=== PATIENT | male | born 1935 | race Caucasian/White ===

== ENCOUNTER 2017-04-22 10:00 | Outpatient (RCR) | payer MEDICARE, OTHER, SELFPAY ==
[2017-04-11 09:40] VITALS: BP 140/71; PULSE 77; RESP 18; TEMP 36.4; BMI 32.0
--- NOTE | 2017-04-11 12:35 | PCM.WC.HP ---
(1) Non-pressure chronic ulcer of right lower leg with fat layer exposed Status: Acute Current Visit: Yes Code(s): L97.912 - Non-pressure chronic ulcer of unspecified part of right lower leg with fat layer exposed (2) Type 2 diabetes mellitus with diabetic polyneuropathy Status: Acute Current Visit: Yes Code(s): E11.42 - Type 2 diabetes mellitus with diabetic polyneuropathy (3) PVD (peripheral vascular disease) Status: Acute Current Visit: Yes Code(s): I73.9 - Peripheral vascular disease, unspecified (4) Edema, lower extremity Status: Acute Current Visit: Yes Code(s): R60.0 - Localized edema (5) Malnutrition Status: Acute Current Visit: Yes Code(s): E46 - Unspecified protein-calorie malnutrition History of Present Illness Date of Service: 04/11/17 Chief Complaint: non healing ulcer to right lower leg History of Wound: This 82-year-old diabetic male presents to the wound healing center today with chief complaint of nonhealing ulcer to the anterior lateral aspect of the right lower leg. Patient states approximately 2-1/2 months ago the corner of the car door caught his leg and tore some skin. Since then, the area progressively got worse. Recently the ulcer is breathing pretty stable in size. Patient has been changing dressing daily with gauze. He does relate some drainage to the area but denies any purulence. He had previously been seeing his primary care physician, Dr. Nicole, who has been treating the area. He prescribed the patient ciprofloxacin after his most recent cultures returned from the ulcer. He has 1 day left of antibiotics. Patient also relates he has tried using bactroban and silvadene to the ulcer. So far nothing has helped. He currently denies any feelings of nausea, vomiting, fever, or chills. Past Medical History Past Medical History: Please see intake form Allergies/Adverse Reactions: Allergies amoxicillin [From Augmentin] Allergy (Verified 04/11/17 09:55) Itching bacitracin [From Neosporin ([id number])] Allergy (Verified 04/11/17 09:55) Rash clavulanic acid [From Augmentin] Allergy (Verified 04/11/17 09:55) Itching neomycin [From Neosporin ([id number])] Allergy (Verified 04/11/17 09:55) Rash Penicillins Allergy (Verified 04/11/17 09:55) Unknown polymyxin B [From Neosporin ([id number])] Allergy (Verified 04/11/17 09:55) Rash prednisone Allergy (Verified 04/11/17 09:55) Itching Home Medications: Ambulatory Orders Medication Instructions Recorded Aspirin 81 mg PO DAILY 04/11/17 Atorvastatin Calcium [Lipitor] 20 mg PO QHS 04/11/17 Ciprofloxacin [Cipro] 250 mg PO BID 04/11/17 Clobetasol Propionate/Emoll 0.05 gm TP DAILY PRN 04/11/17 [Clobetasol Emollnt 0.05% Foam] Clopidogrel Bisulfate [Clopidogrel] 75 mg PO Q3D 04/11/17 Dexamethasone 1 mg PO DAILY 04/11/17 Metformin HCl 500 mg PO BID 04/11/17 Mupirocin [Bactroban] 1 applic TOPICAL DAILY PRN 04/11/17 Silver Sulfadiazine [Ssd] 25 gm TP BID 04/11/17 Lives: Spouse/ Significant Other Smoking Status: Current every day smoker Tobacco Use: Cigarettes Drugs: None Review of Systems Constitutional: Reports: Weight Change. Denies: Chills, Fever Cardiovascular: Denies: Chest Pain, Palpitations Respiratory: Denies: Cough, Shortness of Breath Musculoskeletal: Reports: Leg Pain - right lower leg in area of ulcer Skin: Reports: Wounds - right lower leg - Physical Exam Vital Signs Temp Pulse Resp BP 97.5 F L 77 18 140/71 H 04/11/17 09:40 04/11/17 09:40 04/11/17 09:40 04/11/17 09:40 General: Alert, Oriented x3, Cooperative Extremities: Capillary Refill Less than 3 Seconds, No Calf Tenderness - Negative Arslan and Raines sign bilateral, Cool, Diminished Peripheral Pulses - DP and PT pulses faintly palpable to the right. DP and PT pulses palpable to the left, Edema - Bilateral lower extremity, Tenderness - to area of ulceration to right lower leg Skin: Ulcer/ Wound - Chronic nonhealing ulcer noted to right proximal anterior lateral lower leg. Ulcer dimensions noted below. Majority of the ulcer base is yellow fibrotic tissue and adherent slough. Slight serous drainage appreciated. No surrounding cellulitis noted. No increased warmth. Edema noted to the right lower extremity. No purulence appreciated and no malodor noted. No probing, no tracking, no undermining. Wound Measurements and Assessment WC - Nurse 1 - General Ulcer Measurement Start: 04/11/17 09:09 Freq: Status: Active Protocol: Activity Type Activity Date Activity User E-Sign Co-Sign Detail Recorded Client Recorded Date Recorded By Document 04/11/17 09:40 TM [id number] 04/11/17 10:00 TM 04/11/17 09:40 Wound Center Nurse 1 [Ulcer Assessment Protocol: NORA.WD.LOC] #1 right lateral le trauma ulcer -Combined with other wound No -Current Size (cm) - Length 4.0 -Current Size (cm) - Width 2.7 -Current Size (cm) - Depth 0.4 -Total Square Cm 10.80 -Date of Last Picture (Recall this 04/11/17 field) -Photo Taken Yes -Epithelialization None Present -Tunneling No -Undermining/Tunneling No -Circular Undermining No -Classification - Thickness Full Thickness without Exposed Support Structure -Exudate Amt Large (67-100%) -Exudate Type Serosanguineous -Wound Margin Distinct, Outline Attached -Granulation Amt Small (1-33%) -Granulation Quality [place] -Slough/Fibrin Yes -Necrosis Amt Large (67-100%) -Necrotic Tissue Type Adherent Slough -Structure Exposed Fascia Fat Layer Exposed -Texture (Olamide-wound Skin Appearance) Localized Edema -Moisture (Olamide-wound Skin Appearance No Abnormality ) -Color (Olamide-wound Skin Appearance) Erythema Hemosiderin Staining -Temperature (Olamide-wound Skin No Abnormality Appearance) (Pt Warm) -Tenderness on Palpation (Olamide-wound Yes Skin Appearance) -Ulcer Cleansing Rinsed/ Irrigated with Saline -Foul Odor after Cleansing No -Anesthetic Used 4% Lidocaine Solution [Edema Assessment] -Lower Limb Edema Present Yes -Right Calf (cm) 36.5 -Right Ankle (cm) 25.1 -Left Calf (cm) 36.3 -Left Ankle (cm) 25.6 WC - Nurse 2 - General Ulcer CM Notes Start: 04/11/17 09:09 Freq: Status: Active Protocol: Activity Type Activity Date Activity User E-Sign Co-Sign Detail Recorded Client Recorded Date Recorded By Document 04/11/17 10:21 MW [id number] 04/11/17 10:28 MW 04/11/17 10:21 Wound Center Nurse 2 [Procedure/Treatment] #1 right lateral le trauma ulcer -Time 10:27 -Correct Patient Yes -Correct Side, Site, Position Yes -Correct Procedure Yes -Procedure Performed No -Post Debridement Size (cm) - Length 4.0 -Post Debridement Size (cm) - Width 2.7 -Post Debridement Size (cm) - Depth 0.4 -Total Square Cm 10.80 -Wound/Ulcer Outcome Not Healed -Ulcer Cleansing Rinsed/ Irrigated with Saline -Foul Odor after Cleansing No -Bioengineered Tissue No -Cetacaine [place] No -Bleeding Controlled with NA -Treatment Response Procedure Tolerated Well [See Physician Procedure note for Specifics] Pain Scale: 0-10 Numeric [Pain] -Is Patient Pain Free? Yes Musculoskeletal: Tenderness - Some tenderness appreciated to right lower leg in the area of the ulcer. Neurological: - - Epicritic sensation absent lower extremities. Psych/Mental Status: Normal Affect, Appropriate Debridement Note Post-Debridement Measurements/Treatment WC - Nurse 2 - General Ulcer CM Notes Start: 04/11/17 09:09 Freq: Status: Active Protocol: Activity Type Activity Date Activity User E-Sign Co-Sign Detail Recorded Client Recorded Date Recorded By Document 04/11/17 10:21 MW [id number] 04/11/17 10:28 MW 04/11/17 10:21 Wound Center Nurse 2 #1 right lateral le trauma ulcer -Time 10:27 -Correct Patient Yes -Correct Side, Site, Position Yes -Correct Procedure Yes -Procedure Performed No -Post Debridement Size (cm) - Length 4.0 -Post Debridement Size (cm) - Width 2.7 -Post Debridement Size (cm) - Depth 0.4 -Total Square Cm 10.80 -Wound/Ulcer Outcome Not Healed -Ulcer Cleansing Rinsed/ Irrigated with Saline -Foul Odor after Cleansing No -Bioengineered Tissue No -Cetacaine [place] No -Bleeding Controlled with NA -Treatment Response Procedure Tolerated Well Pain Scale: 0-10 Numeric Is Patient Pain Free? Yes No debridement was completed today Assessment/Plan Active Problems Non-pressure chronic ulcer of right lower leg with fat layer exposed (Acute) Type 2 diabetes mellitus with diabetic polyneuropathy (Acute) PVD (peripheral vascular disease) (Acute) Edema, lower extremity (Acute) Malnutrition (Acute) Assessment: Chronic nonhealing ulcer to right anterior lateral lower leg. DM with neuropathy. PVD. Lower extremity edema. Malnutrition Plan: Initial patient examination and evaluation. No significant debridement performed today due to lack of diagnostic testing. Dressing changes performed in clinic. Santyl was applied to the wound base followed by slightly moistened 4 x 4's, followed by dry 4 x 4's, Kerlix, and a light Tubigrip. Prescription given to patient for Santyl along with instructions on how to apply. Patient to have this dressing change as described above daily. No further antibiotics were prescribed today due to the area not looking acutely infected. Baseline lab work was also ordered today including CBC with differential, CMP, pre-albumin, ESR, hemoglobin A1c. LVAS and bilateral venous Doppler exams were also ordered. These results will be reviewed at follow-up visit. I also recommended a high-protein diet to help optimize wound healing. Patient was educated on all signs and symptoms of local and systemic infection and were instructed to go to the ER immediately should he notice any. All other questions were answered to the patient and the patient's satisfaction. Patient will follow-up in clinic in 1 week.
[2017-04-11 12:40] LABS: Absolute Lymphocyte Count 1.91 X10^3/ul (0.83-4.51); Absolute Neutrophil Count 11.4 X10^3/uL (2.0-7.7); Basophil# 0.05 X10^3/uL; Basophil% 0.3 % (0-1); Eosinophil# 0.05 X10^3/uL; Eosinophils% 0.3 % (0-5); Hemoglobin 14.4 g/dl (13.0-16.5); Lymphocyte # 1.91 X10^3/ul (4.0); Lymphocyte % 13.1 % (19-41); Mean Corpuscular Hgb 29.3 pg (27.0-32.0); Mean Corpuscular Volume 91.5 fL (80-94); Mean Platelet Vol. 10.6 fl (6.2-12.0); Monocyte# 1.03 X10^3/uL; Monocyte% 7.1 % (0-10); Neutrophil # 11.42 X10^3/uL (2.7-7.7); Neutrophil % 78.2 % (47-70); Platelet Count 265 K/mm3 (150-450); RBC Distribution Width CV 15.8 % (11.6-14.6); RBC Distribution Width SD 52.9 fl (35.1-43.9); Red Blood Count 4.92 M/mm3 (4.6-6.2); White Blood Count 14.6 K/mm3 (4.4-11.0)
[2017-04-11 12:42] LABS: POSITIVE COUNT NO; POSITIVE DIFFERENTIAL NO; POSITIVE MORPHOLOGY NO
--- NOTE | 2017-04-11 12:47 | HP.PCM_ITS ---
(1) Non-pressure chronic ulcer of right lower leg with fat layer exposed Status: Acute Current Visit: Yes Code(s): L97.912 - Non-pressure chronic ulcer of unspecified part of right lower leg with fat layer exposed (2) Type 2 diabetes mellitus with diabetic polyneuropathy Status: Acute Current Visit: Yes Code(s): E11.42 - Type 2 diabetes mellitus with diabetic polyneuropathy (3) PVD (peripheral vascular disease) Status: Acute Current Visit: Yes Code(s): I73.9 - Peripheral vascular disease, unspecified (4) Edema, lower extremity Status: Acute Current Visit: Yes Code(s): R60.0 - Localized edema (5) Malnutrition Status: Acute Current Visit: Yes Code(s): E46 - Unspecified protein-calorie malnutrition History of Present Illness Date of Service: 04/11/17 Chief Complaint: non healing ulcer to right lower leg History of Wound: This 82-year-old diabetic male presents to the wound healing center today with chief complaint of nonhealing ulcer to the anterior lateral aspect of the right lower leg. Patient states approximately 2-1/2 months ago the corner of the car door caught his leg and tore some skin. Since then, the area progressively got worse. Recently the ulcer is breathing pretty stable in size. Patient has been changing dressing daily with gauze. He does relate some drainage to the area but denies any purulence. He had previously been seeing his primary care physician, Dr. Nicoel, who has been treating the area. He prescribed the patient ciprofloxacin after his most recent cultures returned from the ulcer. He has 1 day left of antibiotics. Patient also relates he has tried using bactroban and silvadene to the ulcer. So far nothing has helped. He currently denies any feelings of nausea, vomiting, fever, or chills. Past Medical History Past Medical History: Please see intake form Allergies/Adverse Reactions: Allergies amoxicillin [From Augmentin] Allergy (Verified 04/11/17 09:55) Itching bacitracin [From Neosporin ([id number])] Allergy (Verified 04/11/17 09:55) Rash clavulanic acid [From Augmentin] Allergy (Verified 04/11/17 09:55) Itching neomycin [From Neosporin ([id number])] Allergy (Verified 04/11/17 09:55) Rash Penicillins Allergy (Verified 04/11/17 09:55) Unknown polymyxin B [From Neosporin ([id number])] Allergy (Verified 04/11/17 09:55) Rash prednisone Allergy (Verified 04/11/17 09:55) Itching Home Medications: Ambulatory Orders Medication Instructions Recorded Aspirin 81 mg PO DAILY 04/11/17 Atorvastatin Calcium [Lipitor] 20 mg PO QHS 04/11/17 Ciprofloxacin [Cipro] 250 mg PO BID 04/11/17 Clobetasol Propionate/Emoll 0.05 gm TP DAILY PRN 04/11/17 [Clobetasol Emollnt 0.05% Foam] Clopidogrel Bisulfate [Clopidogrel] 75 mg PO Q3D 04/11/17 Dexamethasone 1 mg PO DAILY 04/11/17 Metformin HCl 500 mg PO BID 04/11/17 Mupirocin [Bactroban] 1 applic TOPICAL DAILY PRN 04/11/17 Silver Sulfadiazine [Ssd] 25 gm TP BID 04/11/17 Lives: Spouse/ Significant Other Smoking Status: Current every day smoker Tobacco Use: Cigarettes Drugs: None Review of Systems Constitutional: Reports: Weight Change. Denies: Chills, Fever Cardiovascular: Denies: Chest Pain, Palpitations Respiratory: Denies: Cough, Shortness of Breath Musculoskeletal: Reports: Leg Pain - right lower leg in area of ulcer Skin: Reports: Wounds - right lower leg - Physical Exam Vital Signs Temp Pulse Resp BP 97.5 F L 77 18 140/71 H 04/11/17 09:40 04/11/17 09:40 04/11/17 09:40 04/11/17 09:40 General: Alert, Oriented x3, Cooperative Extremities: Capillary Refill Less than 3 Seconds, No Calf Tenderness - Negative Arslan and Raines sign bilateral, Cool, Diminished Peripheral Pulses - DP and PT pulses faintly palpable to the right. DP and PT pulses palpable to the left, Edema - Bilateral lower extremity, Tenderness - to area of ulceration to right lower leg Skin: Ulcer/ Wound - Chronic nonhealing ulcer noted to right proximal anterior lateral lower leg. Ulcer dimensions noted below. Majority of the ulcer base is yellow fibrotic tissue and adherent slough. Slight serous drainage appreciated. No surrounding cellulitis noted. No increased warmth. Edema noted to the right lower extremity. No purulence appreciated and no malodor noted. No probing, no tracking, no undermining. Wound Measurements and Assessment WC - Nurse 1 - General Ulcer Measurement Start: 04/11/17 09:09 Freq: Status: Active Protocol: Activity Type Activity Date Activity User E-Sign Co-Sign Detail Recorded Client Recorded Date Recorded By Document 04/11/17 09:40 TM [id number] 04/11/17 10:00 TM 04/11/17 09:40 Wound Center Nurse 1 [Ulcer Assessment Protocol: NORA.WD.LOC] #1 right lateral le trauma ulcer -Combined with other wound No -Current Size (cm) - Length 4.0 -Current Size (cm) - Width 2.7 -Current Size (cm) - Depth 0.4 -Total Square Cm 10.80 -Date of Last Picture (Recall this 04/11/17 field) -Photo Taken Yes -Epithelialization None Present -Tunneling No -Undermining/Tunneling No -Circular Undermining No -Classification - Thickness Full Thickness without Exposed Support Structure -Exudate Amt Large (67-100%) -Exudate Type Serosanguineous -Wound Margin Distinct, Outline Attached -Granulation Amt Small (1-33%) -Granulation Quality [place] -Slough/Fibrin Yes -Necrosis Amt Large (67-100%) -Necrotic Tissue Type Adherent Slough -Structure Exposed Fascia Fat Layer Exposed -Texture (Olamide-wound Skin Appearance) Localized Edema -Moisture (Olamide-wound Skin Appearance No Abnormality ) -Color (Olamide-wound Skin Appearance) Erythema Hemosiderin Staining -Temperature (Olamide-wound Skin No Abnormality Appearance) (Pt Warm) -Tenderness on Palpation (Olamide-wound Yes Skin Appearance) -Ulcer Cleansing Rinsed/ Irrigated with Saline -Foul Odor after Cleansing No -Anesthetic Used 4% Lidocaine Solution [Edema Assessment] -Lower Limb Edema Present Yes -Right Calf (cm) 36.5 -Right Ankle (cm) 25.1 -Left Calf (cm) 36.3 -Left Ankle (cm) 25.6 WC - Nurse 2 - General Ulcer CM Notes Start: 04/11/17 09:09 Freq: Status: Active Protocol: Activity Type Activity Date Activity User E-Sign Co-Sign Detail Recorded Client Recorded Date Recorded By Document 04/11/17 10:21 MW [id number] 04/11/17 10:28 MW 04/11/17 10:21 Wound Center Nurse 2 [Procedure/Treatment] #1 right lateral le trauma ulcer -Time 10:27 -Correct Patient Yes -Correct Side, Site, Position Yes -Correct Procedure Yes -Procedure Performed No -Post Debridement Size (cm) - Length 4.0 -Post Debridement Size (cm) - Width 2.7 -Post Debridement Size (cm) - Depth 0.4 -Total Square Cm 10.80 -Wound/Ulcer Outcome Not Healed -Ulcer Cleansing Rinsed/ Irrigated with Saline -Foul Odor after Cleansing No -Bioengineered Tissue No -Cetacaine [place] No -Bleeding Controlled with NA -Treatment Response Procedure Tolerated Well [See Physician Procedure note for Specifics] Pain Scale: 0-10 Numeric [Pain] -Is Patient Pain Free? Yes Musculoskeletal: Tenderness - Some tenderness appreciated to right lower leg in the area of the ulcer. Neurological: - - Epicritic sensation absent lower extremities. Psych/Mental Status: Normal Affect, Appropriate Debridement Note Post-Debridement Measurements/Treatment WC - Nurse 2 - General Ulcer CM Notes Start: 04/11/17 09:09 Freq: Status: Active Protocol: Activity Type Activity Date Activity User E-Sign Co-Sign Detail Recorded Client Recorded Date Recorded By Document 04/11/17 10:21 MW [id number] 04/11/17 10:28 MW 04/11/17 10:21 Wound Center Nurse 2 #1 right lateral le trauma ulcer -Time 10:27 -Correct Patient Yes -Correct Side, Site, Position Yes -Correct Procedure Yes -Procedure Performed No -Post Debridement Size (cm) - Length 4.0 -Post Debridement Size (cm) - Width 2.7 -Post Debridement Size (cm) - Depth 0.4 -Total Square Cm 10.80 -Wound/Ulcer Outcome Not Healed -Ulcer Cleansing Rinsed/ Irrigated with Saline -Foul Odor after Cleansing No -Bioengineered Tissue No -Cetacaine Hext No -Bleeding Controlled with NA -Treatment Response Procedure Tolerated Well Pain Scale: 0-10 Numeric Is Patient Pain Free? Yes No debridement was completed today Assessment/Plan Active Problems Non-pressure chronic ulcer of right lower leg with fat layer exposed (Acute) Type 2 diabetes mellitus with diabetic polyneuropathy (Acute) PVD (peripheral vascular disease) (Acute) Edema, lower extremity (Acute) Malnutrition (Acute) Assessment: Chronic nonhealing ulcer to right anterior lateral lower leg. DM with neuropathy. PVD. Lower extremity edema. Malnutrition Plan: Initial patient examination and evaluation. No significant debridement performed today due to lack of diagnostic testing. Dressing changes performed in clinic. Santyl was applied to the wound base followed by slightly moistened 4 x 4's, followed by dry 4 x 4's, Kerlix, and a light Tubigrip. Prescription given to patient for Santyl along with instructions on how to apply. Patient to have this dressing change as described above daily. No further antibiotics were prescribed today due to the area not looking acutely infected. Baseline lab work was also ordered today including CBC with differential, CMP, pre- albumin, ESR, hemoglobin A1c. LVAS and bilateral venous Doppler exams were also ordered. These results will be reviewed at follow-up visit. I also recommended a high-protein diet to help optimize wound healing. Patient was educated on all signs and symptoms of local and systemic infection and were instructed to go to the ER immediately should he notice any. All other questions were answered to the patient and the patient's satisfaction. Patient will follow-up in clinic in 1 week.
[2017-04-11 12:49] LABS: Erythrocyte Sedimentation Rate 19 mm/hr (0-20)
[2017-04-11 13:04] LABS: ALB/GLOB Ratio 0.8 RATIO (0.9-2.4); AST(SGOT) 17 U/L (15-37); Alanine Aminotransfer ALT/SGPT 36 U/L (12-78); Albumin, Serum 3.4 g/dL (3.4-5.0); Alkaline Phosphatase 58 U/L (45-117); Anion Gap 9 (5-15); BUN 23 mg/dL (7-18); BUN/Creat Ratio 21.5 RATIO (10-20); Calcium,Total 9.4 mg/dL (8.5-10.1); Chloride 104 mmol/L (98-107); Creatinine, Serum 1.07 mg/dL (0.70-1.30); EST Glomerular Filtration Rate 71 mL/min (>60); Est Glom Filt Rate - Afr Amer 85 mL/min (>60); Estimated Creatinine Clearance 54.14 ml/min; Globulin 4.2 g/dL (2.2-4.2); Glucose 166 mg/dL (70-110); Potassium 3.9 mmol/L (3.5-5.1); Prealbumin 24.4 mg/dL (20.0-40.0); Protein, Total 7.6 g/dL (6.4-8.2); Sodium Level 138 mmol/L (136-145)
[2017-04-11 13:09] LABS: Hemoglobin A1c 8.1 % (4.2-6.3)
[2017-04-18 09:22] VITALS: BP 148/86; PULSE 71; RESP 16; TEMP 36.2; BMI 32.0
--- NOTE | 2017-04-18 10:32 | PCM.WC.PN ---
(1) Non-pressure chronic ulcer of right lower leg with fat layer exposed Status: Acute Current Visit: Yes Code(s): L97.912 - Non-pressure chronic ulcer of unspecified part of right lower leg with fat layer exposed (2) Type 2 diabetes mellitus with diabetic polyneuropathy Status: Acute Current Visit: Yes Code(s): E11.42 - Type 2 diabetes mellitus with diabetic polyneuropathy (3) PVD (peripheral vascular disease) Status: Suspected Current Visit: Yes Code(s): I73.9 - Peripheral vascular disease, unspecified (4) Edema, lower extremity Status: Acute Current Visit: Yes Code(s): R60.0 - Localized edema (5) Malnutrition Status: Suspected Current Visit: Yes Code(s): E46 - Unspecified protein-calorie malnutrition Type of Wound Date of Service: 04/18/17 Chief Complaint: non healing ulcer to right lower leg with fat layer exposed History of Wound: This 82-year-old diabetic male presents to the wound healing center today with for follow up of nonhealing ulcer to the anterior lateral aspect of the right lower leg. Patient states approximately 2-1/2 months ago the corner of the car door caught his leg and tore some skin. The ulcer slowly started to develop and get worse until it got to the state it is now. Patient has been changing dressing daily since last week with santyl and dry sterile drssing and tubigrip. Denies any purulence or extending reddness surrounding ulcer. Patient finished his antibiotic prescription from Dr. Nicole. He currently denies any feelings of nausea, vomiting, fever, or chills. Progress of Wound: improving since last week - Physical Exam Vital Signs Temp Pulse Resp BP 97.1 F L 71 16 148/86 H 04/18/17 09:22 04/18/17 09:22 04/18/17 09:22 04/18/17 09:22 General: Alert, Oriented x3, Cooperative, No apparent distress Extremities: Capillary Refill Less than 3 Seconds, No Calf Tenderness - Negative Arslan and Raines sign bilateral, Diminished Peripheral Pulses - Right DP and PT pulses faintly palpable. Left DP and PT pulses palpable, Edema - Bilateral lower extremity edema appreciated, Tenderness - Some tenderness appreciated to the ulcer site Skin: Ulcer/ Wound - Chronic nonhealing ulcer noted to right proximal anterior lateral lower leg. Ulcer measurements noted below. Majority of the ulcer base is still yellow fibrotic tissue and adherent slough, with slightly more granulation tissue appreciated this week after using santyl. No surrounding cellulitis noted. No increased warmth. Edema noted to the right lower extremity, but improved since last week. No purulence appreciated and no malodor noted. No probing, no tracking, no undermining. Wound Measurements and Assessment NORA - Nurse 1 - General Ulcer Measurement Start: 04/11/17 09:09 Freq: Status: Active Protocol: Activity Type Activity Date Activity User E-Sign Co-Sign Detail Recorded Client Recorded Date Recorded By Document 04/18/17 09:22 MW [id number] 04/18/17 09:29 MW 04/18/17 09:22 Wound Center Nurse 1 [Ulcer Assessment Protocol: NORA.JASMYNE.LOC] #1 right lateral le trauma ulcer -Combined with other wound No -Current Size (cm) - Length 3.8 -Current Size (cm) - Width 2.4 -Current Size (cm) - Depth 0.3 -Total Square Cm 9.12 -Photo Taken No -Exudate Amt Medium (34-66%) -Exudate Type Serosanguineous -Wound Margin Distinct, Outline Attached -Granulation Amt Medium (34-66%) -Granulation Quality Red -Necrosis Amt Medium (34-66%) -Necrotic Tissue Type Adherent Slough -Structure Exposed N/A -Texture (Olamide-wound Skin Appearance) No Abnormality -Moisture (Olamide-wound Skin Appearance Dry/Scaly ) -Color (Olamide-wound Skin Appearance) No Abnormality -Temperature (Olamide-wound Skin No Abnormality Appearance) (Pt Warm) -Ulcer Cleansing Rinsed/ Irrigated with Saline -Foul Odor after Cleansing No -Anesthetic Used 4% Lidocaine Solution [Edema Assessment] -Right Calf (cm) 35.9 -Right Ankle (cm) 23.2 - Nurse 2 - General Ulcer CM Notes Start: 04/11/17 09:09 Freq: Status: Active Protocol: Activity Type Activity Date Activity User E-Sign Co-Sign Detail Recorded Client Recorded Date Recorded By Document 04/18/17 10:15 MW [id number] 04/18/17 10:22 MW 04/18/17 10:15 Wound Center Nurse 2 [Procedure/Treatment] #1 right lateral le trauma ulcer -Time 10:16 -Correct Patient Yes -Correct Side, Site, Position Yes -Correct Procedure Yes -Procedure Performed Yes -Type of Procedure Debridement -Clinical Debridement Selective -Post Debridement Size (cm) - Length 4.6 -Post Debridement Size (cm) - Width 2.0 -Post Debridement Size (cm) - Depth 0.3 -Total Square Cm 9.20 -Wound/Ulcer Outcome Not Healed -Ulcer Cleansing Rinsed/ Irrigated with Saline -Foul Odor after Cleansing No -Bioengineered Tissue No -Cetacaine [place] No -Bleeding Controlled with Pressure -Treatment Response Procedure Tolerated Well [See Physician Procedure note for Specifics] Pain Scale: 0-10 Numeric [Pain] -Is Patient Pain Free? Yes Musculoskeletal: Tenderness - to aforementioned ulcer Neurological: - - epicritic sensation absent to bilateral feet Psych/Mental Status: Normal Affect, Appropriate Debridement Note Post-Debridement Measurements/Treatment WC - Nurse 2 - General Ulcer CM Notes Start: 04/11/17 09:09 Freq: Status: Active Protocol: Activity Type Activity Date Activity User E-Sign Co-Sign Detail Recorded Client Recorded Date Recorded By Document 04/11/17 10:21 MW [id number] 04/11/17 10:28 MW Document 04/18/17 10:15 MW [id number] 04/18/17 10:22 MW 04/11/17 04/18/17 10:21 10:15 Wound Center Nurse 2 #1 right lateral le trauma ulcer -Time 10:27 10:16 -Correct Patient Yes Yes -Correct Side, Site, Position Yes Yes -Correct Procedure Yes Yes -Procedure Performed No Yes -Type of Procedure Debridement -Clinical Debridement Selective -Post Debridement Size (cm) - Length 4.0 4.6 -Post Debridement Size (cm) - Width 2.7 2.0 -Post Debridement Size (cm) - Depth 0.4 0.3 -Total Square Cm 10.80 9.20 -Wound/Ulcer Outcome Not Healed Not Healed -Ulcer Cleansing Rinsed/ Rinsed/ Irrigated with Irrigated with Saline Saline -Foul Odor after Cleansing No No -Bioengineered Tissue No No -Cetacaine [place] No No -Bleeding Controlled with NA Pressure -Treatment Response Procedure Procedure Tolerated Well Tolerated Well Pain Scale: 0-10 Numeric Is Patient Pain Free? Yes Yes Wound debrided: right anterior lateral lower leg Laterality: Right Wound Grade/Stage: 2 Type of Debridement: Selective debridement Anesthesia Used: 4% Lidocaine Solution Depth: in the subcutaneous layer Percentage of wound debrided: 100 Instrument Used: 3mm curette Tissue Removed: adherent slough, fibrin Severity: Fat Layer Exposed Amount of bleeding with debridement: Mild Bleeding Controlled with: Pressure Patient tolerated procedure well Assessment/Plan Active Problems Non-pressure chronic ulcer of right lower leg with fat layer exposed (Acute) Type 2 diabetes mellitus with diabetic polyneuropathy (Acute) Edema, lower extremity (Acute) Assessment: Chronic nonhealing ulcer to right anterior lateral lower leg. DM with neuropathy. PVD. Lower extremity edema. Malnutrition Plan: Patient was again examined and evaluated today. Selective debridement as noted in the clinical panel was performed. Dressing changes performed in clinic. Santyl was applied to the wound base followed by slightly moistened 4 x 4's, followed by dry 4 x 4's, Kerlix, and a light Tubigrip. Patient to undergo daily dressing changes. Decreased warmth noted this week as well as decreased erythema around the ulcer. No clinical signs of infection appreciated. Patients HgA1c was elevated. Other labs also reviewed. LEAS and bilateral venous Doppler exams will be completed on the 22 of April. These results will be reviewed at follow-up visit. I also recommended to continue high-protein diet to help optimize wound healing. Patient was educated on all signs and symptoms of local and systemic infection and were instructed to go to the ER immediately should he notice any. All other questions were answered to the patient and the patient's satisfaction. Patient will follow-up in clinic in 1 week.
--- NOTE | 2017-04-22 09:50 | VDLE_ITS ---
Reason For Study: EDEMA, PVD RIGHT LEFT CFV is compressible, spontaneous, phasic, CFV is compressible, spontaneous, phasic, competent and demonstrates normal competent, and demonstrates normal augmentation. augmentation. FV is compressible, spontaneous, phasic, FV is compressible, spontaneous, phasic, competent and demonstrates normal competent and demonstrates normal augmentation. augmentation. POP V is compressible, spontaneous, phasic, POP V is compressible, spontaneous, phasic, competent and demonstrates normal competent and demonstrates normal augmentation. augmentation. T/P Trunk is compressible. T/P Trunk is compressible. PTV is compressible. PTV is compressible. RT PerV is compressible. LT PerV is compressible. RT GSV is compressible and competent LEFT GSV is compressible and competent throughout. throughout. RT ASV in calf is INCOMPETENT for greater LEFT SSV is compressible and too small to than .5 seconds. assess for incompetency. RT SSV is competent. Procedure Exam performed in department. A preliminary report was called and/or faxed to [facility]. Interpretation Summary Deep veins of the lower extremities are bilaterally patent and compressible segmentally. There is no evidence of deep vein thrombosis on either side. Valvular competence appears intact within the proximal deep venous systems bilaterally. The greater saphenous veins appear bilaterally patent and compressible segmentally. Valvular competence appears to be intact segmentally within the greater saphenous veins bilaterally. The right small saphenous vein is patent and competent. The left small saphenous vein is patent and compressible, but too small to assess in terms of competence. An accessory saphenous vein in the right calf is incompetent. Ordering Physician: Scottie Scott Referring Physician: Heriberto Ariza Performed By: Danae Mays, RDCS, RVT
== END 2017-04-24 23:59 ==
LOC: CVS 10:00
PROVIDERS: Family Provider Family Medicine; PCP Family Medicine; Visit Provider Podiatrist
DX: E11.622 Type 2 diabetes mellitus with other skin ulcer (principal); L97.912 Non-pressure chronic ulcer of unspecified part of right lower leg with fat layer exposed; E11.42 Type 2 diabetes mellitus with diabetic polyneuropathy; E11.51 Type 2 diabetes mellitus with diabetic peripheral angiopathy without gangrene; R60.0 Localized edema; Z79.82 Long term (current) use of aspirin; Z79.899 Other long term (current) drug therapy; Z79.02 Long term (current) use of antithrombotics/antiplatelets; F17.210 Nicotine dependence, cigarettes, uncomplicated
CPT/HCPCS: 36415; 80053; 83036; 84134; 85025; 85652; 93923; 93970; 97597; 97602; 99203; G0463

== ENCOUNTER 2017-05-16 09:30 | Outpatient (RCR) | payer MEDICARE, OTHER, SELFPAY ==
[2017-04-18 09:22] VITALS: BP 148/86; BMI 32.0
[2017-04-25 01:12] VITALS: PULSE 71; RESP 16; TEMP 36.2
[2017-04-26 08:17] VITALS: BP 137/68; PULSE 69; RESP 20; TEMP 36.4; BMI 32.0
--- NOTE | 2017-04-26 10:22 | PN.PCM_ITS ---
(1) Edema, lower extremity Status: Acute Current Visit: Yes Code(s): R60.0 - Localized edema (2) Non-pressure chronic ulcer of right lower leg with fat layer exposed Status: Acute Current Visit: Yes Code(s): L97.912 - Non-pressure chronic ulcer of unspecified part of right lower leg with fat layer exposed (3) Type 2 diabetes mellitus with diabetic polyneuropathy Status: Acute Current Visit: Yes Code(s): E11.42 - Type 2 diabetes mellitus with diabetic polyneuropathy (4) Malnutrition Status: Suspected Current Visit: Yes Code(s): E46 - Unspecified protein- calorie malnutrition (5) PVD (peripheral vascular disease) Status: Suspected Current Visit: Yes Code(s): I73.9 - Peripheral vascular disease, unspecified Type of Wound Date of Service: 04/26/17 Chief Complaint: non healing ulcer to right lower leg with fat layer exposed History of Wound: This 82-year-old diabetic male presents to the wound healing center today with for follow up of nonhealing ulcer to the anterior lateral aspect of the right lower leg. Patient states approximately 2-1/2 months ago the corner of the car door caught his leg and tore some skin. The ulcer slowly started to develop and get worse until it got to the state it is now. Patient has been changing dressing daily since last week with santyl and dry sterile drssing and tubigrip. Denies any purulence or extending reddness surrounding ulcer. Patient finished his antibiotic prescription from Dr. Nicole. He currently denies any feelings of nausea, vomiting, fever, or chills. Progress of Wound: improving since last week patient completed his arterial brachial studies and it did show that he does have on his venous studies a blockage in the lower right just above the ankle venous. Patient also shows on a elevated white count with a shift in the neutrophils. The ulcer itself looked still had a lot of slough but cleaned well with debridement. Also developed a skin tear under the left knee from tape. - Physical Exam Vital Signs Temp Pulse Resp BP 97.5 F L 69 20 H 137/68 H 04/26/17 08:17 04/26/17 08:17 04/26/17 08:17 04/26/17 08:17 General: Oriented x3, Cooperative, Well developed HEENT: Atraumatic, PERRLA Oral: Moist Mucosa Neck: Supple, No JVD Lungs: Clear to auscultation, Normal air movement Cardiovascular: Regular rate, Regular Rhythm Abdomen: Bowel Sounds Present, Soft, Non Tender, No Hepato-splenomegaly Extremities: No clubbing, No edema, - - Right lower leg ulcers lateral and medial skin tear Wound Measurements and Assessment - Nurse 1 - General Ulcer Measurement Start: 04/26/17 08:17 Freq: Status: Active Protocol: Activity Type Activity Date Activity User E-Sign Co-Sign Detail Recorded Client Recorded Date Recorded By Document 04/26/17 08:17 SKY [id number] 04/26/17 08:31 SKY 04/26/17 08:17 Wound Center Nurse 1 [Ulcer Assessment Protocol: .WD.LOC] #2 RIGHT MEDIAL LE -Combined with other wound No -Current Size (cm) - Length 3.0 -Current Size (cm) - Width 0.8 -Current Size (cm) - Depth 0.1 -Total Square Cm 2.40 -Date of Last Picture (Recall this 04/26/17 field) -Photo Taken Yes -Epithelialization None Present -Tunneling No -Undermining/Tunneling No -Circular Undermining No -Classification - Thickness Full Thickness without Exposed Support Structure -Exudate Amt None Present (0 %) -Exudate Type Serosanguineous -Wound Margin Distinct, Outline Attached -Granulation Amt None Present (0 %) -Granulation Quality N/A -Slough/Fibrin No -Necrosis Amt None Present (0 %) -Structure Exposed None/Limited to Skin Breakdown -Texture (Olamide-wound Skin Appearance) No Abnormality -Moisture (Olamide-wound Skin Appearance No Abnormality ) -Color (Olamide-wound Skin Appearance) No Abnormality -Temperature (Olamide-wound Skin No Abnormality Appearance) (Pt Warm) -Ulcer Cleansing Rinsed/ Irrigated with Saline -Foul Odor after Cleansing No -Anesthetic Used 4% Lidocaine Solution #1 right lateral le trauma ulcer -Combined with other wound No -Current Size (cm) - Length 4.0 -Current Size (cm) - Width 2.1 -Current Size (cm) - Depth 0.3 -Total Square Cm 8.40 -Date of Last Picture (Recall this 04/11/17 field) -Photo Taken No -Epithelialization None Present -Tunneling No -Undermining/Tunneling No -Circular Undermining No -Classification - Thickness Full Thickness without Exposed Support Structure -Exudate Amt Small (1-33%) -Exudate Type Serosanguineous -Wound Margin Distinct, Outline Attached -Granulation Amt Medium (34-66%) -Granulation Quality Red -Slough/Fibrin Yes -Necrosis Amt None Present (0 %) -Necrotic Tissue Type Adherent Slough -Structure Exposed N/A -Texture (Olamide-wound Skin Appearance) No Abnormality -Moisture (Olamide-wound Skin Appearance No Abnormality ) -Color (Olamide-wound Skin Appearance) No Abnormality -Temperature (Olamide-wound Skin No Abnormality Appearance) (Pt Warm) -Tenderness on Palpation (Olamide-wound Yes: WOUND Skin Appearance) BORDERS -Ulcer Cleansing Rinsed/ Irrigated with Saline -Foul Odor after Cleansing No -Anesthetic Used 4% Lidocaine Solution [Edema Assessment] -Lower Limb Edema Present NA -Point of measurement (cm from the 35.5 medial instep) -Point of Measurement (cm from the 23.8 medial instep) WC - Nurse 2 - General Ulcer CM Notes Start: 04/26/17 08:17 Freq: Status: Active Protocol: Activity Type Activity Date Activity User E-Sign Co-Sign Detail Recorded Client Recorded Date Recorded By Document 18 08:46 MW [id number] 18 08:51 MW 18 08:46 Wound Center Nurse 2 [Procedure/Treatment] #2 RIGHT MEDIAL LE -Time 08:47 -Correct Patient Yes -Correct Side, Site, Position Yes -Correct Procedure Yes -Procedure Performed Yes -Type of Procedure Debridement -Clinical Debridement Subcutaneous -Post Debridement Size (cm) - Length 3.9 -Post Debridement Size (cm) - Width 2.0 -Post Debridement Size (cm) - Depth 0.3 -Total Square Cm 7.80 -Wound/Ulcer Outcome Not Healed -Ulcer Cleansing Rinsed/ Irrigated with Saline -Foul Odor after Cleansing No -Bioengineered Tissue No -Cetacaine [place] No -Bleeding Controlled with Pressure -Treatment Response Procedure Tolerated Well #1 right lateral le trauma ulcer -Time 08:47 -Correct Patient Yes -Correct Side, Site, Position Yes -Correct Procedure Yes -Procedure Performed Yes -Type of Procedure Debridement -Clinical Debridement Subcutaneous -Post Debridement Size (cm) - Length 3.1 -Post Debridement Size (cm) - Width 0.8 -Post Debridement Size (cm) - Depth 0.1 -Total Square Cm 2.48 -Wound/Ulcer Outcome Not Healed -Ulcer Cleansing Rinsed/ Irrigated with Saline -Foul Odor after Cleansing No -Bioengineered Tissue No -Cetacaine [place] No -Bleeding Controlled with NA [See Physician Procedure note for Specifics] Pain Scale: 0-10 Numeric [Pain] -Is Patient Pain Free? Yes Musculoskeletal: No Tenderness to Palpation of Joints or Extremities Lymphatic: No Cervical, Supraclavicular, or Inguinal Adenopathy Neurological: Cranial nerves II-XII grossly intact, Neuro grossly intact Psych/Mental Status: Normal Affect, Appropriate Debridement Note Post-Debridement Measurements/Treatment WC - Nurse 2 - General Ulcer CM Notes Start: 04/26/17 08:17 Freq: Status: Active Protocol: Activity Type Activity Date Activity User E-Sign Co-Sign Detail Recorded Client Recorded Date Recorded By Document 04/26/17 08:46 MW [id number] 04/26/17 08:51 MW 04/26/17 08:46 Wound Center Nurse 2 #2 RIGHT MEDIAL LE -Time 08:47 -Correct Patient Yes -Correct Side, Site, Position Yes -Correct Procedure Yes -Procedure Performed Yes -Type of Procedure Debridement -Clinical Debridement Subcutaneous -Post Debridement Size (cm) - Length 3.9 -Post Debridement Size (cm) - Width 2.0 -Post Debridement Size (cm) - Depth 0.3 -Total Square Cm 7.80 -Wound/Ulcer Outcome Not Healed -Ulcer Cleansing Rinsed/ Irrigated with Saline -Foul Odor after Cleansing No -Bioengineered Tissue No -Cetacaine [place] No -Bleeding Controlled with Pressure -Treatment Response Procedure Tolerated Well #1 right lateral le trauma ulcer -Time 08:47 -Correct Patient Yes -Correct Side, Site, Position Yes -Correct Procedure Yes -Procedure Performed Yes -Type of Procedure Debridement -Clinical Debridement Subcutaneous -Post Debridement Size (cm) - Length 3.1 -Post Debridement Size (cm) - Width 0.8 -Post Debridement Size (cm) - Depth 0.1 -Total Square Cm 2.48 -Wound/Ulcer Outcome Not Healed -Ulcer Cleansing Rinsed/ Irrigated with Saline -Foul Odor after Cleansing No -Bioengineered Tissue No -Cetacaine [place] No -Bleeding Controlled with NA Pain Scale: 0-10 Numeric Is Patient Pain Free? Yes Wound debrided: Right lateral lower leg ulcer Type of Debridement: Excisional debridement Anesthesia Used: 5% Lidocaine Gel Depth: Down to and including healthy tissue, in the subcutaneous layer Percentage of wound debrided: 100 Instrument Used: 5mm curette Tissue Removed: And some fibrin Severity: Fat Layer Exposed Amount of bleeding with debridement: Moderate Bleeding Controlled with: Compression and gauze Patient tolerated procedure well Assessment/Plan Active Problems Non-pressure chronic ulcer of right lower leg with fat layer exposed (Acute) Type 2 diabetes mellitus with diabetic polyneuropathy (Acute) Edema, lower extremity (Acute) Assessment: Chronic nonhealing ulcer to right anterior lateral lower leg. DM with neuropathy. PVD. Lower extremity edema. Malnutrition Plan: Patient was again examined and evaluated today. Excisional debridement was performed. Dressing changes performed in clinic. We are going to change his dressing now to a Promogran to promote growth also will apply for epi effects for his healing process in the leg wound. No clinical signs of infection appreciated. Patients HgA1c was elevated. Other labs also reviewed. Patient is already established with a vascular surgeon and has a follow-up appointment with him in [place]. I also recommended to continue high-protein diet to help optimize wound healing. Patient was educated on all signs and symptoms of local and systemic infection and were instructed to go to the ER immediately should he notice any. All other questions were answered to the patient and the patient's satisfaction. Patient will follow-up in clinic in 1 week.
--- NOTE | 2017-04-28 11:28 | LEAS ---
Arterial Study - Arterial Study Arterial Study: This is an 82-year-old male with a history of diabetes mellitus. Suspecting the presence of atherosclerotic peripheral arterial occlusive disease, the patient was brought to the noninvasive vascular laboratory at this time for the purpose of bilateral noninvasive lower extremity arterial assessment. Doppler signal assessment was used to evaluate the pulses at ankle level bilaterally. On the right, the posterior tibial and dorsalis pedis pulses were triphasic. The left posterior tibial and dorsalis pedis pulses were biphasic. Segmental limb pressures were obtained bilaterally. The right ankle pressure, as determined by posterior tibial pulse, was measured at 167 mmHg. The right ankle pressure, as determined by dorsalis pedis pulse, was measured at 157 mmHg. The right digital pressure was measured at 122 mmHg. The left ankle pressure, as determined by posterior tibial pulse, was measured at 173 mmHg. The left ankle pressure, as determined by dorsalis pedis pulse, was measured at 154 mmHg. The left digital pressure was measured at 123 mmHg. Pulse-volume recordings were obtained bilaterally and segmentally. Waveform amplitudes appeared to be satisfactory at all levels bilaterally, including low thigh, calf, ankle, and digital levels. Resting ankle-brachial indices were calculated bilaterally. The resting right ankle-brachial index was calculated to be 1.06. The resting left ankle-brachial index was calculated to be 1.09. Digital-brachial indices were calculated bilaterally. The right digital-brachial index was calculated to be 0.77. The left digital-brachial index was calculated to be 0.78. Impression: Based upon the findings of this resting noninvasive lower extremity arterial study, there is no evidence of significant atherosclerotic peripheral arterial occlusive disease in the lower extremities bilaterally. Triphasic waveforms are noted at ankle level on the right. Biphasic waveforms are noted at ankle level on the left. Resting ankle-brachial indices were bilaterally normal. Digital-brachial indices were also normal bilaterally. In summary, this represents a normal resting noninvasive lower extremity arterial study bilaterally.
--- NOTE | 2017-04-28 11:31 | LEAS_ITS ---
Arterial Study - Arterial Study Arterial Study: This is an 82-year-old male with a history of diabetes mellitus. Suspecting the presence of atherosclerotic peripheral arterial occlusive disease, the patient was brought to the noninvasive vascular laboratory at this time for the purpose of bilateral noninvasive lower extremity arterial assessment. Doppler signal assessment was used to evaluate the pulses at ankle level bilaterally. On the right, the posterior tibial and dorsalis pedis pulses were triphasic. The left posterior tibial and dorsalis pedis pulses were biphasic. Segmental limb pressures were obtained bilaterally. The right ankle pressure, as determined by posterior tibial pulse, was measured at 167 mmHg. The right ankle pressure, as determined by dorsalis pedis pulse, was measured at 157 mmHg. The right digital pressure was measured at 122 mmHg. The left ankle pressure, as determined by posterior tibial pulse, was measured at 173 mmHg. The left ankle pressure, as determined by dorsalis pedis pulse, was measured at 154 mmHg. The left digital pressure was measured at 123 mmHg. Pulse-volume recordings were obtained bilaterally and segmentally. Waveform amplitudes appeared to be satisfactory at all levels bilaterally, including low thigh, calf, ankle, and digital levels. Resting ankle-brachial indices were calculated bilaterally. The resting right ankle-brachial index was calculated to be 1.06. The resting left ankle- brachial index was calculated to be 1.09. Digital-brachial indices were calculated bilaterally. The right digital- brachial index was calculated to be 0.77. The left digital-brachial index was calculated to be 0.78. Impression: Based upon the findings of this resting noninvasive lower extremity arterial study, there is no evidence of significant atherosclerotic peripheral arterial occlusive disease in the lower extremities bilaterally. Triphasic waveforms are noted at ankle level on the right. Biphasic waveforms are noted at ankle level on the left. Resting ankle-brachial indices were bilaterally normal. Digital-brachial indices were also normal bilaterally. In summary, this represents a normal resting noninvasive lower extremity arterial study bilaterally.
[2017-05-03 09:37] VITALS: BP 149/72; PULSE 65; RESP 18; TEMP 36.4; BMI 32.0
--- NOTE | 2017-05-03 12:23 | PCM.WC.PN ---
(1) Edema, lower extremity Status: Acute Current Visit: Yes Code(s): R60.0 - Localized edema (2) Non-pressure chronic ulcer of right lower leg with fat layer exposed Status: Acute Current Visit: Yes Code(s): L97.912 - Non-pressure chronic ulcer of unspecified part of right lower leg with fat layer exposed (3) Type 2 diabetes mellitus with diabetic polyneuropathy Status: Acute Current Visit: Yes Code(s): E11.42 - Type 2 diabetes mellitus with diabetic polyneuropathy (4) Malnutrition Status: Suspected Current Visit: Yes Code(s): E46 - Unspecified protein-calorie malnutrition (5) PVD (peripheral vascular disease) Status: Suspected Current Visit: Yes Code(s): I73.9 - Peripheral vascular disease, unspecified Type of Wound Date of Service: 05/03/17 Chief Complaint: non healing ulcer to right lower leg with fat layer exposed History of Wound: This 82-year-old diabetic male presents to the wound healing center today with for follow up of nonhealing ulcer to the anterior lateral aspect of the right lower leg. Patient states approximately 2-1/2 months ago the corner of the car door caught his leg and tore some skin. The ulcer slowly started to develop and get worse until it got to the state it is now. Patient has been changing dressing daily since last week with santyl and dry sterile drssing and tubigrip. Denies any purulence or extending reddness surrounding ulcer. Patient finished his antibiotic prescription from Dr. Nicole. He currently denies any feelings of nausea, vomiting, fever, or chills. Progress of Wound: improving since last week patient completed his arterial brachial studies and it did show that he does have on his venous studies a blockage in the lower right just above the ankle venous. Patient also shows on a elevated white count with a shift in the neutrophils. The ulcer itself looked still had a lot of slough but cleaned well with debridement. Also developed a skin tear under the left knee from tape. Patient was approved for epi fix and will receive #1 today - Physical Exam Vital Signs Temp Pulse Resp BP 97.6 F L 65 18 149/72 H 05/03/17 09:37 05/03/17 09:37 05/03/17 09:37 05/03/17 09:37 General: Oriented x3, Cooperative, Well developed HEENT: Atraumatic, PERRLA Oral: Moist Mucosa Neck: Supple, No JVD Lungs: Clear to auscultation, Normal air movement Cardiovascular: Regular rate, Regular Rhythm Abdomen: Bowel Sounds Present, Soft, Non Tender, No Hepato-splenomegaly Extremities: No clubbing, No edema, - - Right lateral and medial leg ulcers Wound Measurements and Assessment WC - Nurse 1 - General Ulcer Measurement Start: 04/26/17 08:17 Freq: Status: Active Protocol: Activity Type Activity Date Activity User E-Sign Co-Sign Detail Recorded Client Recorded Date Recorded By Document 05/03/17 09:37 DL [id number] 05/03/17 09:48 DL 05/03/17 09:37 Wound Center Nurse 1 [Ulcer Assessment Protocol: NORA.WD.LOC] #2 RIGHT MEDIAL LE -Current Size (cm) - Length 2.7 -Current Size (cm) - Width 0.8 -Current Size (cm) - Depth 0.1 -Total Square Cm 2.16 -Photo Taken No -Exudate Amt Small (1-33%) -Exudate Type Serosanguineous -Wound Margin Distinct, Outline Attached -Granulation Amt None Present (0 %) -Necrosis Amt Large (67-100%) -Necrotic Tissue Type Adherent Slough -Structure Exposed N/A -Texture (Olamide-wound Skin Appearance) Scarring -Moisture (Olamide-wound Skin Appearance No Abnormality ) -Color (Olamide-wound Skin Appearance) Hemosiderin Staining -Temperature (Olamide-wound Skin No Abnormality Appearance) (Pt Warm) -Ulcer Cleansing Wound Cleanser -Foul Odor after Cleansing No -Anesthetic Used 4% Lidocaine Solution #1 right lateral le trauma ulcer -Current Size (cm) - Length 4 -Current Size (cm) - Width 2.1 -Current Size (cm) - Depth 0.3 -Total Square Cm 8.4 -Photo Taken No -Exudate Amt Medium (34-66%) -Exudate Type Serosanguineous -Wound Margin Distinct, Outline Attached -Granulation Amt Small (1-33%) -Granulation Quality [place] -Necrosis Amt Large (67-100%) -Necrotic Tissue Type Adherent Slough -Structure Exposed N/A -Texture (Olamide-wound Skin Appearance) Scarring -Moisture (Olamide-wound Skin Appearance No Abnormality ) -Color (Olamide-wound Skin Appearance) Erythema Hemosiderin Staining -Temperature (Olamide-wound Skin No Abnormality Appearance) (Pt Warm) -Ulcer Cleansing Wound Cleanser -Foul Odor after Cleansing No -Anesthetic Used 4% Lidocaine Solution [Edema Assessment] -Right Calf (cm) 36.5 -Right Ankle (cm) 24 WC - Nurse 2 - General Ulcer CM Notes Start: 04/26/17 08:17 Freq: Status: Active Protocol: Activity Type Activity Date Activity User E-Sign Co-Sign Detail Recorded Client Recorded Date Recorded By Document 05/03/17 10:27 MW [id number] 05/03/17 10:37 MW 05/03/17 10:27 Wound Center Nurse 2 [Procedure/Treatment] #2 RIGHT MEDIAL LE -Time 10:29 -Correct Patient Yes -Correct Side, Site, Position Yes -Correct Procedure Yes -Procedure Performed Yes -Type of Procedure Debridement -Clinical Debridement Subcutaneous -Post Debridement Size (cm) - Length 2.5 -Post Debridement Size (cm) - Width 0.7 -Post Debridement Size (cm) - Depth 0.1 -Total Square Cm 1.75 -Wound/Ulcer Outcome Not Healed -Ulcer Cleansing Rinsed/ Irrigated with Saline -Foul Odor after Cleansing No -Bioengineered Tissue No -Type of bioengineered Tissue EPIFIX -Expiration Date 11/23/21 -Product Lot Number [id number] -Percent Used 100 -Saline Lot Number [id number] -Bleeding Controlled with Pressure -Treatment Response Procedure Tolerated Well #1 right lateral le trauma ulcer -Time 10:29 -Correct Patient Yes -Correct Side, Site, Position Yes -Correct Procedure Yes -Procedure Performed Yes -Type of Procedure Debridement -Clinical Debridement Subcutaneous -Post Debridement Size (cm) - Length 3.8 -Post Debridement Size (cm) - Width 2.0 -Post Debridement Size (cm) - Depth 0.3 -Total Square Cm 7.60 -Wound/Ulcer Outcome Not Healed -Foul Odor after Cleansing No -Type of bioengineered Tissue EPIFIX -Expiration Date 11/23/21 -Product Lot Number [id number] -Percent Used 100 -Saline Lot Number [id number] -Bleeding Controlled with Pressure -Treatment Response Procedure Tolerated Well [See Physician Procedure note for Specifics] Pain Scale: 0-10 Numeric [Pain] -Is Patient Pain Free? Yes Musculoskeletal: No Tenderness to Palpation of Joints or Extremities Lymphatic: No Cervical, Supraclavicular, or Inguinal Adenopathy Neurological: Cranial nerves II-XII grossly intact, Neuro grossly intact Psych/Mental Status: Normal Affect, Appropriate, Alert and oriented to time, place, person, mood and affect Debridement Note Post-Debridement Measurements/Treatment WC - Nurse 2 - General Ulcer CM Notes Start: 04/26/17 08:17 Freq: Status: Active Protocol: Activity Type Activity Date Activity User E-Sign Co-Sign Detail Recorded Client Recorded Date Recorded By Document 04/26/17 08:46 MW [id number] 04/26/17 08:51 MW Document 05/03/17 10:27 MW [id number] 05/03/17 10:37 MW 04/26/17 05/03/17 08:46 10:27 Wound Center Nurse 2 #2 RIGHT MEDIAL LE -Time 08:47 10:29 -Correct Patient Yes Yes -Correct Side, Site, Position Yes Yes -Correct Procedure Yes Yes -Procedure Performed Yes Yes -Type of Procedure Debridement Debridement -Clinical Debridement Subcutaneous Subcutaneous -Post Debridement Size (cm) - Length 3.9 2.5 -Post Debridement Size (cm) - Width 2.0 0.7 -Post Debridement Size (cm) - Depth 0.3 0.1 -Total Square Cm 7.80 1.75 -Wound/Ulcer Outcome Not Healed Not Healed -Ulcer Cleansing Rinsed/ Rinsed/ Irrigated with Irrigated with Saline Saline -Foul Odor after Cleansing No No -Bioengineered Tissue No No -Type of bioengineered Tissue EPIFIX -Expiration Date 11/23/21 -Product Lot Number [id number] -Percent Used 100 -Saline Lot Number [id number] -Cetacaine [place] No -Bleeding Controlled with Pressure Pressure -Treatment Response Procedure Procedure Tolerated Well Tolerated Well #1 right lateral le trauma ulcer -Time 08:47 10:29 -Correct Patient Yes Yes -Correct Side, Site, Position Yes Yes -Correct Procedure Yes Yes -Procedure Performed Yes Yes -Type of Procedure Debridement Debridement -Clinical Debridement Subcutaneous Subcutaneous -Post Debridement Size (cm) - Length 3.1 3.8 -Post Debridement Size (cm) - Width 0.8 2.0 -Post Debridement Size (cm) - Depth 0.1 0.3 -Total Square Cm 2.48 7.60 -Wound/Ulcer Outcome Not Healed Not Healed -Ulcer Cleansing Rinsed/ Irrigated with Saline -Foul Odor after Cleansing No No -Bioengineered Tissue No -Type of bioengineered Tissue EPIFIX -Expiration Date 11/23/21 -Product Lot Number [id number] -Percent Used 100 -Saline Lot Number [id number] -Cetacaine [place] No -Bleeding Controlled with NA Pressure -Treatment Response Procedure Tolerated Well Pain Scale: 0-10 Numeric Is Patient Pain Free? Yes Yes Wound debrided: Lateral leg ulcer Type of Debridement: Excisional debridement Anesthesia Used: 5% Lidocaine Gel Depth: Down to and including healthy tissue, in the subcutaneous layer Percentage of wound debrided: 100 Instrument Used: 5mm curette Tissue Removed: Slough and fibrin Severity: Limited To Skin Breakdown Amount of bleeding with debridement: Mild Bleeding Controlled with: Compression and gauze Patient tolerated procedure well - Additional Wound Wound debrided: Medial skin tear ulcer Laterality: Right Type of Debridement: Excisional debridement Anesthesia Used: 5% Lidocaine Gel Depth: Down to and including healthy tissue, in the subcutaneous layer Percentage of wound debrided: 100 Instrument Used: 5mm curette Tissue Removed: Fibrin and some slough Severity: Limited To Skin Breakdown Amount of bleeding with debridement: Mild Bleeding Controlled with: Compression and gauze Patient tolerated procedure: Patient tolerated procedure well Assessment/Plan Active Problems Edema, lower extremity (Acute) Type 2 diabetes mellitus with diabetic polyneuropathy (Acute) Non-pressure chronic ulcer of right lower leg with fat layer exposed (Acute) Assessment: Chronic nonhealing ulcer to right anterior lateral lower leg. DM with neuropathy. PVD. Lower extremity edema. Malnutrition Plan: Patient was again examined and evaluated today. Excisional debridement was performed. Patient received his first epi fix to lateral and medial ulcers. No clinical signs of infection appreciated. Patients HgA1c was elevated. Other labs also reviewed. Patient is already established with a vascular surgeon and has a follow-up appointment with him in [place]. I also recommended to continue high-protein diet to help optimize wound healing. Patient was educated on all signs and symptoms of local and systemic infection and were instructed to go to the ER immediately should he notice any. All other questions were answered to the patient and the patient's satisfaction. Patient will follow-up in clinic in 1 week.
--- NOTE | 2017-05-03 12:27 | PN.PCM_ITS ---
(1) Edema, lower extremity Status: Acute Current Visit: Yes Code(s): R60.0 - Localized edema (2) Non-pressure chronic ulcer of right lower leg with fat layer exposed Status: Acute Current Visit: Yes Code(s): L97.912 - Non-pressure chronic ulcer of unspecified part of right lower leg with fat layer exposed (3) Type 2 diabetes mellitus with diabetic polyneuropathy Status: Acute Current Visit: Yes Code(s): E11.42 - Type 2 diabetes mellitus with diabetic polyneuropathy (4) Malnutrition Status: Suspected Current Visit: Yes Code(s): E46 - Unspecified protein- calorie malnutrition (5) PVD (peripheral vascular disease) Status: Suspected Current Visit: Yes Code(s): I73.9 - Peripheral vascular disease, unspecified Type of Wound Date of Service: 05/03/17 Chief Complaint: non healing ulcer to right lower leg with fat layer exposed History of Wound: This 82-year-old diabetic male presents to the wound healing center today with for follow up of nonhealing ulcer to the anterior lateral aspect of the right lower leg. Patient states approximately 2-1/2 months ago the corner of the car door caught his leg and tore some skin. The ulcer slowly started to develop and get worse until it got to the state it is now. Patient has been changing dressing daily since last week with santyl and dry sterile drssing and tubigrip. Denies any purulence or extending reddness surrounding ulcer. Patient finished his antibiotic prescription from Dr. Nicole. He currently denies any feelings of nausea, vomiting, fever, or chills. Progress of Wound: improving since last week patient completed his arterial brachial studies and it did show that he does have on his venous studies a blockage in the lower right just above the ankle venous. Patient also shows on a elevated white count with a shift in the neutrophils. The ulcer itself looked still had a lot of slough but cleaned well with debridement. Also developed a skin tear under the left knee from tape. Patient was approved for epi fix and will receive #1 today - Physical Exam Vital Signs Temp Pulse Resp BP 97.6 F L 65 18 149/72 H 05/03/17 09:37 05/03/17 09:37 05/03/17 09:37 05/03/17 09:37 General: Oriented x3, Cooperative, Well developed HEENT: Atraumatic, PERRLA Oral: Moist Mucosa Neck: Supple, No JVD Lungs: Clear to auscultation, Normal air movement Cardiovascular: Regular rate, Regular Rhythm Abdomen: Bowel Sounds Present, Soft, Non Tender, No Hepato-splenomegaly Extremities: No clubbing, No edema, - - Right lateral and medial leg ulcers Wound Measurements and Assessment WC - Nurse 1 - General Ulcer Measurement Start: 04/26/17 08:17 Freq: Status: Active Protocol: Activity Type Activity Date Activity User E-Sign Co-Sign Detail Recorded Client Recorded Date Recorded By Document 05/03/17 09:37 DL [id number] 05/03/17 09:48 DL 05/03/17 09:37 Wound Center Nurse 1 [Ulcer Assessment Protocol: NORA.WD.LOC] #2 RIGHT MEDIAL LE -Current Size (cm) - Length 2.7 -Current Size (cm) - Width 0.8 -Current Size (cm) - Depth 0.1 -Total Square Cm 2.16 -Photo Taken No -Exudate Amt Small (1-33%) -Exudate Type Serosanguineous -Wound Margin Distinct, Outline Attached -Granulation Amt None Present (0 %) -Necrosis Amt Large (67-100%) -Necrotic Tissue Type Adherent Slough -Structure Exposed N/A -Texture (Olamide-wound Skin Appearance) Scarring -Moisture (Olamide-wound Skin Appearance No Abnormality ) -Color (Olamide-wound Skin Appearance) Hemosiderin Staining -Temperature (Olamide-wound Skin No Abnormality Appearance) (Pt Warm) -Ulcer Cleansing Wound Cleanser -Foul Odor after Cleansing No -Anesthetic Used 4% Lidocaine Solution #1 right lateral le trauma ulcer -Current Size (cm) - Length 4 -Current Size (cm) - Width 2.1 -Current Size (cm) - Depth 0.3 -Total Square Cm 8.4 -Photo Taken No -Exudate Amt Medium (34-66%) -Exudate Type Serosanguineous -Wound Margin Distinct, Outline Attached -Granulation Amt Small (1-33%) -Granulation Quality [place] -Necrosis Amt Large (67-100%) -Necrotic Tissue Type Adherent Slough -Structure Exposed N/A -Texture (Olamide-wound Skin Appearance) Scarring -Moisture (Olamide-wound Skin Appearance No Abnormality ) -Color (Olamide-wound Skin Appearance) Erythema Hemosiderin Staining -Temperature (Olamide-wound Skin No Abnormality Appearance) (Pt Warm) -Ulcer Cleansing Wound Cleanser -Foul Odor after Cleansing No -Anesthetic Used 4% Lidocaine Solution [Edema Assessment] -Right Calf (cm) 36.5 -Right Ankle (cm) 24 WC - Nurse 2 - General Ulcer CM Notes Start: 04/26/17 08:17 Freq: Status: Active Protocol: Activity Type Activity Date Activity User E-Sign Co-Sign Detail Recorded Client Recorded Date Recorded By Document 05/03/17 10:27 MW [id number] 05/03/17 10:37 MW 05/03/17 10:27 Wound Center Nurse 2 [Procedure/Treatment] #2 RIGHT MEDIAL LE -Time 10:29 -Correct Patient Yes -Correct Side, Site, Position Yes -Correct Procedure Yes -Procedure Performed Yes -Type of Procedure Debridement -Clinical Debridement Subcutaneous -Post Debridement Size (cm) - Length 2.5 -Post Debridement Size (cm) - Width 0.7 -Post Debridement Size (cm) - Depth 0.1 -Total Square Cm 1.75 -Wound/Ulcer Outcome Not Healed -Ulcer Cleansing Rinsed/ Irrigated with Saline -Foul Odor after Cleansing No -Bioengineered Tissue No -Type of bioengineered Tissue EPIFIX -Expiration Date 11/23/21 -Product Lot Number [id number] -Percent Used 100 -Saline Lot Number [id number] -Bleeding Controlled with Pressure -Treatment Response Procedure Tolerated Well #1 right lateral le trauma ulcer -Time 10:29 -Correct Patient Yes -Correct Side, Site, Position Yes -Correct Procedure Yes -Procedure Performed Yes -Type of Procedure Debridement -Clinical Debridement Subcutaneous -Post Debridement Size (cm) - Length 3.8 -Post Debridement Size (cm) - Width 2.0 -Post Debridement Size (cm) - Depth 0.3 -Total Square Cm 7.60 -Wound/Ulcer Outcome Not Healed -Foul Odor after Cleansing No -Type of bioengineered Tissue EPIFIX -Expiration Date 11/23/21 -Product Lot Number [id number] -Percent Used 100 -Saline Lot Number [id number] -Bleeding Controlled with Pressure -Treatment Response Procedure Tolerated Well [See Physician Procedure note for Specifics] Pain Scale: 0-10 Numeric [Pain] -Is Patient Pain Free? Yes Musculoskeletal: No Tenderness to Palpation of Joints or Extremities Lymphatic: No Cervical, Supraclavicular, or Inguinal Adenopathy Neurological: Cranial nerves II-XII grossly intact, Neuro grossly intact Psych/Mental Status: Normal Affect, Appropriate, Alert and oriented to time, place, person, mood and affect Debridement Note Post-Debridement Measurements/Treatment WC - Nurse 2 - General Ulcer CM Notes Start: 04/26/17 08:17 Freq: Status: Active Protocol: Activity Type Activity Date Activity User E-Sign Co-Sign Detail Recorded Client Recorded Date Recorded By Document 04/26/17 08:46 MW [id number] 04/26/17 08:51 MW Document 05/03/17 10:27 MW [id number] 05/03/17 10:37 MW 04/26/17 05/03/17 08:46 10:27 Wound Center Nurse 2 #2 RIGHT MEDIAL LE -Time 08:47 10:29 -Correct Patient Yes Yes -Correct Side, Site, Position Yes Yes -Correct Procedure Yes Yes -Procedure Performed Yes Yes -Type of Procedure Debridement Debridement -Clinical Debridement Subcutaneous Subcutaneous -Post Debridement Size (cm) - Length 3.9 2.5 -Post Debridement Size (cm) - Width 2.0 0.7 -Post Debridement Size (cm) - Depth 0.3 0.1 -Total Square Cm 7.80 1.75 -Wound/Ulcer Outcome Not Healed Not Healed -Ulcer Cleansing Rinsed/ Rinsed/ Irrigated with Irrigated with Saline Saline -Foul Odor after Cleansing No No -Bioengineered Tissue No No -Type of bioengineered Tissue EPIFIX -Expiration Date 11/23/21 -Product Lot Number [id number] -Percent Used 100 -Saline Lot Number [id number] -Cetacaine [place] No -Bleeding Controlled with Pressure Pressure -Treatment Response Procedure Procedure Tolerated Well Tolerated Well #1 right lateral le trauma ulcer -Time 08:47 10:29 -Correct Patient Yes Yes -Correct Side, Site, Position Yes Yes -Correct Procedure Yes Yes -Procedure Performed Yes Yes -Type of Procedure Debridement Debridement -Clinical Debridement Subcutaneous Subcutaneous -Post Debridement Size (cm) - Length 3.1 3.8 -Post Debridement Size (cm) - Width 0.8 2.0 -Post Debridement Size (cm) - Depth 0.1 0.3 -Total Square Cm 2.48 7.60 -Wound/Ulcer Outcome Not Healed Not Healed -Ulcer Cleansing Rinsed/ Irrigated with Saline -Foul Odor after Cleansing No No -Bioengineered Tissue No -Type of bioengineered Tissue EPIFIX -Expiration Date 11/23/21 -Product Lot Number [id number] -Percent Used 100 -Saline Lot Number [id number] -Cetacaine [place] No -Bleeding Controlled with NA Pressure -Treatment Response Procedure Tolerated Well Pain Scale: 0-10 Numeric Is Patient Pain Free? Yes Yes Wound debrided: Lateral leg ulcer Type of Debridement: Excisional debridement Anesthesia Used: 5% Lidocaine Gel Depth: Down to and including healthy tissue, in the subcutaneous layer Percentage of wound debrided: 100 Instrument Used: 5mm curette Tissue Removed: Slough and fibrin Severity: Limited To Skin Breakdown Amount of bleeding with debridement: Mild Bleeding Controlled with: Compression and gauze Patient tolerated procedure well - Additional Wound Wound debrided: Medial skin tear ulcer Laterality: Right Type of Debridement: Excisional debridement Anesthesia Used: 5% Lidocaine Gel Depth: Down to and including healthy tissue, in the subcutaneous layer Percentage of wound debrided: 100 Instrument Used: 5mm curette Tissue Removed: Fibrin and some slough Severity: Limited To Skin Breakdown Amount of bleeding with debridement: Mild Bleeding Controlled with: Compression and gauze Patient tolerated procedure: Patient tolerated procedure well Assessment/Plan Active Problems Edema, lower extremity (Acute) Type 2 diabetes mellitus with diabetic polyneuropathy (Acute) Non-pressure chronic ulcer of right lower leg with fat layer exposed (Acute) Assessment: Chronic nonhealing ulcer to right anterior lateral lower leg. DM with neuropathy. PVD. Lower extremity edema. Malnutrition Plan: Patient was again examined and evaluated today. Excisional debridement was performed. Patient received his first epi fix to lateral and medial ulcers. No clinical signs of infection appreciated. Patients HgA1c was elevated. Other labs also reviewed. Patient is already established with a vascular surgeon and has a follow-up appointment with him in [place]. I also recommended to continue high-protein diet to help optimize wound healing. Patient was educated on all signs and symptoms of local and systemic infection and were instructed to go to the ER immediately should he notice any. All other questions were answered to the patient and the patient's satisfaction. Patient will follow-up in clinic in 1 week.
[2017-05-09 09:30] VITALS: BP 132/74; PULSE 73; RESP 18; TEMP 36.2; BMI 32.0
--- NOTE | 2017-05-09 12:35 | PCM.WC.PN ---
(1) Non-pressure chronic ulcer of right lower leg with fat layer exposed Status: Acute Current Visit: Yes Code(s): L97.912 - Non-pressure chronic ulcer of unspecified part of right lower leg with fat layer exposed (2) Type 2 diabetes mellitus with diabetic polyneuropathy Status: Acute Current Visit: Yes Code(s): E11.42 - Type 2 diabetes mellitus with diabetic polyneuropathy (3) Malnutrition Status: Suspected Current Visit: Yes Code(s): E46 - Unspecified protein-calorie malnutrition (4) Edema, lower extremity Status: Acute Current Visit: Yes Code(s): R60.0 - Localized edema Type of Wound Date of Service: 05/09/17 Chief Complaint: non healing ulcer to right lower leg with fat layer exposed History of Wound: This 82-year-old diabetic male presents to the wound healing center today with for follow up of nonhealing ulcer to the anterior lateral aspect of the right lower leg. Patient states approximately 2-1/2 months ago the corner of the car door caught his leg and tore some skin. The ulcer slowly started to develop and get worse until it got to the state it is now. Denies any purulence or extending reddness surrounding ulcer. Patient finished his antibiotic prescription from Dr. Nicole. He currently denies any feelings of nausea, vomiting, fever, or chills. Progress of Wound: Improving since last week patient completed his arterial brachial studies and it did show that he does have on his venous studies a blockage in the lower right just above the ankle veins. The ulcer shows a decrease in slough and was able to be debrided today. Patient also had a skin tear that developed from the patient taking off tape on the medial aspecit of his proximal right claire. This is slightly improved in appearance from last week as well. Patient was approved for epi fix and will receive #2 today - Physical Exam Vital Signs Temp Pulse Resp BP 97.1 F L 73 18 132/74 H 05/09/17 09:30 05/09/17 09:30 05/09/17 09:30 05/09/17 09:30 General: Alert, Oriented x3, Cooperative, No apparent distress Extremities: Capillary Refill Less than 3 Seconds, No Calf Tenderness - Negative Arslan and Raines sign bilateral, Diminished Peripheral Pulses - DP and PT pulses faintly palpable to the right., Edema - Bilateral lower extremity Skin: Ulcer/ Wound - Chronic nonhealing ulcer noted to the right proximal anterior lateral lower leg. Measurements noted below. Ulcer base is a mixture of granular tissue, adherent slough, fibrin. Increasing granular tissue appreciated from previous weeks. No surrounding cellulitis, no increase in warmth, no purulence, no malodor, no probing to bone, no tracking, no undermining. The skin tear to the proximal medial aspect of the right lower leg is down to subcutaneous tissue. Base is a mixture of granular tissue and adherent slough. No probing, no tracking, no undermining, no malodor, no purulence, and no cellulitis is appreciated. Wound Measurements and Assessment - Nurse 1 - General Ulcer Measurement Start: 04/26/17 08:17 Freq: Status: Active Protocol: Activity Type Activity Date Activity User E-Sign Co-Sign Detail Recorded Client Recorded Date Recorded By Document 05/09/17 09:30 TM [id number] 05/09/17 09:33 TM 05/09/17 09:30 Wound Center Nurse 1 [Ulcer Assessment Protocol: NORA.WD.LOC] #2 RIGHT MEDIAL LE -Combined with other wound No -Current Size (cm) - Length 1.9 -Current Size (cm) - Width 0.9 -Current Size (cm) - Depth 0.1 -Total Square Cm 1.71 -Photo Taken No -Epithelialization Small 1-33% -Tunneling No -Undermining/Tunneling No -Circular Undermining No -Classification - Thickness Full Thickness without Exposed Support Structure -Exudate Amt Small (1-33%) -Exudate Type Serosanguineous -Wound Margin Distinct, Outline Attached -Granulation Amt Large (67-100%) -Granulation Quality Pale [place] -Slough/Fibrin Yes -Necrosis Amt Small (1-33%) -Necrotic Tissue Type Adherent Slough -Structure Exposed Fascia Fat Layer Exposed -Texture (Olamide-wound Skin Appearance) Localized Edema -Moisture (Olamide-wound Skin Appearance Dry/Scaly ) -Color (Olamide-wound Skin Appearance) Erythema Hemosiderin Staining -Temperature (Olamide-wound Skin No Abnormality Appearance) (Pt Warm) -Tenderness on Palpation (Olamide-wound No Skin Appearance) -Ulcer Cleansing Rinsed/ Irrigated with Saline -Foul Odor after Cleansing No -Anesthetic Used 4% Lidocaine Solution #1 right lateral le trauma ulcer -Combined with other wound No -Current Size (cm) - Length 4.0 -Current Size (cm) - Width 1.9 -Current Size (cm) - Depth 0.3 -Total Square Cm 7.60 -Photo Taken No -Epithelialization Medium 34-66% -Tunneling No -Undermining/Tunneling No -Circular Undermining No -Classification - Thickness Full Thickness without Exposed Support Structure -Exudate Amt Medium (34-66%) -Exudate Type Serosanguineous -Wound Margin Distinct, Outline Attached -Granulation Amt Medium (34-66%) -Granulation Quality Pale [place] -Slough/Fibrin Yes -Necrosis Amt Medium (34-66%) -Necrotic Tissue Type Adherent Slough -Structure Exposed Fascia Fat Layer Exposed -Texture (Olamide-wound Skin Appearance) Localized Edema Scarring -Moisture (Olamide-wound Skin Appearance No Abnormality ) -Color (Olamide-wound Skin Appearance) Erythema Hemosiderin Staining -Temperature (Olamide-wound Skin No Abnormality Appearance) (Pt Warm) -Tenderness on Palpation (Olamide-wound No Skin Appearance) -Ulcer Cleansing Rinsed/ Irrigated with Saline -Foul Odor after Cleansing No -Anesthetic Used 4% Lidocaine Solution [Edema Assessment] -Lower Limb Edema Present Yes -Right Calf (cm) 34.5 -Right Ankle (cm) 23.0 WC - Nurse 2 - General Ulcer CM Notes Start: 04/26/17 08:17 Freq: Status: Active Protocol: Activity Type Activity Date Activity User E-Sign Co-Sign Detail Recorded Client Recorded Date Recorded By Document 05/09/17 10:01 MW [id number] 05/09/17 10:13 MW 05/09/17 10:01 Wound Center Nurse 2 [Procedure/Treatment] #2 RIGHT MEDIAL LE -Time 10:08 -Correct Patient Yes -Correct Side, Site, Position Yes -Correct Procedure Yes -Procedure Performed Yes -Type of Procedure Debridement -Clinical Debridement Subcutaneous -Post Debridement Size (cm) - Length 2.2 -Post Debridement Size (cm) - Width 1.3 -Post Debridement Size (cm) - Depth 0.1 -Total Square Cm 2.86 -Wound/Ulcer Outcome Not Healed -Ulcer Cleansing Rinsed/ Irrigated with Saline -Foul Odor after Cleansing No -Bioengineered Tissue Yes -Type of bioengineered Tissue EPIFIX -Expiration Date 02/22/22 -Product Lot Number [id number] -Percent Used 100 -Other SALINE LOT # [id number] -Treatment Response Procedure Tolerated Well #1 right lateral le trauma ulcer -Time 10:09 -Correct Patient Yes -Correct Side, Site, Position Yes -Correct Procedure Yes -Procedure Performed Yes -Type of Procedure Debridement -Clinical Debridement Subcutaneous -Post Debridement Size (cm) - Length 4.0 -Post Debridement Size (cm) - Width 2.0 -Post Debridement Size (cm) - Depth 0.3 -Total Square Cm 8.00 -Wound/Ulcer Outcome Not Healed -Ulcer Cleansing Rinsed/ Irrigated with Saline -Foul Odor after Cleansing No -Bioengineered Tissue Yes -Type of bioengineered Tissue EPIFIX -Expiration Date 02/22/22 -Product Lot Number [id number] -Percent Used 100 -Bleeding Controlled with Pressure -Other SALINE LOT # [id number] -Treatment Response Procedure Not Tolerated Well [See Physician Procedure note for Specifics] Pain Scale: 0-10 Numeric [Pain] -Is Patient Pain Free? Yes Musculoskeletal: Tenderness - Some tenderness appreciated at the ulcer sites. Neurological: - - Epicritic sensation absent bilateral feet Psych/Mental Status: Normal Affect, Appropriate Debridement Note Post-Debridement Measurements/Treatment WC - Nurse 2 - General Ulcer CM Notes Start: 04/26/17 08:17 Freq: Status: Active Protocol: Activity Type Activity Date Activity User E-Sign Co-Sign Detail Recorded Client Recorded Date Recorded By Document 04/26/17 08:46 MW [id number] 04/26/17 08:51 MW Document 05/03/17 10:27 MW [id number] 05/03/17 10:37 MW Document 05/09/17 10:01 MW [id number] 05/09/17 10:13 MW 04/26/17 05/03/17 05/09/17 08:46 10:27 10:01 Wound Center Nurse 2 #2 RIGHT MEDIAL LE -Time 08:47 10:29 10:08 -Correct Patient Yes Yes Yes -Correct Side, Site, Position Yes Yes Yes -Correct Procedure Yes Yes Yes -Procedure Performed Yes Yes Yes -Type of Procedure Debridement Debridement Debridement -Clinical Debridement Subcutaneous Subcutaneous Subcutaneous -Post Debridement Size (cm) - Length 3.9 2.5 2.2 -Post Debridement Size (cm) - Width 2.0 0.7 1.3 -Post Debridement Size (cm) - Depth 0.3 0.1 0.1 -Total Square Cm 7.80 1.75 2.86 -Wound/Ulcer Outcome Not Healed Not Healed Not Healed -Ulcer Cleansing Rinsed/ Rinsed/ Rinsed/ Irrigated with Irrigated with Irrigated with Saline Saline Saline -Foul Odor after Cleansing No No No -Bioengineered Tissue No No Yes -Type of bioengineered Tissue EPIFIX EPIFIX -Expiration Date 11/23/21 02/22/22 -Product Lot Number [id number] -Percent Used 100 100 -Saline Lot Number [id number] -Cetacaine [place] No -Bleeding Controlled with Pressure Pressure -Other SALINE LOT # [id number] -Treatment Response Procedure Procedure Procedure Tolerated Well Tolerated Well Tolerated Well #1 right lateral le trauma ulcer -Time 08:47 10:29 10:09 -Correct Patient Yes Yes Yes -Correct Side, Site, Position Yes Yes Yes -Correct Procedure Yes Yes Yes -Procedure Performed Yes Yes Yes -Type of Procedure Debridement Debridement Debridement -Clinical Debridement Subcutaneous Subcutaneous Subcutaneous -Post Debridement Size (cm) - Length 3.1 3.8 4.0 -Post Debridement Size (cm) - Width 0.8 2.0 2.0 -Post Debridement Size (cm) - Depth 0.1 0.3 0.3 -Total Square Cm 2.48 7.60 8.00 -Wound/Ulcer Outcome Not Healed Not Healed Not Healed -Ulcer Cleansing Rinsed/ Rinsed/ Irrigated with Irrigated with Saline Saline -Foul Odor after Cleansing No No No -Bioengineered Tissue No Yes -Type of bioengineered Tissue EPIFIX EPIFIX -Expiration Date 11/23/21 02/22/22 -Product Lot Number [id number] -Percent Used 100 100 -Saline Lot Number [id number] -Cetacaine [place] No -Bleeding Controlled with NA Pressure Pressure -Other SALINE LOT # [id number] -Treatment Response Procedure Procedure Not Tolerated Well Tolerated Well Pain Scale: 0-10 Numeric Is Patient Pain Free? Yes Yes Yes Wound debrided: Right anterior lateral lower leg Laterality: Right Wound Grade/Stage: 2 Type of Debridement: Excisional debridement Anesthesia Used: 4% Lidocaine Solution Depth: in the subcutaneous layer Percentage of wound debrided: 100 Instrument Used: 3mm curette Tissue Removed: Adherent slough, fibrin Severity: Fat Layer Exposed Amount of bleeding with debridement: Mild Bleeding Controlled with: Pressure Patient tolerated procedure well - Additional Wound Wound debrided: Proximal medial right lower leg Laterality: Right Wound Grade/Stage: 2 Type of Debridement: Excisional debridement Anesthesia Used: 4% Lidocaine Solution Depth: in the subcutaneous layer Percentage of wound debrided: 100 Instrument Used: 3mm curette Tissue Removed: Adherent slough, fibrin Severity: Fat Layer Exposed Amount of bleeding with debridement: Mild Bleeding Controlled with: Pressure Patient tolerated procedure: Patient tolerated procedure well Assessment/Plan Active Problems Edema, lower extremity (Acute) Type 2 diabetes mellitus with diabetic polyneuropathy (Acute) Non-pressure chronic ulcer of right lower leg with fat layer exposed (Acute) Assessment: Chronic nonhealing ulcer to right anterior lateral lower leg. DM with neuropathy. PVD. Lower extremity edema. Malnutrition Plan: Patient was again examined and evaluated today. Excisional debridement was performed as noted in the clinical panel. Patient received his second epi fix to lateral and medial ulcers. Ulcer sites were then covered with wound veil, steri strips and dry sterile dressing. Epifix is to stay on for the next week and should not be removed. Patient understands this. No clinical signs of infection appreciated. Patient is already established with a vascular surgeon and has a follow-up appointment with him in [place]. I also recommended to continue high-protein diet to help optimize wound healing. Patient was educated on all signs and symptoms of local and systemic infection and were instructed to go to the ER immediately should he notice any. All other questions were answered to the patient and the patient's satisfaction. Patient will follow-up in clinic in 1 week.
--- NOTE | 2017-05-09 12:45 | PN.PCM_ITS ---
(1) Non-pressure chronic ulcer of right lower leg with fat layer exposed Status: Acute Current Visit: Yes Code(s): L97.912 - Non-pressure chronic ulcer of unspecified part of right lower leg with fat layer exposed (2) Type 2 diabetes mellitus with diabetic polyneuropathy Status: Acute Current Visit: Yes Code(s): E11.42 - Type 2 diabetes mellitus with diabetic polyneuropathy (3) Malnutrition Status: Suspected Current Visit: Yes Code(s): E46 - Unspecified protein- calorie malnutrition (4) Edema, lower extremity Status: Acute Current Visit: Yes Code(s): R60.0 - Localized edema Type of Wound Date of Service: 05/09/17 Chief Complaint: non healing ulcer to right lower leg with fat layer exposed History of Wound: This 82-year-old diabetic male presents to the wound healing center today with for follow up of nonhealing ulcer to the anterior lateral aspect of the right lower leg. Patient states approximately 2-1/2 months ago the corner of the car door caught his leg and tore some skin. The ulcer slowly started to develop and get worse until it got to the state it is now. Denies any purulence or extending reddness surrounding ulcer. Patient finished his antibiotic prescription from Dr. Nicole. He currently denies any feelings of nausea, vomiting, fever, or chills. Progress of Wound: Improving since last week patient completed his arterial brachial studies and it did show that he does have on his venous studies a blockage in the lower right just above the ankle veins. The ulcer shows a decrease in slough and was able to be debrided today. Patient also had a skin tear that developed from the patient taking off tape on the medial aspecit of his proximal right claire. This is slightly improved in appearance from last week as well. Patient was approved for epi fix and will receive #2 today - Physical Exam Vital Signs Temp Pulse Resp BP 97.1 F L 73 18 132/74 H 05/09/17 09:30 05/09/17 09:30 05/09/17 09:30 05/09/17 09:30 General: Alert, Oriented x3, Cooperative, No apparent distress Extremities: Capillary Refill Less than 3 Seconds, No Calf Tenderness - Negative Arslan and Raines sign bilateral, Diminished Peripheral Pulses - DP and PT pulses faintly palpable to the right., Edema - Bilateral lower extremity Skin: Ulcer/ Wound - Chronic nonhealing ulcer noted to the right proximal anterior lateral lower leg. Measurements noted below. Ulcer base is a mixture of granular tissue, adherent slough, fibrin. Increasing granular tissue appreciated from previous weeks. No surrounding cellulitis, no increase in warmth, no purulence, no malodor, no probing to bone, no tracking, no undermining. The skin tear to the proximal medial aspect of the right lower leg is down to subcutaneous tissue. Base is a mixture of granular tissue and adherent slough. No probing, no tracking, no undermining, no malodor, no purulence, and no cellulitis is appreciated. Wound Measurements and Assessment - Nurse 1 - General Ulcer Measurement Start: 04/26/17 08:17 Freq: Status: Active Protocol: Activity Type Activity Date Activity User E-Sign Co-Sign Detail Recorded Client Recorded Date Recorded By Document 05/09/17 09:30 TM [id number] 05/09/17 09:33 TM 05/09/17 09:30 Wound Center Nurse 1 [Ulcer Assessment Protocol: NORA.WD.LOC] #2 RIGHT MEDIAL LE -Combined with other wound No -Current Size (cm) - Length 1.9 -Current Size (cm) - Width 0.9 -Current Size (cm) - Depth 0.1 -Total Square Cm 1.71 -Photo Taken No -Epithelialization Small 1-33% -Tunneling No -Undermining/Tunneling No -Circular Undermining No -Classification - Thickness Full Thickness without Exposed Support Structure -Exudate Amt Small (1-33%) -Exudate Type Serosanguineous -Wound Margin Distinct, Outline Attached -Granulation Amt Large (67-100%) -Granulation Quality Pale [place] -Slough/Fibrin Yes -Necrosis Amt Small (1-33%) -Necrotic Tissue Type Adherent Slough -Structure Exposed Fascia Fat Layer Exposed -Texture (Olamide-wound Skin Appearance) Localized Edema -Moisture (Olamide-wound Skin Appearance Dry/Scaly ) -Color (Olamide-wound Skin Appearance) Erythema Hemosiderin Staining -Temperature (Olamide-wound Skin No Abnormality Appearance) (Pt Warm) -Tenderness on Palpation (Olamide-wound No Skin Appearance) -Ulcer Cleansing Rinsed/ Irrigated with Saline -Foul Odor after Cleansing No -Anesthetic Used 4% Lidocaine Solution #1 right lateral le trauma ulcer -Combined with other wound No -Current Size (cm) - Length 4.0 -Current Size (cm) - Width 1.9 -Current Size (cm) - Depth 0.3 -Total Square Cm 7.60 -Photo Taken No -Epithelialization Medium 34-66% -Tunneling No -Undermining/Tunneling No -Circular Undermining No -Classification - Thickness Full Thickness without Exposed Support Structure -Exudate Amt Medium (34-66%) -Exudate Type Serosanguineous -Wound Margin Distinct, Outline Attached -Granulation Amt Medium (34-66%) -Granulation Quality Pale [place] -Slough/Fibrin Yes -Necrosis Amt Medium (34-66%) -Necrotic Tissue Type Adherent Slough -Structure Exposed Fascia Fat Layer Exposed -Texture (Olamide-wound Skin Appearance) Localized Edema Scarring -Moisture (Olamide-wound Skin Appearance No Abnormality ) -Color (Olamide-wound Skin Appearance) Erythema Hemosiderin Staining -Temperature (Olamide-wound Skin No Abnormality Appearance) (Pt Warm) -Tenderness on Palpation (Olamide-wound No Skin Appearance) -Ulcer Cleansing Rinsed/ Irrigated with Saline -Foul Odor after Cleansing No -Anesthetic Used 4% Lidocaine Solution [Edema Assessment] -Lower Limb Edema Present Yes -Right Calf (cm) 34.5 -Right Ankle (cm) 23.0 WC - Nurse 2 - General Ulcer CM Notes Start: 04/26/17 08:17 Freq: Status: Active Protocol: Activity Type Activity Date Activity User E-Sign Co-Sign Detail Recorded Client Recorded Date Recorded By Document 05/09/17 10:01 MW [id number] 05/09/17 10:13 MW 05/09/17 10:01 Wound Center Nurse 2 [Procedure/Treatment] #2 RIGHT MEDIAL LE -Time 10:08 -Correct Patient Yes -Correct Side, Site, Position Yes -Correct Procedure Yes -Procedure Performed Yes -Type of Procedure Debridement -Clinical Debridement Subcutaneous -Post Debridement Size (cm) - Length 2.2 -Post Debridement Size (cm) - Width 1.3 -Post Debridement Size (cm) - Depth 0.1 -Total Square Cm 2.86 -Wound/Ulcer Outcome Not Healed -Ulcer Cleansing Rinsed/ Irrigated with Saline -Foul Odor after Cleansing No -Bioengineered Tissue Yes -Type of bioengineered Tissue EPIFIX -Expiration Date 02/22/22 -Product Lot Number [id number] -Percent Used 100 -Other SALINE LOT # [id number] -Treatment Response Procedure Tolerated Well #1 right lateral le trauma ulcer -Time 10:09 -Correct Patient Yes -Correct Side, Site, Position Yes -Correct Procedure Yes -Procedure Performed Yes -Type of Procedure Debridement -Clinical Debridement Subcutaneous -Post Debridement Size (cm) - Length 4.0 -Post Debridement Size (cm) - Width 2.0 -Post Debridement Size (cm) - Depth 0.3 -Total Square Cm 8.00 -Wound/Ulcer Outcome Not Healed -Ulcer Cleansing Rinsed/ Irrigated with Saline -Foul Odor after Cleansing No -Bioengineered Tissue Yes -Type of bioengineered Tissue EPIFIX -Expiration Date 02/22/22 -Product Lot Number [id number] -Percent Used 100 -Bleeding Controlled with Pressure -Other SALINE LOT # [id number] -Treatment Response Procedure Not Tolerated Well [See Physician Procedure note for Specifics] Pain Scale: 0-10 Numeric [Pain] -Is Patient Pain Free? Yes Musculoskeletal: Tenderness - Some tenderness appreciated at the ulcer sites. Neurological: - - Epicritic sensation absent bilateral feet Psych/Mental Status: Normal Affect, Appropriate Debridement Note Post-Debridement Measurements/Treatment WC - Nurse 2 - General Ulcer CM Notes Start: 04/26/17 08:17 Freq: Status: Active Protocol: Activity Type Activity Date Activity User E-Sign Co-Sign Detail Recorded Client Recorded Date Recorded By Document 04/26/17 08:46 MW [id number] 04/26/17 08:51 MW Document 05/03/17 10:27 MW [id number] 05/03/17 10:37 MW Document 05/09/17 10:01 MW [id number] 05/09/17 10:13 MW 04/26/17 05/03/17 05/09/17 08:46 10:27 10:01 Wound Center Nurse 2 #2 RIGHT MEDIAL LE -Time 08:47 10:29 10:08 -Correct Patient Yes Yes Yes -Correct Side, Site, Position Yes Yes Yes -Correct Procedure Yes Yes Yes -Procedure Performed Yes Yes Yes -Type of Procedure Debridement Debridement Debridement -Clinical Debridement Subcutaneous Subcutaneous Subcutaneous -Post Debridement Size (cm) - Length 3.9 2.5 2.2 -Post Debridement Size (cm) - Width 2.0 0.7 1.3 -Post Debridement Size (cm) - Depth 0.3 0.1 0.1 -Total Square Cm 7.80 1.75 2.86 -Wound/Ulcer Outcome Not Healed Not Healed Not Healed -Ulcer Cleansing Rinsed/ Rinsed/ Rinsed/ Irrigated with Irrigated with Irrigated with Saline Saline Saline -Foul Odor after Cleansing No No No -Bioengineered Tissue No No Yes -Type of bioengineered Tissue EPIFIX EPIFIX -Expiration Date 11/23/21 02/22/22 -Product Lot Number [id number] -Percent Used 100 100 -Saline Lot Number [id number] -Cetacaine Thompson No -Bleeding Controlled with Pressure Pressure -Other SALINE LOT # [id number] -Treatment Response Procedure Procedure Procedure Tolerated Well Tolerated Well Tolerated Well #1 right lateral le trauma ulcer -Time 08:47 10:29 10:09 -Correct Patient Yes Yes Yes -Correct Side, Site, Position Yes Yes Yes -Correct Procedure Yes Yes Yes -Procedure Performed Yes Yes Yes -Type of Procedure Debridement Debridement Debridement -Clinical Debridement Subcutaneous Subcutaneous Subcutaneous -Post Debridement Size (cm) - Length 3.1 3.8 4.0 -Post Debridement Size (cm) - Width 0.8 2.0 2.0 -Post Debridement Size (cm) - Depth 0.1 0.3 0.3 -Total Square Cm 2.48 7.60 8.00 -Wound/Ulcer Outcome Not Healed Not Healed Not Healed -Ulcer Cleansing Rinsed/ Rinsed/ Irrigated with Irrigated with Saline Saline -Foul Odor after Cleansing No No No -Bioengineered Tissue No Yes -Type of bioengineered Tissue EPIFIX EPIFIX -Expiration Date 11/23/21 02/22/22 -Product Lot Number [id number] -Percent Used 100 100 -Saline Lot Number [id number] -Cetacaine Thompson No -Bleeding Controlled with NA Pressure Pressure -Other SALINE LOT # [id number] -Treatment Response Procedure Procedure Not Tolerated Well Tolerated Well Pain Scale: 0-10 Numeric Is Patient Pain Free? Yes Yes Yes Wound debrided: Right anterior lateral lower leg Laterality: Right Wound Grade/Stage: 2 Type of Debridement: Excisional debridement Anesthesia Used: 4% Lidocaine Solution Depth: in the subcutaneous layer Percentage of wound debrided: 100 Instrument Used: 3mm curette Tissue Removed: Adherent slough, fibrin Severity: Fat Layer Exposed Amount of bleeding with debridement: Mild Bleeding Controlled with: Pressure Patient tolerated procedure well - Additional Wound Wound debrided: Proximal medial right lower leg Laterality: Right Wound Grade/Stage: 2 Type of Debridement: Excisional debridement Anesthesia Used: 4% Lidocaine Solution Depth: in the subcutaneous layer Percentage of wound debrided: 100 Instrument Used: 3mm curette Tissue Removed: Adherent slough, fibrin Severity: Fat Layer Exposed Amount of bleeding with debridement: Mild Bleeding Controlled with: Pressure Patient tolerated procedure: Patient tolerated procedure well Assessment/Plan Active Problems Edema, lower extremity (Acute) Type 2 diabetes mellitus with diabetic polyneuropathy (Acute) Non-pressure chronic ulcer of right lower leg with fat layer exposed (Acute) Assessment: Chronic nonhealing ulcer to right anterior lateral lower leg. DM with neuropathy. PVD. Lower extremity edema. Malnutrition Plan: Patient was again examined and evaluated today. Excisional debridement was performed as noted in the clinical panel. Patient received his second epi fix to lateral and medial ulcers. Ulcer sites were then covered with wound veil , steri strips and dry sterile dressing. Epifix is to stay on for the next week and should not be removed. Patient understands this. No clinical signs of infection appreciated. Patient is already established with a vascular surgeon and has a follow-up appointment with him in [place]. I also recommended to continue high-protein diet to help optimize wound healing. Patient was educated on all signs and symptoms of local and systemic infection and were instructed to go to the ER immediately should he notice any. All other questions were answered to the patient and the patient's satisfaction. Patient will follow-up in clinic in 1 week.
[2017-05-16 09:35] VITALS: BP 115/66; PULSE 74; RESP 20; TEMP 36.6; BMI 32.0
--- NOTE | 2017-05-16 13:54 | PCM.WC.PN ---
(1) Non-pressure chronic ulcer of right lower leg with fat layer exposed Status: Acute Current Visit: Yes Code(s): L97.912 - Non-pressure chronic ulcer of unspecified part of right lower leg with fat layer exposed (2) Type 2 diabetes mellitus with diabetic polyneuropathy Status: Acute Current Visit: Yes Code(s): E11.42 - Type 2 diabetes mellitus with diabetic polyneuropathy (3) Malnutrition Status: Suspected Current Visit: Yes Code(s): E46 - Unspecified protein-calorie malnutrition (4) Edema, lower extremity Status: Acute Current Visit: Yes Code(s): R60.0 - Localized edema Type of Wound Date of Service: 05/16/17 Chief Complaint: non healing ulcer to right lower leg with fat layer exposed History of Wound: This 82-year-old diabetic male presents to the wound healing center today with for follow up of nonhealing ulcer to the anterior lateral aspect of the right lower leg. Patient states approximately 2-1/2 months ago the corner of the car door caught his leg and tore some skin. The ulcer slowly started to develop and get worse until it got to the state it is now. Denies any purulence or extending reddness surrounding ulcer. Patient finished his antibiotic prescription from Dr. Nicole. He currently denies any feelings of nausea, vomiting, fever, or chills. Progress of Wound: Improving since last week. The ulcer shows a decrease in slough and was debrided again today. Patient also had a skin tear that developed from the patient taking off tape on the medial aspecit of his proximal right claire a couple weeks ago. This is improved in appearance from last week as well. Patient was approved for epi fix and will receive #3 today - Physical Exam Vital Signs Temp Pulse Resp BP 97.8 F 74 20 H 115/66 05/16/17 09:35 05/16/17 09:35 05/16/17 09:35 05/16/17 09:35 General: Alert, Oriented x3, Cooperative, No apparent distress Extremities: Capillary Refill Less than 3 Seconds, No Calf Tenderness - Negative Arslan and Raines sign, Edema - Slight lower extremity edema appreciated, Peripheral Pulses Normal - Faintly palpable DP and PT pulses Skin: Ulcer/ Wound - Chronic nonhealing ulcer noted to the right proximal anterior lateral lower leg. Measurements noted below. Ulcer base is a mixture of granular tissue, adherent slough, fibrin. Increasing granular tissue appreciated from last week. No surrounding cellulitis, no increase in warmth, no purulence, no malodor, no probing to bone, no tracking, no undermining. The skin tear to the proximal medial aspect of the right lower leg is down to subcutaneous tissue. Had a scab over the area. Once scab removed, base is a mixture of granular tissue and adherent slough. Base is improved since last week. No probing, no tracking, no undermining, no malodor, no purulence, and no cellulitis is appreciated. Wound Measurements and Assessment WC - Nurse 1 - General Ulcer Measurement Start: 04/26/17 08:17 Freq: Status: Active Protocol: Activity Type Activity Date Activity User E-Sign Co-Sign Detail Recorded Client Recorded Date Recorded By Document 05/16/17 09:35 SKY [id number] 05/16/17 09:57 SKY 05/16/17 09:35 Wound Center Nurse 1 [Ulcer Assessment] #2 RIGHT MEDIAL LE -Combined with other wound No -Current Size (cm) - Length 2.5 -Current Size (cm) - Width 0.7 -Current Size (cm) - Depth 0 -Total Square Cm 1.75 -Date of Last Picture (Recall this 04/26/17 field) -Photo Taken Yes -Epithelialization Large 67-100% -Tunneling No -Undermining/Tunneling No -Circular Undermining No -Classification - Thickness Full Thickness without Exposed Support Structure -Exudate Amt None Present (0 %) -Wound Margin Fibrotic Scar, Thickened Scar -Granulation Amt None Present (0 %) -Granulation Quality N/A -Slough/Fibrin Yes -Necrosis Amt None Present (0 %) -Necrotic Tissue Type Eschar -Structure Exposed Fascia Fat Layer Exposed -Texture (Olamide-wound Skin Appearance) No Abnormality -Moisture (Olamide-wound Skin Appearance Dry/Scaly ) -Color (Olamide-wound Skin Appearance) No Abnormality -Temperature (Olamide-wound Skin No Abnormality Appearance) (Pt Warm) -Ulcer Cleansing Rinsed/ Irrigated with Saline -Foul Odor after Cleansing No -Anesthetic Used 4% Lidocaine Solution #1 right lateral le trauma ulcer -Combined with other wound No -Current Size (cm) - Length 3.7 -Current Size (cm) - Width 2.0 -Current Size (cm) - Depth 0.3 -Total Square Cm 7.40 -Date of Last Picture (Recall this 05/16/17 field) -Photo Taken Yes -Epithelialization Small 1-33% -Tunneling No -Undermining/Tunneling No -Circular Undermining No -Classification - Thickness Full Thickness without Exposed Support Structure -Change in Wound Grade/Stage No Query Text:If change please identify the Stage/Grade in the comment (ie. S2 G3) -Exudate Amt Small (1-33%) -Exudate Type Serosanguineous -Wound Margin Distinct, Outline Attached -Granulation Amt Medium (34-66%) -Granulation Quality Pale [place] -Slough/Fibrin Yes -Necrosis Amt None Present (0 %) -Necrotic Tissue Type Adherent Slough -Structure Exposed Fascia Fat Layer Exposed -Texture (Olamide-wound Skin Appearance) No Abnormality -Moisture (Olamide-wound Skin Appearance Dry/Scaly ) -Color (Olamide-wound Skin Appearance) No Abnormality -Temperature (Olamide-wound Skin No Abnormality Appearance) (Pt Warm) -Tenderness on Palpation (Olamide-wound No Skin Appearance) -Ulcer Cleansing Rinsed/ Irrigated with Saline -Foul Odor after Cleansing No -Anesthetic Used 4% Lidocaine Solution [Edema Assessment] -Lower Limb Edema Present Yes -Right Calf (cm) 36.5 -Right Ankle (cm) 24.5 WC - Nurse 2 - General Ulcer CM Notes Start: 04/26/17 08:17 Freq: Status: Active Protocol: Activity Type Activity Date Activity User E-Sign Co-Sign Detail Recorded Client Recorded Date Recorded By Document 05/16/17 10:22 MW [id number] 05/16/17 10:27 MW 05/16/17 10:22 Wound Center Nurse 2 [Procedure/Treatment] #2 RIGHT MEDIAL LE -Time 10:23 -Correct Patient Yes -Correct Side, Site, Position Yes -Correct Procedure Yes -Procedure Performed Yes -Type of Procedure Debridement -Clinical Debridement Subcutaneous -Post Debridement Size (cm) - Length 2.2 -Post Debridement Size (cm) - Width 2.0 -Post Debridement Size (cm) - Depth 0.1 -Total Square Cm 4.40 -Wound/Ulcer Outcome Not Healed -Ulcer Cleansing Rinsed/ Irrigated with Saline -Foul Odor after Cleansing No -Bioengineered Tissue Yes -Type of bioengineered Tissue EPIFIX -Expiration Date 11/23/21 -Product Lot Number [id number] -Percent Used 100 -Saline Lot Number [id number] -Bleeding Controlled with Pressure -Treatment Response Procedure Tolerated Well #1 right lateral le trauma ulcer -Time 10:25 -Correct Patient Yes -Correct Side, Site, Position Yes -Correct Procedure Yes -Procedure Performed Yes -Type of Procedure Debridement -Clinical Debridement Subcutaneous -Post Debridement Size (cm) - Length 2.6 -Post Debridement Size (cm) - Width 2.0 -Post Debridement Size (cm) - Depth 0.3 -Total Square Cm 5.20 -Wound/Ulcer Outcome Not Healed -Ulcer Cleansing Rinsed/ Irrigated with Saline -Foul Odor after Cleansing No -Bioengineered Tissue Yes -Type of bioengineered Tissue EPIFIX -Expiration Date 11/23/21 -Product Lot Number [id number] -Percent Used 100 -Saline Lot Number [id number] -Bleeding Controlled with Pressure -Treatment Response Procedure Tolerated Well [See Physician Procedure note for Specifics] Pain Scale: 0-10 Numeric [Pain] -Is Patient Pain Free? Yes Musculoskeletal: Tenderness - Tenderness to ulcer sites Neurological: Sensory exam intact to light touch and pain - over ulcer site Psych/Mental Status: Normal Affect, Appropriate Debridement Note Post-Debridement Measurements/Treatment WC - Nurse 2 - General Ulcer CM Notes Start: 04/26/17 08:17 Freq: Status: Active Protocol: Activity Type Activity Date Activity User E-Sign Co-Sign Detail Recorded Client Recorded Date Recorded By Document 04/26/17 08:46 MW [id number] 04/26/17 08:51 MW Document 05/03/17 10:27 MW [id number] 05/03/17 10:37 MW Document 05/09/17 10:01 MW [id number] 05/09/17 10:13 MW Document 05/16/17 10:22 MW [id number] 05/16/17 10:27 MW 04/26/17 05/03/17 05/09/17 08:46 10:27 10:01 Wound Center Nurse 2 #2 RIGHT MEDIAL LE -Time 08:47 10:29 10:08 -Correct Patient Yes Yes Yes -Correct Side, Site, Position Yes Yes Yes -Correct Procedure Yes Yes Yes -Procedure Performed Yes Yes Yes -Type of Procedure Debridement Debridement Debridement -Clinical Debridement Subcutaneous Subcutaneous Subcutaneous -Post Debridement Size (cm) - Length 3.9 2.5 2.2 -Post Debridement Size (cm) - Width 2.0 0.7 1.3 -Post Debridement Size (cm) - Depth 0.3 0.1 0.1 -Total Square Cm 7.80 1.75 2.86 -Wound/Ulcer Outcome Not Healed Not Healed Not Healed -Ulcer Cleansing Rinsed/ Rinsed/ Rinsed/ Irrigated with Irrigated with Irrigated with Saline Saline Saline -Foul Odor after Cleansing No No No -Bioengineered Tissue No No Yes -Type of bioengineered Tissue EPIFIX EPIFIX -Expiration Date 11/23/21 02/22/22 -Product Lot Number [id number] -Percent Used 100 100 -Saline Lot Number [id number] -Cetacaine [place] No -Bleeding Controlled with Pressure Pressure -Other SALINE LOT # [id number] -Treatment Response Procedure Procedure Procedure Tolerated Well Tolerated Well Tolerated Well #1 right lateral le trauma ulcer -Time 08:47 10:29 10:09 -Correct Patient Yes Yes Yes -Correct Side, Site, Position Yes Yes Yes -Correct Procedure Yes Yes Yes -Procedure Performed Yes Yes Yes -Type of Procedure Debridement Debridement Debridement -Clinical Debridement Subcutaneous Subcutaneous Subcutaneous -Post Debridement Size (cm) - Length 3.1 3.8 4.0 -Post Debridement Size (cm) - Width 0.8 2.0 2.0 -Post Debridement Size (cm) - Depth 0.1 0.3 0.3 -Total Square Cm 2.48 7.60 8.00 -Wound/Ulcer Outcome Not Healed Not Healed Not Healed -Ulcer Cleansing Rinsed/ Rinsed/ Irrigated with Irrigated with Saline Saline -Foul Odor after Cleansing No No No -Bioengineered Tissue No Yes -Type of bioengineered Tissue EPIFIX EPIFIX -Expiration Date 11/23/21 02/22/22 -Product Lot Number [id number] -Percent Used 100 100 -Saline Lot Number [id number] -Cetacaine [place] No -Bleeding Controlled with NA Pressure Pressure -Other SALINE LOT # [id number] -Treatment Response Procedure Procedure Not Tolerated Well Tolerated Well Pain Scale: 0-10 Numeric Is Patient Pain Free? Yes Yes Yes 05/16/17 10:22 Wound Center Nurse 2 #2 RIGHT MEDIAL LE -Time 10:23 -Correct Patient Yes -Correct Side, Site, Position Yes -Correct Procedure Yes -Procedure Performed Yes -Type of Procedure Debridement -Clinical Debridement Subcutaneous -Post Debridement Size (cm) - Length 2.2 -Post Debridement Size (cm) - Width 2.0 -Post Debridement Size (cm) - Depth 0.1 -Total Square Cm 4.40 -Wound/Ulcer Outcome Not Healed -Ulcer Cleansing Rinsed/ Irrigated with Saline -Foul Odor after Cleansing No -Bioengineered Tissue Yes -Type of bioengineered Tissue EPIFIX -Expiration Date 11/23/21 -Product Lot Number [id number] -Percent Used 100 -Saline Lot Number [id number] -Cetacaine [place] -Bleeding Controlled with Pressure -Other -Treatment Response Procedure Tolerated Well #1 right lateral le trauma ulcer -Time 10:25 -Correct Patient Yes -Correct Side, Site, Position Yes -Correct Procedure Yes -Procedure Performed Yes -Type of Procedure Debridement -Clinical Debridement Subcutaneous -Post Debridement Size (cm) - Length 2.6 -Post Debridement Size (cm) - Width 2.0 -Post Debridement Size (cm) - Depth 0.3 -Total Square Cm 5.20 -Wound/Ulcer Outcome Not Healed -Ulcer Cleansing Rinsed/ Irrigated with Saline -Foul Odor after Cleansing No -Bioengineered Tissue Yes -Type of bioengineered Tissue EPIFIX -Expiration Date 11/23/21 -Product Lot Number [id number] -Percent Used 100 -Saline Lot Number [id number] -Cetacaine [place] -Bleeding Controlled with Pressure -Other -Treatment Response Procedure Tolerated Well Pain Scale: 0-10 Numeric Is Patient Pain Free? Yes Wound debrided: Right anterior lateral lower leg Laterality: Right Wound Grade/Stage: 2 Type of Debridement: Excisional debridement Anesthesia Used: 4% Lidocaine Solution Depth: in the subcutaneous layer Percentage of wound debrided: 100 Instrument Used: 5mm curette Tissue Removed: adherent slough, fibrin Severity: Fat Layer Exposed Amount of bleeding with debridement: Mild Bleeding Controlled with: Pressure Patient tolerated procedure well - Additional Wound Wound debrided: Proximal medial right lower leg Laterality: Right Wound Grade/Stage: 2 Type of Debridement: Excisional debridement Anesthesia Used: 4% Lidocaine Solution Depth: in the subcutaneous layer Percentage of wound debrided: 100 Instrument Used: 5mm curette Tissue Removed: adherent slough, fibrin Severity: Fat Layer Exposed Amount of bleeding with debridement: Mild Bleeding Controlled with: Pressure Patient tolerated procedure: Patient tolerated procedure well Assessment/Plan Active Problems Edema, lower extremity (Acute) Type 2 diabetes mellitus with diabetic polyneuropathy (Acute) Non-pressure chronic ulcer of right lower leg with fat layer exposed (Acute) Assessment: Chronic nonhealing ulcer to right anterior lateral lower leg. DM with neuropathy. PVD. Lower extremity edema. Malnutrition Plan: Patient was again examined and evaluated today. Excisional debridement was performed as noted in the clinical panel. Patient received his third epi fix to lateral and medial ulcers. Ulcer sites were then covered with wound veil, steri strips and dry sterile dressing. Epifix is to stay on for the next week and should not be removed. Patient understands this. No clinical signs of infection appreciated. Patient is already established with a vascular surgeon and has a follow-up appointment with him in [place]. I also recommended to continue high-protein diet to help optimize wound healing. Patient was educated on all signs and symptoms of local and systemic infection and were instructed to go to the ER immediately should he notice any. All other questions were answered to the patient and the patient's satisfaction. Patient will follow-up in clinic in 1 week.
--- NOTE | 2017-05-16 14:03 | PN.PCM_ITS ---
(1) Non-pressure chronic ulcer of right lower leg with fat layer exposed Status: Acute Current Visit: Yes Code(s): L97.912 - Non-pressure chronic ulcer of unspecified part of right lower leg with fat layer exposed (2) Type 2 diabetes mellitus with diabetic polyneuropathy Status: Acute Current Visit: Yes Code(s): E11.42 - Type 2 diabetes mellitus with diabetic polyneuropathy (3) Malnutrition Status: Suspected Current Visit: Yes Code(s): E46 - Unspecified protein- calorie malnutrition (4) Edema, lower extremity Status: Acute Current Visit: Yes Code(s): R60.0 - Localized edema Type of Wound Date of Service: 05/16/17 Chief Complaint: non healing ulcer to right lower leg with fat layer exposed History of Wound: This 82-year-old diabetic male presents to the wound healing center today with for follow up of nonhealing ulcer to the anterior lateral aspect of the right lower leg. Patient states approximately 2-1/2 months ago the corner of the car door caught his leg and tore some skin. The ulcer slowly started to develop and get worse until it got to the state it is now. Denies any purulence or extending reddness surrounding ulcer. Patient finished his antibiotic prescription from Dr. Nicole. He currently denies any feelings of nausea, vomiting, fever, or chills. Progress of Wound: Improving since last week. The ulcer shows a decrease in slough and was debrided again today. Patient also had a skin tear that developed from the patient taking off tape on the medial aspecit of his proximal right claire a couple weeks ago. This is improved in appearance from last week as well. Patient was approved for epi fix and will receive #3 today - Physical Exam Vital Signs Temp Pulse Resp BP 97.8 F 74 20 H 115/66 05/16/17 09:35 05/16/17 09:35 05/16/17 09:35 05/16/17 09:35 General: Alert, Oriented x3, Cooperative, No apparent distress Extremities: Capillary Refill Less than 3 Seconds, No Calf Tenderness - Negative Arslan and Raines sign, Edema - Slight lower extremity edema appreciated , Peripheral Pulses Normal - Faintly palpable DP and PT pulses Skin: Ulcer/ Wound - Chronic nonhealing ulcer noted to the right proximal anterior lateral lower leg. Measurements noted below. Ulcer base is a mixture of granular tissue, adherent slough, fibrin. Increasing granular tissue appreciated from last week. No surrounding cellulitis, no increase in warmth, no purulence, no malodor, no probing to bone, no tracking, no undermining. The skin tear to the proximal medial aspect of the right lower leg is down to subcutaneous tissue. Had a scab over the area. Once scab removed, base is a mixture of granular tissue and adherent slough. Base is improved since last week. No probing, no tracking, no undermining, no malodor, no purulence, and no cellulitis is appreciated. Wound Measurements and Assessment WC - Nurse 1 - General Ulcer Measurement Start: 04/26/17 08:17 Freq: Status: Active Protocol: Activity Type Activity Date Activity User E-Sign Co-Sign Detail Recorded Client Recorded Date Recorded By Document 05/16/17 09:35 SKY [id number] 05/16/17 09:57 SKY 05/16/17 09:35 Wound Center Nurse 1 [Ulcer Assessment] #2 RIGHT MEDIAL LE -Combined with other wound No -Current Size (cm) - Length 2.5 -Current Size (cm) - Width 0.7 -Current Size (cm) - Depth 0 -Total Square Cm 1.75 -Date of Last Picture (Recall this 04/26/17 field) -Photo Taken Yes -Epithelialization Large 67-100% -Tunneling No -Undermining/Tunneling No -Circular Undermining No -Classification - Thickness Full Thickness without Exposed Support Structure -Exudate Amt None Present (0 %) -Wound Margin Fibrotic Scar, Thickened Scar -Granulation Amt None Present (0 %) -Granulation Quality N/A -Slough/Fibrin Yes -Necrosis Amt None Present (0 %) -Necrotic Tissue Type Eschar -Structure Exposed Fascia Fat Layer Exposed -Texture (Olamide-wound Skin Appearance) No Abnormality -Moisture (Olamide-wound Skin Appearance Dry/Scaly ) -Color (Olamide-wound Skin Appearance) No Abnormality -Temperature (Olamide-wound Skin No Abnormality Appearance) (Pt Warm) -Ulcer Cleansing Rinsed/ Irrigated with Saline -Foul Odor after Cleansing No -Anesthetic Used 4% Lidocaine Solution #1 right lateral le trauma ulcer -Combined with other wound No -Current Size (cm) - Length 3.7 -Current Size (cm) - Width 2.0 -Current Size (cm) - Depth 0.3 -Total Square Cm 7.40 -Date of Last Picture (Recall this 05/16/17 field) -Photo Taken Yes -Epithelialization Small 1-33% -Tunneling No -Undermining/Tunneling No -Circular Undermining No -Classification - Thickness Full Thickness without Exposed Support Structure -Change in Wound Grade/Stage No Query Text:If change please identify the Stage/Grade in the comment (ie. S2 G3) -Exudate Amt Small (1-33%) -Exudate Type Serosanguineous -Wound Margin Distinct, Outline Attached -Granulation Amt Medium (34-66%) -Granulation Quality Pale [place] -Slough/Fibrin Yes -Necrosis Amt None Present (0 %) -Necrotic Tissue Type Adherent Slough -Structure Exposed Fascia Fat Layer Exposed -Texture (Olamide-wound Skin Appearance) No Abnormality -Moisture (Olamide-wound Skin Appearance Dry/Scaly ) -Color (Olamide-wound Skin Appearance) No Abnormality -Temperature (Olamide-wound Skin No Abnormality Appearance) (Pt Warm) -Tenderness on Palpation (Olamide-wound No Skin Appearance) -Ulcer Cleansing Rinsed/ Irrigated with Saline -Foul Odor after Cleansing No -Anesthetic Used 4% Lidocaine Solution [Edema Assessment] -Lower Limb Edema Present Yes -Right Calf (cm) 36.5 -Right Ankle (cm) 24.5 WC - Nurse 2 - General Ulcer CM Notes Start: 04/26/17 08:17 Freq: Status: Active Protocol: Activity Type Activity Date Activity User E-Sign Co-Sign Detail Recorded Client Recorded Date Recorded By Document 05/16/17 10:22 MW [id number] 05/16/17 10:27 MW 05/16/17 10:22 Wound Center Nurse 2 [Procedure/Treatment] #2 RIGHT MEDIAL LE -Time 10:23 -Correct Patient Yes -Correct Side, Site, Position Yes -Correct Procedure Yes -Procedure Performed Yes -Type of Procedure Debridement -Clinical Debridement Subcutaneous -Post Debridement Size (cm) - Length 2.2 -Post Debridement Size (cm) - Width 2.0 -Post Debridement Size (cm) - Depth 0.1 -Total Square Cm 4.40 -Wound/Ulcer Outcome Not Healed -Ulcer Cleansing Rinsed/ Irrigated with Saline -Foul Odor after Cleansing No -Bioengineered Tissue Yes -Type of bioengineered Tissue EPIFIX -Expiration Date 11/23/21 -Product Lot Number [id number] -Percent Used 100 -Saline Lot Number [id number] -Bleeding Controlled with Pressure -Treatment Response Procedure Tolerated Well #1 right lateral le trauma ulcer -Time 10:25 -Correct Patient Yes -Correct Side, Site, Position Yes -Correct Procedure Yes -Procedure Performed Yes -Type of Procedure Debridement -Clinical Debridement Subcutaneous -Post Debridement Size (cm) - Length 2.6 -Post Debridement Size (cm) - Width 2.0 -Post Debridement Size (cm) - Depth 0.3 -Total Square Cm 5.20 -Wound/Ulcer Outcome Not Healed -Ulcer Cleansing Rinsed/ Irrigated with Saline -Foul Odor after Cleansing No -Bioengineered Tissue Yes -Type of bioengineered Tissue EPIFIX -Expiration Date 11/23/21 -Product Lot Number [id number] -Percent Used 100 -Saline Lot Number [id number] -Bleeding Controlled with Pressure -Treatment Response Procedure Tolerated Well [See Physician Procedure note for Specifics] Pain Scale: 0-10 Numeric [Pain] -Is Patient Pain Free? Yes Musculoskeletal: Tenderness - Tenderness to ulcer sites Neurological: Sensory exam intact to light touch and pain - over ulcer site Psych/Mental Status: Normal Affect, Appropriate Debridement Note Post-Debridement Measurements/Treatment WC - Nurse 2 - General Ulcer CM Notes Start: 04/26/17 08:17 Freq: Status: Active Protocol: Activity Type Activity Date Activity User E-Sign Co-Sign Detail Recorded Client Recorded Date Recorded By Document 04/26/17 08:46 MW [id number] 04/26/17 08:51 MW Document 05/03/17 10:27 MW [id number] 05/03/17 10:37 MW Document 05/09/17 10:01 MW [id number] 05/09/17 10:13 MW Document 05/16/17 10:22 MW [id number] 05/16/17 10:27 MW 04/26/17 05/03/17 05/09/17 08:46 10:27 10:01 Wound Center Nurse 2 #2 RIGHT MEDIAL LE -Time 08:47 10:29 10:08 -Correct Patient Yes Yes Yes -Correct Side, Site, Position Yes Yes Yes -Correct Procedure Yes Yes Yes -Procedure Performed Yes Yes Yes -Type of Procedure Debridement Debridement Debridement -Clinical Debridement Subcutaneous Subcutaneous Subcutaneous -Post Debridement Size (cm) - Length 3.9 2.5 2.2 -Post Debridement Size (cm) - Width 2.0 0.7 1.3 -Post Debridement Size (cm) - Depth 0.3 0.1 0.1 -Total Square Cm 7.80 1.75 2.86 -Wound/Ulcer Outcome Not Healed Not Healed Not Healed -Ulcer Cleansing Rinsed/ Rinsed/ Rinsed/ Irrigated with Irrigated with Irrigated with Saline Saline Saline -Foul Odor after Cleansing No No No -Bioengineered Tissue No No Yes -Type of bioengineered Tissue EPIFIX EPIFIX -Expiration Date 11/23/21 02/22/22 -Product Lot Number [id number] -Percent Used 100 100 -Saline Lot Number [id number] -Cetacaine [place] No -Bleeding Controlled with Pressure Pressure -Other SALINE LOT # [id number] -Treatment Response Procedure Procedure Procedure Tolerated Well Tolerated Well Tolerated Well #1 right lateral le trauma ulcer -Time 08:47 10:29 10:09 -Correct Patient Yes Yes Yes -Correct Side, Site, Position Yes Yes Yes -Correct Procedure Yes Yes Yes -Procedure Performed Yes Yes Yes -Type of Procedure Debridement Debridement Debridement -Clinical Debridement Subcutaneous Subcutaneous Subcutaneous -Post Debridement Size (cm) - Length 3.1 3.8 4.0 -Post Debridement Size (cm) - Width 0.8 2.0 2.0 -Post Debridement Size (cm) - Depth 0.1 0.3 0.3 -Total Square Cm 2.48 7.60 8.00 -Wound/Ulcer Outcome Not Healed Not Healed Not Healed -Ulcer Cleansing Rinsed/ Rinsed/ Irrigated with Irrigated with Saline Saline -Foul Odor after Cleansing No No No -Bioengineered Tissue No Yes -Type of bioengineered Tissue EPIFIX EPIFIX -Expiration Date 11/23/21 02/22/22 -Product Lot Number [id number] -Percent Used 100 100 -Saline Lot Number [id number] -Cetacaine [place] No -Bleeding Controlled with NA Pressure Pressure -Other SALINE LOT # [id number] -Treatment Response Procedure Procedure Not Tolerated Well Tolerated Well Pain Scale: 0-10 Numeric Is Patient Pain Free? Yes Yes Yes 05/16/17 10:22 Wound Center Nurse 2 #2 RIGHT MEDIAL LE -Time 10:23 -Correct Patient Yes -Correct Side, Site, Position Yes -Correct Procedure Yes -Procedure Performed Yes -Type of Procedure Debridement -Clinical Debridement Subcutaneous -Post Debridement Size (cm) - Length 2.2 -Post Debridement Size (cm) - Width 2.0 -Post Debridement Size (cm) - Depth 0.1 -Total Square Cm 4.40 -Wound/Ulcer Outcome Not Healed -Ulcer Cleansing Rinsed/ Irrigated with Saline -Foul Odor after Cleansing No -Bioengineered Tissue Yes -Type of bioengineered Tissue EPIFIX -Expiration Date 11/23/21 -Product Lot Number [id number] -Percent Used 100 -Saline Lot Number [id number] -Cetacaine [place] -Bleeding Controlled with Pressure -Other -Treatment Response Procedure Tolerated Well #1 right lateral le trauma ulcer -Time 10:25 -Correct Patient Yes -Correct Side, Site, Position Yes -Correct Procedure Yes -Procedure Performed Yes -Type of Procedure Debridement -Clinical Debridement Subcutaneous -Post Debridement Size (cm) - Length 2.6 -Post Debridement Size (cm) - Width 2.0 -Post Debridement Size (cm) - Depth 0.3 -Total Square Cm 5.20 -Wound/Ulcer Outcome Not Healed -Ulcer Cleansing Rinsed/ Irrigated with Saline -Foul Odor after Cleansing No -Bioengineered Tissue Yes -Type of bioengineered Tissue EPIFIX -Expiration Date 11/23/21 -Product Lot Number [id number] -Percent Used 100 -Saline Lot Number [id number] -Cetacaine [place] -Bleeding Controlled with Pressure -Other -Treatment Response Procedure Tolerated Well Pain Scale: 0-10 Numeric Is Patient Pain Free? Yes Wound debrided: Right anterior lateral lower leg Laterality: Right Wound Grade/Stage: 2 Type of Debridement: Excisional debridement Anesthesia Used: 4% Lidocaine Solution Depth: in the subcutaneous layer Percentage of wound debrided: 100 Instrument Used: 5mm curette Tissue Removed: adherent slough, fibrin Severity: Fat Layer Exposed Amount of bleeding with debridement: Mild Bleeding Controlled with: Pressure Patient tolerated procedure well - Additional Wound Wound debrided: Proximal medial right lower leg Laterality: Right Wound Grade/Stage: 2 Type of Debridement: Excisional debridement Anesthesia Used: 4% Lidocaine Solution Depth: in the subcutaneous layer Percentage of wound debrided: 100 Instrument Used: 5mm curette Tissue Removed: adherent slough, fibrin Severity: Fat Layer Exposed Amount of bleeding with debridement: Mild Bleeding Controlled with: Pressure Patient tolerated procedure: Patient tolerated procedure well Assessment/Plan Active Problems Edema, lower extremity (Acute) Type 2 diabetes mellitus with diabetic polyneuropathy (Acute) Non-pressure chronic ulcer of right lower leg with fat layer exposed (Acute) Assessment: Chronic nonhealing ulcer to right anterior lateral lower leg. DM with neuropathy. PVD. Lower extremity edema. Malnutrition Plan: Patient was again examined and evaluated today. Excisional debridement was performed as noted in the clinical panel. Patient received his third epi fix to lateral and medial ulcers. Ulcer sites were then covered with wound veil , steri strips and dry sterile dressing. Epifix is to stay on for the next week and should not be removed. Patient understands this. No clinical signs of infection appreciated. Patient is already established with a vascular surgeon and has a follow-up appointment with him in [place]. I also recommended to continue high-protein diet to help optimize wound healing. Patient was educated on all signs and symptoms of local and systemic infection and were instructed to go to the ER immediately should he notice any. All other questions were answered to the patient and the patient's satisfaction. Patient will follow-up in clinic in 1 week.
== END 2017-05-22 23:59 ==
LOC: WC 09:30
PROVIDERS: Family Provider Family Medicine; PCP Family Medicine; Visit Provider Podiatrist
DX: E11.622 Type 2 diabetes mellitus with other skin ulcer (principal); E11.42 Type 2 diabetes mellitus with diabetic polyneuropathy; E11.51 Type 2 diabetes mellitus with diabetic peripheral angiopathy without gangrene; L97.812 Non-pressure chronic ulcer of other part of right lower leg with fat layer exposed; R60.0 Localized edema; R09.89 Other specified symptoms and signs involving the circulatory and respiratory systems
CPT/HCPCS: 11042; 15271; Q4131

== ENCOUNTER 2017-06-20 09:00 | Outpatient (RCR) | payer MEDICARE, OTHER, SELFPAY ==
[2017-05-23 00:54] VITALS: BP 149/72; PULSE 74; RESP 20; TEMP 36.6; BMI 32.0
[2017-05-23 08:49] VITALS: BP 144/89; PULSE 81; RESP 18; TEMP 36.2; BMI 32.0
--- NOTE | 2017-05-23 09:49 | PN.PCM_ITS ---
(1) Non-pressure chronic ulcer of right lower leg with fat layer exposed Status: Acute Current Visit: No Code(s): L97.912 - Non-pressure chronic ulcer of unspecified part of right lower leg with fat layer exposed (2) Type 2 diabetes mellitus with diabetic polyneuropathy Status: Acute Current Visit: No Code(s): E11.42 - Type 2 diabetes mellitus with diabetic polyneuropathy (3) Malnutrition Status: Suspected Current Visit: No Code(s): E46 - Unspecified protein- calorie malnutrition (4) Edema, lower extremity Status: Acute Current Visit: No Code(s): R60.0 - Localized edema Type of Wound Date of Service: 05/23/17 Chief Complaint: non healing ulcer to right lower leg with fat layer exposed History of Wound: This 82-year-old diabetic male presents to the wound healing center today with for follow up of nonhealing ulcer to the anterior lateral aspect of the right lower leg. Patient states approximately 2-1/2 months ago the corner of the car door caught his leg and tore some skin. The ulcer slowly started to develop and get worse until it got to the state it is now. Denies any purulence or extending reddness surrounding ulcer. Patient finished his antibiotic prescription from Dr. Nicole. He currently denies any feelings of nausea, vomiting, fever, or chills. Progress of Wound: Ulcer still showing improvement since last week. The ulcer shows a decrease in slough and was debrided again today. Patient also had a skin tear that developed from the patient taking off tape on the medial aspecit of his proximal right claire a couple weeks ago. This is improved in appearance from last week as well and is almost healed. Patient was approved for epi fix and will receive #4 today - Physical Exam Vital Signs Temp Pulse Resp BP 97.1 F L 81 18 144/89 H 05/23/17 08:49 05/23/17 08:49 05/23/17 08:49 05/23/17 08:49 General: Alert, Oriented x3, Cooperative, No apparent distress Extremities: Capillary Refill Less than 3 Seconds, No Calf Tenderness - Negative Arslan and Raines sign, Diminished Peripheral Pulses - Faintly palpable DP and PT pulses, Edema - Slight lower extremity edema appreciated Skin: Ulcer/ Wound - Chronic nonhealing ulcer noted to the right proximal anterior lateral lower leg measurements are noted below. Ulcer base is a mixture of granular tissue, adherent slough, fibrin, and hyperkeratotic rim. Also bases a majority granular tissue. There is no surrounding cellulitis. No increase in warmth. No purulence. No malodor. No probing. No tracking. No undermining. The aforementioned skin tear to the proximal medial aspect of the right lower leg is down to the subcutaneous tissue and is fairly superficial at this point. Scant amount of adherent slough as well as a granular base appreciated. I anticipate this to be healed within the next 1-2 visits. Wound Measurements and Assessment WC - Nurse 1 - General Ulcer Measurement Start: 05/23/17 08:49 Freq: Status: Active Protocol: Activity Type Activity Date Activity User E-Sign Co-Sign Detail Recorded Client Recorded Date Recorded By Document 05/23/17 08:49 [id number] 05/23/17 08:53 05/23/17 08:49 Wound Center Nurse 1 [Ulcer Assessment] #2 RIGHT MEDIAL LE -Combined with other wound No -Current Size (cm) - Length 1.1 -Current Size (cm) - Width 0.3 -Current Size (cm) - Depth 0.1 -Total Square Cm 0.33 -Photo Taken No -Epithelialization Small 1-33% -Tunneling No -Undermining/Tunneling No -Circular Undermining No -Classification - Thickness Full Thickness without Exposed Support Structure -Exudate Amt Small (1-33%) -Exudate Type Serosanguineous -Wound Margin Distinct, Outline Attached -Granulation Amt Large (67-100%) -Granulation Quality Red -Slough/Fibrin Yes -Necrosis Amt Small (1-33%) -Necrotic Tissue Type Adherent Slough -Structure Exposed Fascia Fat Layer Exposed -Texture (Olamide-wound Skin Appearance) No Abnormality -Moisture (Olamide-wound Skin Appearance Dry/Scaly ) -Color (Olamide-wound Skin Appearance) Erythema -Temperature (Olamide-wound Skin No Abnormality Appearance) (Pt Warm) -Tenderness on Palpation (Olamide-wound No Skin Appearance) -Ulcer Cleansing Rinsed/ Irrigated with Saline -Foul Odor after Cleansing No -Anesthetic Used 4% Lidocaine Solution #1 right lateral le trauma ulcer -Combined with other wound No -Current Size (cm) - Length 3.1 -Current Size (cm) - Width 1.8 -Current Size (cm) - Depth 0.2 -Total Square Cm 5.58 -Photo Taken No -Epithelialization Small 1-33% -Tunneling No -Undermining/Tunneling No -Circular Undermining No -Classification - Thickness Full Thickness without Exposed Support Structure -Exudate Amt Small (1-33%) -Exudate Type Serosanguineous -Wound Margin Fibrotic Scar, Thickened Scar -Granulation Amt Medium (34-66%) -Granulation Quality [place] -Slough/Fibrin Yes -Necrosis Amt Medium (34-66%) -Necrotic Tissue Type Adherent Slough -Structure Exposed Fascia Fat Layer Exposed -Texture (Olamide-wound Skin Appearance) Localized Edema Scarring -Moisture (Olamide-wound Skin Appearance Dry/Scaly ) -Color (Olamide-wound Skin Appearance) Erythema Hemosiderin Staining -Temperature (Olamide-wound Skin No Abnormality Appearance) (Pt Warm) -Tenderness on Palpation (Olamide-wound No Skin Appearance) -Ulcer Cleansing Rinsed/ Irrigated with Saline -Foul Odor after Cleansing No -Anesthetic Used 4% Lidocaine Solution [Edema Assessment] -Lower Limb Edema Present Yes -Right Calf (cm) 34.5 -Right Ankle (cm) 24.5 WC - Nurse 2 - General Ulcer CM Notes Start: 05/23/17 08:49 Freq: Status: Active Protocol: Activity Type Activity Date Activity User E-Sign Co-Sign Detail Recorded Client Recorded Date Recorded By Document 05/23/17 09:07 MW [id number] 05/23/17 09:18 MW 05/23/17 09:07 Wound Center Nurse 2 [Procedure/Treatment] #2 RIGHT MEDIAL LE -Time 09:07 -Correct Patient Yes -Correct Side, Site, Position Yes -Correct Procedure Yes -Procedure Performed Yes -Type of Procedure Debridement -Clinical Debridement Subcutaneous -Post Debridement Size (cm) - Length 1.8 -Post Debridement Size (cm) - Width 0.8 -Post Debridement Size (cm) - Depth 0.1 -Total Square Cm 1.44 -Wound/Ulcer Outcome Not Healed -Ulcer Cleansing Rinsed/ Irrigated with Saline -Foul Odor after Cleansing No -Bioengineered Tissue No -Type of bioengineered Tissue EPIFIX -Bleeding Controlled with Pressure -Treatment Response Procedure Tolerated Well #1 right lateral le trauma ulcer -Time 09:07 -Correct Patient Yes -Correct Side, Site, Position Yes -Correct Procedure Yes -Procedure Performed Yes -Type of Procedure Debridement -Clinical Debridement Subcutaneous -Post Debridement Size (cm) - Length 3.8 -Post Debridement Size (cm) - Width 1.7 -Post Debridement Size (cm) - Depth 0.3 -Total Square Cm 6.46 -Wound/Ulcer Outcome Not Healed -Ulcer Cleansing Rinsed/ Irrigated with Saline -Foul Odor after Cleansing No -Type of bioengineered Tissue EPIFIX -Bleeding Controlled with Pressure -Treatment Response Procedure Tolerated Well [See Physician Procedure note for Specifics] Pain Scale: 0-10 Numeric [Pain] -Is Patient Pain Free? Yes Musculoskeletal: - - Slight tenderness appreciated to ulcer sites especially the base of the ulcers. Neurological: Sensory exam intact to light touch and pain Psych/Mental Status: Normal Affect, Appropriate Debridement Note Post-Debridement Measurements/Treatment WC - Nurse 2 - General Ulcer CM Notes Start: 05/23/17 08:49 Freq: Status: Active Protocol: Activity Type Activity Date Activity User E-Sign Co-Sign Detail Recorded Client Recorded Date Recorded By Document 05/23/17 09:07 MW [id number] 05/23/17 09:18 MW 05/23/17 09:07 Wound Center Nurse 2 #2 RIGHT MEDIAL LE -Time 09:07 -Correct Patient Yes -Correct Side, Site, Position Yes -Correct Procedure Yes -Procedure Performed Yes -Type of Procedure Debridement -Clinical Debridement Subcutaneous -Post Debridement Size (cm) - Length 1.8 -Post Debridement Size (cm) - Width 0.8 -Post Debridement Size (cm) - Depth 0.1 -Total Square Cm 1.44 -Wound/Ulcer Outcome Not Healed -Ulcer Cleansing Rinsed/ Irrigated with Saline -Foul Odor after Cleansing No -Bioengineered Tissue No -Type of bioengineered Tissue EPIFIX -Bleeding Controlled with Pressure -Treatment Response Procedure Tolerated Well #1 right lateral le trauma ulcer -Time 09:07 -Correct Patient Yes -Correct Side, Site, Position Yes -Correct Procedure Yes -Procedure Performed Yes -Type of Procedure Debridement -Clinical Debridement Subcutaneous -Post Debridement Size (cm) - Length 3.8 -Post Debridement Size (cm) - Width 1.7 -Post Debridement Size (cm) - Depth 0.3 -Total Square Cm 6.46 -Wound/Ulcer Outcome Not Healed -Ulcer Cleansing Rinsed/ Irrigated with Saline -Foul Odor after Cleansing No -Type of bioengineered Tissue EPIFIX -Bleeding Controlled with Pressure -Treatment Response Procedure Tolerated Well Pain Scale: 0-10 Numeric Is Patient Pain Free? Yes Wound debrided: Right anterior lateral lower leg Laterality: Right Wound Grade/Stage: 2 Type of Debridement: Excisional debridement Anesthesia Used: 4% Lidocaine Solution Depth: in the subcutaneous layer Percentage of wound debrided: 100 Instrument Used: 5mm curette Tissue Removed: Adherent slough, fibrin, hyperkeratotic rim Severity: Fat Layer Exposed Amount of bleeding with debridement: Mild Bleeding Controlled with: Pressure Patient tolerated procedure well - Additional Wound Wound debrided: Proximal medial right lower leg Laterality: Right Wound Grade/Stage: 2 Type of Debridement: Excisional debridement Anesthesia Used: 4% Lidocaine Solution Depth: in the subcutaneous layer Percentage of wound debrided: 100 Instrument Used: 5mm curette Tissue Removed: Adherent slough, fibrin Severity: Limited To Skin Breakdown Amount of bleeding with debridement: Mild Bleeding Controlled with: Pressure Patient tolerated procedure: Patient tolerated procedure well Assessment/Plan Assessment: Chronic nonhealing ulcer to right anterior lateral lower leg. DM with neuropathy. PVD. Lower extremity edema. Malnutrition Plan: Patient was again examined and evaluated today. Excisional debridement was performed as noted in the clinical panel. Patient received his fourth epi fix to lateral and medial ulcers. Ulcer sites were then covered with wound veil , steri strips and dry sterile dressing. Epifix is to stay on for the next week and should not be removed. Patient understands this. No clinical signs of infection appreciated. Patient is already established with a vascular surgeon and has a follow-up appointment with him in [place]. I also recommended to continue high-protein diet to help optimize wound healing. Patient was educated on all signs and symptoms of local and systemic infection and were instructed to go to the ER immediately should he notice any. All other questions were answered to the patient and the patient's satisfaction. Patient will follow-up in clinic in 1 week for further evaluation.
[2017-05-30 10:04] VITALS: BP 124/77; PULSE 73; RESP 18; TEMP 36.8; BMI 32.0
--- NOTE | 2017-05-30 15:29 | PCM.WC.PN ---
(1) Non-pressure chronic ulcer of right lower leg with fat layer exposed Status: Acute Current Visit: No Code(s): L97.912 - Non-pressure chronic ulcer of unspecified part of right lower leg with fat layer exposed (2) Type 2 diabetes mellitus with diabetic polyneuropathy Status: Acute Current Visit: No Code(s): E11.42 - Type 2 diabetes mellitus with diabetic polyneuropathy (3) Malnutrition Status: Suspected Current Visit: No Code(s): E46 - Unspecified protein-calorie malnutrition (4) Edema, lower extremity Status: Acute Current Visit: No Code(s): R60.0 - Localized edema Type of Wound Date of Service: 05/30/17 Chief Complaint: non healing ulcer to right lower leg with fat layer exposed History of Wound: This 82-year-old diabetic male presents to the wound healing center today with for follow up of nonhealing ulcer to the anterior lateral aspect of the right lower leg. Patient states approximately 2-1/2 months ago the corner of the car door caught his leg and tore some skin. The ulcer slowly started to develop and get worse until it got to the state it is now. Denies any purulence or extending reddness surrounding ulcer. Patient finished his antibiotic prescription from Dr. Nicole. He currently denies any feelings of nausea, vomiting, fever, or chills. Progress of Wound: Ulcer continues to show improvement since last week. The ulcer shows a decrease in slough and was debrided again today. Ulcer to medial aspect that was treated as a skin tear is healed this week. Patient was approved for epi fix and will receive #5 today - Physical Exam Vital Signs Temp Pulse Resp BP 98.2 F 73 18 124/77 H 05/30/17 10:04 05/30/17 10:04 05/30/17 10:04 05/30/17 10:04 General: Alert, Oriented x3, Cooperative, No apparent distress Extremities: Capillary Refill Less than 3 Seconds, No Calf Tenderness - negative salas and rosales sign, Diminished Peripheral Pulses - Faintly palpable DP and PT pulses, Edema - slight lower extremity edema Skin: Ulcer/ Wound - Chronic nonhealing ulcer noted to the right proximal anterior lateral lower leg measurements are noted below. Ulcer base is a mixture of granular tissue, adherent slough, fibrin, and hyperkeratotic rim. Also bases a majority granular tissue. There is no surrounding cellulitis. No increase in warmth. No purulence. No malodor. No probing. No tracking. No undermining. Wound Measurements and Assessment WC - Nurse 1 - General Ulcer Measurement Start: 05/23/17 08:49 Freq: Status: Active Protocol: Activity Type Activity Date Activity User E-Sign Co-Sign Detail Recorded Client Recorded Date Recorded By Document 05/30/17 10:04 [id number] 05/30/17 10:08 05/30/17 10:04 Wound Center Nurse 1 [Ulcer Assessment] #2 RIGHT MEDIAL LE -Combined with other wound No -Current Size (cm) - Length 0 -Current Size (cm) - Width 0 -Current Size (cm) - Depth 0 -Total Square Cm 0 -Date of Last Picture (Recall this 05/30/17 field) -Photo Taken Yes -Epithelialization Large 67-100% -Tunneling No -Undermining/Tunneling No -Circular Undermining No -Classification - Thickness Full Thickness without Exposed Support Structure -Exudate Amt None Present (0 %) -Wound Margin Distinct, Outline Attached -Granulation Amt Large (67-100%) -Granulation Quality [place] -Slough/Fibrin No -Necrosis Amt None Present (0 %) -Structure Exposed None/Limited to Skin Breakdown -Texture (Olamide-wound Skin Appearance) Localized Edema Scarring -Moisture (Olamide-wound Skin Appearance No Abnormality ) -Color (Olamide-wound Skin Appearance) Hemosiderin Staining -Temperature (Olamide-wound Skin No Abnormality Appearance) (Pt Warm) -Tenderness on Palpation (Olamide-wound No Skin Appearance) -Ulcer Cleansing Rinsed/ Irrigated with Saline -Foul Odor after Cleansing No #1 right lateral le trauma ulcer -Combined with other wound No -Current Size (cm) - Length 2.9 -Current Size (cm) - Width 1.5 -Current Size (cm) - Depth 0.2 -Total Square Cm 4.35 -Photo Taken No -Epithelialization Small 1-33% -Tunneling No -Undermining/Tunneling No -Circular Undermining No -Classification - Thickness Full Thickness without Exposed Support Structure -Exudate Amt Small (1-33%) -Exudate Type Serosanguineous -Wound Margin Distinct, Outline Attached -Granulation Amt Medium (34-66%) -Granulation Quality [place] -Slough/Fibrin Yes -Necrosis Amt Medium (34-66%) -Necrotic Tissue Type Adherent Slough -Structure Exposed Fascia Fat Layer Exposed -Texture (Olamide-wound Skin Appearance) Localized Edema Scarring -Moisture (Olamide-wound Skin Appearance No Abnormality ) -Color (Olamide-wound Skin Appearance) Erythema Hemosiderin Staining -Temperature (Olamide-wound Skin No Abnormality Appearance) (Pt Warm) -Tenderness on Palpation (Olamide-wound No Skin Appearance) -Ulcer Cleansing Rinsed/ Irrigated with Saline -Foul Odor after Cleansing No -Anesthetic Used 4% Lidocaine Solution [Edema Assessment] -Lower Limb Edema Present Yes -Right Calf (cm) 33.0 -Right Ankle (cm) 24.0 - Nurse 2 - General Ulcer CM Notes Start: 05/23/17 08:49 Freq: Status: Active Protocol: Activity Type Activity Date Activity User E-Sign Co-Sign Detail Recorded Client Recorded Date Recorded By Document 05/30/17 10:28 MW [id number] 05/30/17 10:32 MW 05/30/17 10:28 Wound Center Nurse 2 [Procedure/Treatment] #1 right lateral le trauma ulcer -Time 10:29 -Correct Patient Yes -Correct Side, Site, Position Yes -Correct Procedure Yes -Procedure Performed Yes -Type of Procedure Debridement -Clinical Debridement Subcutaneous -Post Debridement Size (cm) - Length 2.7 -Post Debridement Size (cm) - Width 1.5 -Post Debridement Size (cm) - Depth 0.3 -Total Square Cm 4.05 -Wound/Ulcer Outcome Not Healed -Ulcer Cleansing Not Cleansed -Foul Odor after Cleansing No -Bioengineered Tissue Yes -Type of bioengineered Tissue EPIFIX -Expiration Date 02/22/22 -Product Lot Number [id number] -Percent Used 100 -Saline Lot Number [id number] -Bleeding Controlled with Pressure -Treatment Response Procedure Tolerated Well [See Physician Procedure note for Specifics] Pain Scale: 0-10 Numeric [Pain] -Is Patient Pain Free? Yes Musculoskeletal: Tenderness - to the ulcer site Neurological: Sensory exam intact to light touch and pain Psych/Mental Status: Normal Affect, Appropriate Debridement Note Post-Debridement Measurements/Treatment - Nurse 2 - General Ulcer CM Notes Start: 05/23/17 08:49 Freq: Status: Active Protocol: Activity Type Activity Date Activity User E-Sign Co-Sign Detail Recorded Client Recorded Date Recorded By Document 05/23/17 09:07 MW [id number] 05/23/17 09:18 MW Document 05/30/17 10:28 MW [id number] 05/30/17 10:32 MW 05/23/17 05/30/17 09:07 10:28 Wound Center Nurse 2 #2 RIGHT MEDIAL LE -Time 09:07 -Correct Patient Yes -Correct Side, Site, Position Yes -Correct Procedure Yes -Procedure Performed Yes -Type of Procedure Debridement -Clinical Debridement Subcutaneous -Post Debridement Size (cm) - Length 1.8 -Post Debridement Size (cm) - Width 0.8 -Post Debridement Size (cm) - Depth 0.1 -Total Square Cm 1.44 -Wound/Ulcer Outcome Not Healed -Ulcer Cleansing Rinsed/ Irrigated with Saline -Foul Odor after Cleansing No -Bioengineered Tissue No -Type of bioengineered Tissue EPIFIX -Bleeding Controlled with Pressure -Treatment Response Procedure Tolerated Well #1 right lateral le trauma ulcer -Time 09:07 10:29 -Correct Patient Yes Yes -Correct Side, Site, Position Yes Yes -Correct Procedure Yes Yes -Procedure Performed Yes Yes -Type of Procedure Debridement Debridement -Clinical Debridement Subcutaneous Subcutaneous -Post Debridement Size (cm) - Length 3.8 2.7 -Post Debridement Size (cm) - Width 1.7 1.5 -Post Debridement Size (cm) - Depth 0.3 0.3 -Total Square Cm 6.46 4.05 -Wound/Ulcer Outcome Not Healed Not Healed -Ulcer Cleansing Rinsed/ Not Cleansed Irrigated with Saline -Foul Odor after Cleansing No No -Bioengineered Tissue Yes -Type of bioengineered Tissue EPIFIX EPIFIX -Expiration Date 02/22/22 -Product Lot Number [id number] -Percent Used 100 -Saline Lot Number [id number] -Bleeding Controlled with Pressure Pressure -Treatment Response Procedure Procedure Tolerated Well Tolerated Well Pain Scale: 0-10 Numeric Is Patient Pain Free? Yes Yes Wound debrided: Right anterior lateral lower leg Laterality: Right Wound Grade/Stage: 2 Anesthesia Used: 4% Lidocaine Solution Depth: in the subcutaneous layer Percentage of wound debrided: 100 Instrument Used: 5mm curette Tissue Removed: Adherent slough, fibrin, hyperkeratotic rim Severity: Fat Layer Exposed Amount of bleeding with debridement: Mild Bleeding Controlled with: Pressure Patient tolerated procedure well Assessment/Plan Assessment: Chronic nonhealing ulcer to right anterior lateral lower leg. DM with neuropathy. PVD. Lower extremity edema. Malnutrition Plan: Patient was again examined and evaluated today. Debridement was performed as noted in the clinical panel. Patient received his fifth epi fix to the ulcer site. Ulcer site was then covered with wound veil, steri strips and dry sterile dressing. Epifix is to stay on for the next week and should not be removed. Patient understands this. No clinical signs of infection appreciated. Patient is already established with a vascular surgeon and has a follow-up appointment with him in [place]. I also recommended to continue high-protein diet to help optimize wound healing. Patient was educated on all signs and symptoms of local and systemic infection and were instructed to go to the ER immediately should he notice any. All other questions were answered to the patient and the patient's satisfaction. Patient will follow-up in clinic in 1 week for further evaluation.
--- NOTE | 2017-05-30 15:36 | PN.PCM_ITS ---
(1) Non-pressure chronic ulcer of right lower leg with fat layer exposed Status: Acute Current Visit: No Code(s): L97.912 - Non-pressure chronic ulcer of unspecified part of right lower leg with fat layer exposed (2) Type 2 diabetes mellitus with diabetic polyneuropathy Status: Acute Current Visit: No Code(s): E11.42 - Type 2 diabetes mellitus with diabetic polyneuropathy (3) Malnutrition Status: Suspected Current Visit: No Code(s): E46 - Unspecified protein- calorie malnutrition (4) Edema, lower extremity Status: Acute Current Visit: No Code(s): R60.0 - Localized edema Type of Wound Date of Service: 05/30/17 Chief Complaint: non healing ulcer to right lower leg with fat layer exposed History of Wound: This 82-year-old diabetic male presents to the wound healing center today with for follow up of nonhealing ulcer to the anterior lateral aspect of the right lower leg. Patient states approximately 2-1/2 months ago the corner of the car door caught his leg and tore some skin. The ulcer slowly started to develop and get worse until it got to the state it is now. Denies any purulence or extending reddness surrounding ulcer. Patient finished his antibiotic prescription from Dr. Nicole. He currently denies any feelings of nausea, vomiting, fever, or chills. Progress of Wound: Ulcer continues to show improvement since last week. The ulcer shows a decrease in slough and was debrided again today. Ulcer to medial aspect that was treated as a skin tear is healed this week. Patient was approved for epi fix and will receive #5 today - Physical Exam Vital Signs Temp Pulse Resp BP 98.2 F 73 18 124/77 H 05/30/17 10:04 05/30/17 10:04 05/30/17 10:04 05/30/17 10:04 General: Alert, Oriented x3, Cooperative, No apparent distress Extremities: Capillary Refill Less than 3 Seconds, No Calf Tenderness - negative salas and rosales sign, Diminished Peripheral Pulses - Faintly palpable DP and PT pulses, Edema - slight lower extremity edema Skin: Ulcer/ Wound - Chronic nonhealing ulcer noted to the right proximal anterior lateral lower leg measurements are noted below. Ulcer base is a mixture of granular tissue, adherent slough, fibrin, and hyperkeratotic rim. Also bases a majority granular tissue. There is no surrounding cellulitis. No increase in warmth. No purulence. No malodor. No probing. No tracking. No undermining. Wound Measurements and Assessment WC - Nurse 1 - General Ulcer Measurement Start: 05/23/17 08:49 Freq: Status: Active Protocol: Activity Type Activity Date Activity User E-Sign Co-Sign Detail Recorded Client Recorded Date Recorded By Document 05/30/17 10:04 [id number] 05/30/17 10:08 05/30/17 10:04 Wound Center Nurse 1 [Ulcer Assessment] #2 RIGHT MEDIAL LE -Combined with other wound No -Current Size (cm) - Length 0 -Current Size (cm) - Width 0 -Current Size (cm) - Depth 0 -Total Square Cm 0 -Date of Last Picture (Recall this 05/30/17 field) -Photo Taken Yes -Epithelialization Large 67-100% -Tunneling No -Undermining/Tunneling No -Circular Undermining No -Classification - Thickness Full Thickness without Exposed Support Structure -Exudate Amt None Present (0 %) -Wound Margin Distinct, Outline Attached -Granulation Amt Large (67-100%) -Granulation Quality [place] -Slough/Fibrin No -Necrosis Amt None Present (0 %) -Structure Exposed None/Limited to Skin Breakdown -Texture (Olamide-wound Skin Appearance) Localized Edema Scarring -Moisture (Olamide-wound Skin Appearance No Abnormality ) -Color (Olamide-wound Skin Appearance) Hemosiderin Staining -Temperature (Olamide-wound Skin No Abnormality Appearance) (Pt Warm) -Tenderness on Palpation (Oalmide-wound No Skin Appearance) -Ulcer Cleansing Rinsed/ Irrigated with Saline -Foul Odor after Cleansing No #1 right lateral le trauma ulcer -Combined with other wound No -Current Size (cm) - Length 2.9 -Current Size (cm) - Width 1.5 -Current Size (cm) - Depth 0.2 -Total Square Cm 4.35 -Photo Taken No -Epithelialization Small 1-33% -Tunneling No -Undermining/Tunneling No -Circular Undermining No -Classification - Thickness Full Thickness without Exposed Support Structure -Exudate Amt Small (1-33%) -Exudate Type Serosanguineous -Wound Margin Distinct, Outline Attached -Granulation Amt Medium (34-66%) -Granulation Quality [place] -Slough/Fibrin Yes -Necrosis Amt Medium (34-66%) -Necrotic Tissue Type Adherent Slough -Structure Exposed Fascia Fat Layer Exposed -Texture (Olamide-wound Skin Appearance) Localized Edema Scarring -Moisture (Olamide-wound Skin Appearance No Abnormality ) -Color ([place]-wound Skin Appearance) Erythema Hemosiderin Staining -Temperature (Olamide-wound Skin No Abnormality Appearance) (Pt Warm) -Tenderness on Palpation (Olamide-wound No Skin Appearance) -Ulcer Cleansing Rinsed/ Irrigated with Saline -Foul Odor after Cleansing No -Anesthetic Used 4% Lidocaine Solution [Edema Assessment] -Lower Limb Edema Present Yes -Right Calf (cm) 33.0 -Right Ankle (cm) 24.0 - Nurse 2 - General Ulcer CM Notes Start: 05/23/17 08:49 Freq: Status: Active Protocol: Activity Type Activity Date Activity User E-Sign Co-Sign Detail Recorded Client Recorded Date Recorded By Document 05/30/17 10:28 MW [id number] 05/30/17 10:32 MW 05/30/17 10:28 Wound Center Nurse 2 [Procedure/Treatment] #1 right lateral le trauma ulcer -Time 10:29 -Correct Patient Yes -Correct Side, Site, Position Yes -Correct Procedure Yes -Procedure Performed Yes -Type of Procedure Debridement -Clinical Debridement Subcutaneous -Post Debridement Size (cm) - Length 2.7 -Post Debridement Size (cm) - Width 1.5 -Post Debridement Size (cm) - Depth 0.3 -Total Square Cm 4.05 -Wound/Ulcer Outcome Not Healed -Ulcer Cleansing Not Cleansed -Foul Odor after Cleansing No -Bioengineered Tissue Yes -Type of bioengineered Tissue EPIFIX -Expiration Date 02/22/22 -Product Lot Number [id number] -Percent Used 100 -Saline Lot Number [id number] -Bleeding Controlled with Pressure -Treatment Response Procedure Tolerated Well [See Physician Procedure note for Specifics] Pain Scale: 0-10 Numeric [Pain] -Is Patient Pain Free? Yes Musculoskeletal: Tenderness - to the ulcer site Neurological: Sensory exam intact to light touch and pain Psych/Mental Status: Normal Affect, Appropriate Debridement Note Post-Debridement Measurements/Treatment - Nurse 2 - General Ulcer CM Notes Start: 05/23/17 08:49 Freq: Status: Active Protocol: Activity Type Activity Date Activity User E-Sign Co-Sign Detail Recorded Client Recorded Date Recorded By Document 05/23/17 09:07 MW [id number] 05/23/17 09:18 MW Document 05/30/17 10:28 MW [id number] 05/30/17 10:32 MW 05/23/17 05/30/17 09:07 10:28 Wound Center Nurse 2 #2 RIGHT MEDIAL LE -Time 09:07 -Correct Patient Yes -Correct Side, Site, Position Yes -Correct Procedure Yes -Procedure Performed Yes -Type of Procedure Debridement -Clinical Debridement Subcutaneous -Post Debridement Size (cm) - Length 1.8 -Post Debridement Size (cm) - Width 0.8 -Post Debridement Size (cm) - Depth 0.1 -Total Square Cm 1.44 -Wound/Ulcer Outcome Not Healed -Ulcer Cleansing Rinsed/ Irrigated with Saline -Foul Odor after Cleansing No -Bioengineered Tissue No -Type of bioengineered Tissue EPIFIX -Bleeding Controlled with Pressure -Treatment Response Procedure Tolerated Well #1 right lateral le trauma ulcer -Time 09:07 10:29 -Correct Patient Yes Yes -Correct Side, Site, Position Yes Yes -Correct Procedure Yes Yes -Procedure Performed Yes Yes -Type of Procedure Debridement Debridement -Clinical Debridement Subcutaneous Subcutaneous -Post Debridement Size (cm) - Length 3.8 2.7 -Post Debridement Size (cm) - Width 1.7 1.5 -Post Debridement Size (cm) - Depth 0.3 0.3 -Total Square Cm 6.46 4.05 -Wound/Ulcer Outcome Not Healed Not Healed -Ulcer Cleansing Rinsed/ Not Cleansed Irrigated with Saline -Foul Odor after Cleansing No No -Bioengineered Tissue Yes -Type of bioengineered Tissue EPIFIX EPIFIX -Expiration Date 02/22/22 -Product Lot Number [id number] -Percent Used 100 -Saline Lot Number [id number] -Bleeding Controlled with Pressure Pressure -Treatment Response Procedure Procedure Tolerated Well Tolerated Well Pain Scale: 0-10 Numeric Is Patient Pain Free? Yes Yes Wound debrided: Right anterior lateral lower leg Laterality: Right Wound Grade/Stage: 2 Anesthesia Used: 4% Lidocaine Solution Depth: in the subcutaneous layer Percentage of wound debrided: 100 Instrument Used: 5mm curette Tissue Removed: Adherent slough, fibrin, hyperkeratotic rim Severity: Fat Layer Exposed Amount of bleeding with debridement: Mild Bleeding Controlled with: Pressure Patient tolerated procedure well Assessment/Plan Assessment: Chronic nonhealing ulcer to right anterior lateral lower leg. DM with neuropathy. PVD. Lower extremity edema. Malnutrition Plan: Patient was again examined and evaluated today. Debridement was performed as noted in the clinical panel. Patient received his fifth epi fix to the ulcer site. Ulcer site was then covered with wound veil, steri strips and dry sterile dressing. Epifix is to stay on for the next week and should not be removed. Patient understands this. No clinical signs of infection appreciated. Patient is already established with a vascular surgeon and has a follow-up appointment with him in [place]. I also recommended to continue high- protein diet to help optimize wound healing. Patient was educated on all signs and symptoms of local and systemic infection and were instructed to go to the ER immediately should he notice any. All other questions were answered to the patient and the patient's satisfaction. Patient will follow-up in clinic in 1 week for further evaluation.
[2017-06-06 09:24] VITALS: BP 141/77; PULSE 87; RESP 24; TEMP 36.6; BMI 32.0
--- NOTE | 2017-06-06 09:51 | PCM.WC.PN ---
(1) Non-pressure chronic ulcer of right lower leg with fat layer exposed Status: Acute Current Visit: No Code(s): L97.912 - Non-pressure chronic ulcer of unspecified part of right lower leg with fat layer exposed (2) Type 2 diabetes mellitus with diabetic polyneuropathy Status: Acute Current Visit: No Code(s): E11.42 - Type 2 diabetes mellitus with diabetic polyneuropathy (3) Malnutrition Status: Suspected Current Visit: No Code(s): E46 - Unspecified protein-calorie malnutrition (4) Edema, lower extremity Status: Acute Current Visit: No Code(s): R60.0 - Localized edema Type of Wound Date of Service: 06/06/17 Chief Complaint: non healing ulcer to right lower leg with fat layer exposed History of Wound: This 82-year-old diabetic male presents to the wound healing center today with for follow up of nonhealing ulcer to the anterior lateral aspect of the right lower leg. Patient states approximately 2-1/2 months ago the corner of the car door caught his leg and tore some skin. The ulcer slowly started to develop and get worse until it got to the state it is now. Denies any purulence or extending reddness surrounding ulcer. Patient finished his antibiotic prescription from Dr. Nicole. He currently denies any feelings of nausea, vomiting, fever, or chills. Progress of Wound: Ulcer continues to show improvement since last week. The ulcer continues to show a decrease in slough and was debrided again today. Ulcer to medial aspect that was treated as a skin tear is healed this week. Patient was approved for epi fix and will receive #6 today - Physical Exam Vital Signs Temp Pulse Resp BP 97.8 F 87 24 H 141/77 H 06/06/17 09:24 06/06/17 09:24 06/06/17 09:24 06/06/17 09:24 Extremities: Capillary Refill Less than 3 Seconds, No Calf Tenderness - negative salas and rosales sign, Diminished Peripheral Pulses - faintly palpable dp and pt pulses, Edema - slight lower extremity edema Skin: Ulcer/ Wound - Chronic nonhealing ulcer noted to the right proximal anterior lateral lower leg measurements are noted below. Ulcer base is a mixture of granular tissue, adherent slough, fibrin, and hyperkeratotic rim. Also base is a majority granular tissue. There is no surrounding cellulitis. No increase in warmth. No purulence. No malodor. No probing. No tracking. No undermining. Wound Measurements and Assessment WC - Nurse 1 - General Ulcer Measurement Start: 05/23/17 08:49 Freq: Status: Active Protocol: Activity Type Activity Date Activity User E-Sign Co-Sign Detail Recorded Client Recorded Date Recorded By Document 06/06/17 09:24 BMF [id number] 06/06/17 09:30 BMF 06/06/17 09:24 Wound Center Nurse 1 [Ulcer Assessment] #1 right lateral le trauma ulcer -Combined with other wound No -Current Size (cm) - Length 2.4 -Current Size (cm) - Width 1.2 -Current Size (cm) - Depth 0.2 -Total Square Cm 2.88 -Photo Taken No -Epithelialization Small 1-33% -Tunneling No -Undermining/Tunneling No -Exudate Amt Small (1-33%) -Exudate Type Serous -Wound Margin Distinct, Outline Attached -Granulation Amt Large (67-100%) -Granulation Quality [place] -Slough/Fibrin Yes -Necrosis Amt Small (1-33%) -Necrotic Tissue Type Adherent Slough -Structure Exposed None/Limited to Skin Breakdown -Texture (Olamide-wound Skin Appearance) Scarring -Moisture (Olamide-wound Skin Appearance Dry/Scaly ) -Color (Olamide-wound Skin Appearance) Assessed -Temperature (Olamide-wound Skin No Abnormality Appearance) (Pt Warm) -Tenderness on Palpation (Olamide-wound No Skin Appearance) -Ulcer Cleansing Rinsed/ Irrigated with Saline -Foul Odor after Cleansing No -Anesthetic Used 4% Lidocaine Solution [Edema Assessment] -Lower Limb Edema Present Yes -Right Calf (cm) 38.9 -Right Ankle (cm) 24.4 WC - Nurse 2 - General Ulcer CM Notes Start: 05/23/17 08:49 Freq: Status: Active Protocol: Activity Type Activity Date Activity User E-Sign Co-Sign Detail Recorded Client Recorded Date Recorded By Document 06/06/17 09:40 MW [id number] 06/06/17 09:47 MW 06/06/17 09:40 Wound Center Nurse 2 [Procedure/Treatment] #1 right lateral le trauma ulcer -Time 09:40 -Correct Patient Yes -Correct Side, Site, Position Yes -Correct Procedure Yes -Procedure Performed Yes -Type of Procedure Debridement -Clinical Debridement Subcutaneous -Post Debridement Size (cm) - Length 2.7 -Post Debridement Size (cm) - Width 1.4 -Post Debridement Size (cm) - Depth 0.3 -Total Square Cm 3.78 -Wound/Ulcer Outcome Not Healed -Ulcer Cleansing Rinsed/ Irrigated with Saline -Foul Odor after Cleansing No -Bioengineered Tissue Yes -Type of bioengineered Tissue EPIFIX -Expiration Date 03/25/22 -Product Lot Number [id number] -Percent Used 100 -Saline Lot Number [id number] -Bleeding Controlled with Pressure -Treatment Response Procedure Tolerated Well [See Physician Procedure note for Specifics] Pain Scale: 0-10 Numeric [Pain] -Is Patient Pain Free? Yes Musculoskeletal: Tenderness - some tenderness to ulcer site Neurological: Sensory exam intact to light touch and pain Psych/Mental Status: Normal Affect, Appropriate Debridement Note Post-Debridement Measurements/Treatment WC - Nurse 2 - General Ulcer CM Notes Start: 05/23/17 08:49 Freq: Status: Active Protocol: Activity Type Activity Date Activity User E-Sign Co-Sign Detail Recorded Client Recorded Date Recorded By Document 05/23/17 09:07 MW [id number] 05/23/17 09:18 MW Document 05/30/17 10:28 MW [id number] 05/30/17 10:32 MW Document 06/06/17 09:40 MW [id number] 06/06/17 09:47 MW 05/23/17 05/30/17 06/06/17 09:07 10:28 09:40 Wound Center Nurse 2 #2 RIGHT MEDIAL LE -Time 09:07 -Correct Patient Yes -Correct Side, Site, Position Yes -Correct Procedure Yes -Procedure Performed Yes -Type of Procedure Debridement -Clinical Debridement Subcutaneous -Post Debridement Size (cm) - Length 1.8 -Post Debridement Size (cm) - Width 0.8 -Post Debridement Size (cm) - Depth 0.1 -Total Square Cm 1.44 -Wound/Ulcer Outcome Not Healed -Ulcer Cleansing Rinsed/ Irrigated with Saline -Foul Odor after Cleansing No -Bioengineered Tissue No -Type of bioengineered Tissue EPIFIX -Bleeding Controlled with Pressure -Treatment Response Procedure Tolerated Well #1 right lateral le trauma ulcer -Time 09:07 10:29 09:40 -Correct Patient Yes Yes Yes -Correct Side, Site, Position Yes Yes Yes -Correct Procedure Yes Yes Yes -Procedure Performed Yes Yes Yes -Type of Procedure Debridement Debridement Debridement -Clinical Debridement Subcutaneous Subcutaneous Subcutaneous -Post Debridement Size (cm) - Length 3.8 2.7 2.7 -Post Debridement Size (cm) - Width 1.7 1.5 1.4 -Post Debridement Size (cm) - Depth 0.3 0.3 0.3 -Total Square Cm 6.46 4.05 3.78 -Wound/Ulcer Outcome Not Healed Not Healed Not Healed -Ulcer Cleansing Rinsed/ Not Cleansed Rinsed/ Irrigated with Irrigated with Saline Saline -Foul Odor after Cleansing No No No -Bioengineered Tissue Yes Yes -Type of bioengineered Tissue EPIFIX EPIFIX EPIFIX -Expiration Date 02/22/22 03/25/22 -Product Lot Number [id number] -Percent Used 100 100 -Saline Lot Number [id number] -Bleeding Controlled with Pressure Pressure Pressure -Treatment Response Procedure Procedure Procedure Tolerated Well Tolerated Well Tolerated Well Pain Scale: 0-10 Numeric Is Patient Pain Free? Yes Yes Yes Wound debrided: Right anterior lateral lower leg Laterality: Right Wound Grade/Stage: 2 Type of Debridement: Excisional debridement Anesthesia Used: 4% Lidocaine Solution Depth: in the subcutaneous layer Percentage of wound debrided: 100 Instrument Used: 5mm curette Tissue Removed: slough, fibrin, hyperkeratotic rim Severity: Fat Layer Exposed Amount of bleeding with debridement: Mild Bleeding Controlled with: Pressure Patient tolerated procedure well Assessment/Plan Assessment: Chronic nonhealing ulcer to right anterior lateral lower leg. DM with neuropathy. PVD. Lower extremity edema. Malnutrition Plan: Patient was again examined and evaluated today. Debridement was performed as noted in the clinical panel. Patient received his sixth epi fix to the ulcer site. Ulcer site was then covered with wound veil, steri strips and dry sterile dressing. Epifix is to stay on for the next week and should not be removed. Patient understands this. No clinical signs of infection appreciated. Patient is already established with a vascular surgeon and has a follow-up appointment with him in [place]. I also recommended to continue high-protein diet to help optimize wound healing. Patient was educated on all signs and symptoms of local and systemic infection and were instructed to go to the ER immediately should he notice any. All other questions were answered to the patient and the patient's satisfaction. Patient will follow-up in clinic in 1 week for further evaluation.
--- NOTE | 2017-06-06 09:55 | PN.PCM_ITS ---
(1) Non-pressure chronic ulcer of right lower leg with fat layer exposed Status: Acute Current Visit: No Code(s): L97.912 - Non-pressure chronic ulcer of unspecified part of right lower leg with fat layer exposed (2) Type 2 diabetes mellitus with diabetic polyneuropathy Status: Acute Current Visit: No Code(s): E11.42 - Type 2 diabetes mellitus with diabetic polyneuropathy (3) Malnutrition Status: Suspected Current Visit: No Code(s): E46 - Unspecified protein- calorie malnutrition (4) Edema, lower extremity Status: Acute Current Visit: No Code(s): R60.0 - Localized edema Type of Wound Date of Service: 06/06/17 Chief Complaint: non healing ulcer to right lower leg with fat layer exposed History of Wound: This 82-year-old diabetic male presents to the wound healing center today with for follow up of nonhealing ulcer to the anterior lateral aspect of the right lower leg. Patient states approximately 2-1/2 months ago the corner of the car door caught his leg and tore some skin. The ulcer slowly started to develop and get worse until it got to the state it is now. Denies any purulence or extending reddness surrounding ulcer. Patient finished his antibiotic prescription from Dr. Nicole. He currently denies any feelings of nausea, vomiting, fever, or chills. Progress of Wound: Ulcer continues to show improvement since last week. The ulcer continues to show a decrease in slough and was debrided again today. Ulcer to medial aspect that was treated as a skin tear is healed this week. Patient was approved for epi fix and will receive #6 today - Physical Exam Vital Signs Temp Pulse Resp BP 97.8 F 87 24 H 141/77 H 06/06/17 09:24 06/06/17 09:24 06/06/17 09:24 06/06/17 09:24 Extremities: Capillary Refill Less than 3 Seconds, No Calf Tenderness - negative salas and rosales sign, Diminished Peripheral Pulses - faintly palpable dp and pt pulses, Edema - slight lower extremity edema Skin: Ulcer/ Wound - Chronic nonhealing ulcer noted to the right proximal anterior lateral lower leg measurements are noted below. Ulcer base is a mixture of granular tissue, adherent slough, fibrin, and hyperkeratotic rim. Also base is a majority granular tissue. There is no surrounding cellulitis. No increase in warmth. No purulence. No malodor. No probing. No tracking. No undermining. Wound Measurements and Assessment WC - Nurse 1 - General Ulcer Measurement Start: 05/23/17 08:49 Freq: Status: Active Protocol: Activity Type Activity Date Activity User E-Sign Co-Sign Detail Recorded Client Recorded Date Recorded By Document 06/06/17 09:24 BMF [id number] 06/06/17 09:30 BMF 06/06/17 09:24 Wound Center Nurse 1 [Ulcer Assessment] #1 right lateral le trauma ulcer -Combined with other wound No -Current Size (cm) - Length 2.4 -Current Size (cm) - Width 1.2 -Current Size (cm) - Depth 0.2 -Total Square Cm 2.88 -Photo Taken No -Epithelialization Small 1-33% -Tunneling No -Undermining/Tunneling No -Exudate Amt Small (1-33%) -Exudate Type Serous -Wound Margin Distinct, Outline Attached -Granulation Amt Large (67-100%) -Granulation Quality [place] -Slough/Fibrin Yes -Necrosis Amt Small (1-33%) -Necrotic Tissue Type Adherent Slough -Structure Exposed None/Limited to Skin Breakdown -Texture (Olamide-wound Skin Appearance) Scarring -Moisture (Olamide-wound Skin Appearance Dry/Scaly ) -Color (Olamide-wound Skin Appearance) Assessed -Temperature (Olamide-wound Skin No Abnormality Appearance) (Pt Warm) -Tenderness on Palpation (Olamide-wound No Skin Appearance) -Ulcer Cleansing Rinsed/ Irrigated with Saline -Foul Odor after Cleansing No -Anesthetic Used 4% Lidocaine Solution [Edema Assessment] -Lower Limb Edema Present Yes -Right Calf (cm) 38.9 -Right Ankle (cm) 24.4 WC - Nurse 2 - General Ulcer CM Notes Start: 05/23/17 08:49 Freq: Status: Active Protocol: Activity Type Activity Date Activity User E-Sign Co-Sign Detail Recorded Client Recorded Date Recorded By Document 06/06/17 09:40 MW [id number] 06/06/17 09:47 MW 06/06/17 09:40 Wound Center Nurse 2 [Procedure/Treatment] #1 right lateral le trauma ulcer -Time 09:40 -Correct Patient Yes -Correct Side, Site, Position Yes -Correct Procedure Yes -Procedure Performed Yes -Type of Procedure Debridement -Clinical Debridement Subcutaneous -Post Debridement Size (cm) - Length 2.7 -Post Debridement Size (cm) - Width 1.4 -Post Debridement Size (cm) - Depth 0.3 -Total Square Cm 3.78 -Wound/Ulcer Outcome Not Healed -Ulcer Cleansing Rinsed/ Irrigated with Saline -Foul Odor after Cleansing No -Bioengineered Tissue Yes -Type of bioengineered Tissue EPIFIX -Expiration Date 03/25/22 -Product Lot Number [id number] -Percent Used 100 -Saline Lot Number [id number] -Bleeding Controlled with Pressure -Treatment Response Procedure Tolerated Well [See Physician Procedure note for Specifics] Pain Scale: 0-10 Numeric [Pain] -Is Patient Pain Free? Yes Musculoskeletal: Tenderness - some tenderness to ulcer site Neurological: Sensory exam intact to light touch and pain Psych/Mental Status: Normal Affect, Appropriate Debridement Note Post-Debridement Measurements/Treatment WC - Nurse 2 - General Ulcer CM Notes Start: 05/23/17 08:49 Freq: Status: Active Protocol: Activity Type Activity Date Activity User E-Sign Co-Sign Detail Recorded Client Recorded Date Recorded By Document 05/23/17 09:07 MW [id number] 05/23/17 09:18 MW Document 05/30/17 10:28 MW [id number] 05/30/17 10:32 MW Document 06/06/17 09:40 MW [id number] 06/06/17 09:47 MW 05/23/17 05/30/17 06/06/17 09:07 10:28 09:40 Wound Center Nurse 2 #2 RIGHT MEDIAL LE -Time 09:07 -Correct Patient Yes -Correct Side, Site, Position Yes -Correct Procedure Yes -Procedure Performed Yes -Type of Procedure Debridement -Clinical Debridement Subcutaneous -Post Debridement Size (cm) - Length 1.8 -Post Debridement Size (cm) - Width 0.8 -Post Debridement Size (cm) - Depth 0.1 -Total Square Cm 1.44 -Wound/Ulcer Outcome Not Healed -Ulcer Cleansing Rinsed/ Irrigated with Saline -Foul Odor after Cleansing No -Bioengineered Tissue No -Type of bioengineered Tissue EPIFIX -Bleeding Controlled with Pressure -Treatment Response Procedure Tolerated Well #1 right lateral le trauma ulcer -Time 09:07 10:29 09:40 -Correct Patient Yes Yes Yes -Correct Side, Site, Position Yes Yes Yes -Correct Procedure Yes Yes Yes -Procedure Performed Yes Yes Yes -Type of Procedure Debridement Debridement Debridement -Clinical Debridement Subcutaneous Subcutaneous Subcutaneous -Post Debridement Size (cm) - Length 3.8 2.7 2.7 -Post Debridement Size (cm) - Width 1.7 1.5 1.4 -Post Debridement Size (cm) - Depth 0.3 0.3 0.3 -Total Square Cm 6.46 4.05 3.78 -Wound/Ulcer Outcome Not Healed Not Healed Not Healed -Ulcer Cleansing Rinsed/ Not Cleansed Rinsed/ Irrigated with Irrigated with Saline Saline -Foul Odor after Cleansing No No No -Bioengineered Tissue Yes Yes -Type of bioengineered Tissue EPIFIX EPIFIX EPIFIX -Expiration Date 02/22/22 03/25/22 -Product Lot Number [id number] -Percent Used 100 100 -Saline Lot Number [id number] -Bleeding Controlled with Pressure Pressure Pressure -Treatment Response Procedure Procedure Procedure Tolerated Well Tolerated Well Tolerated Well Pain Scale: 0-10 Numeric Is Patient Pain Free? Yes Yes Yes Wound debrided: Right anterior lateral lower leg Laterality: Right Wound Grade/Stage: 2 Type of Debridement: Excisional debridement Anesthesia Used: 4% Lidocaine Solution Depth: in the subcutaneous layer Percentage of wound debrided: 100 Instrument Used: 5mm curette Tissue Removed: slough, fibrin, hyperkeratotic rim Severity: Fat Layer Exposed Amount of bleeding with debridement: Mild Bleeding Controlled with: Pressure Patient tolerated procedure well Assessment/Plan Assessment: Chronic nonhealing ulcer to right anterior lateral lower leg. DM with neuropathy. PVD. Lower extremity edema. Malnutrition Plan: Patient was again examined and evaluated today. Debridement was performed as noted in the clinical panel. Patient received his sixth epi fix to the ulcer site. Ulcer site was then covered with wound veil, steri strips and dry sterile dressing. Epifix is to stay on for the next week and should not be removed. Patient understands this. No clinical signs of infection appreciated. Patient is already established with a vascular surgeon and has a follow-up appointment with him in [place]. I also recommended to continue high- protein diet to help optimize wound healing. Patient was educated on all signs and symptoms of local and systemic infection and were instructed to go to the ER immediately should he notice any. All other questions were answered to the patient and the patient's satisfaction. Patient will follow-up in clinic in 1 week for further evaluation.
[2017-06-13 08:20] VITALS: BP 151/68; PULSE 82; RESP 18; TEMP 36.4; BMI 32.0
--- NOTE | 2017-06-13 09:07 | PCM.WC.PN ---
(1) Non-pressure chronic ulcer of right lower leg with fat layer exposed Status: Acute Current Visit: No Code(s): L97.912 - Non-pressure chronic ulcer of unspecified part of right lower leg with fat layer exposed (2) Type 2 diabetes mellitus with diabetic polyneuropathy Status: Acute Current Visit: No Code(s): E11.42 - Type 2 diabetes mellitus with diabetic polyneuropathy (3) Malnutrition Status: Suspected Current Visit: No Code(s): E46 - Unspecified protein-calorie malnutrition (4) Edema, lower extremity Status: Acute Current Visit: No Code(s): R60.0 - Localized edema Type of Wound Date of Service: 06/13/17 Chief Complaint: non healing ulcer to right lower leg with fat layer exposed History of Wound: This 82-year-old diabetic male presents to the wound healing center today with for follow up of nonhealing ulcer to the anterior lateral aspect of the right lower leg. Patient states approximately 2-1/2 months ago the corner of the car door caught his leg and tore some skin. The ulcer slowly started to develop and get worse until it got to the state it is now. Denies any purulence or extending reddness surrounding ulcer. Patient finished his antibiotic prescription from Dr. Nicole. He currently denies any feelings of nausea, vomiting, fever, or chills. Progress of Wound: Ulcer continues to show improvement since last week. There is a decrease in size and ulcer base appearance. The ulcer continues to show a decrease in slough and was debrided again today. Patient was approved for epi fix and will receive #7 today - Physical Exam Vital Signs Temp Pulse Resp BP 97.5 F L 82 18 151/68 H 06/13/17 08:20 06/13/17 08:20 06/13/17 08:20 06/13/17 08:20 General: Alert, Oriented x3, Cooperative, No apparent distress Extremities: Capillary Refill Less than 3 Seconds, No Calf Tenderness - negative salas and rosales sign, Diminished Peripheral Pulses - DP and PT pulses faintly palpable, Edema - slight lower extremity edema Skin: Ulcer/ Wound - Chronic nonhealing ulcer noted to the right proximal anterior lateral lower leg measurements are noted below. Ulcer is improved in size and appearance today. Ulcer base is a mixture of granular tissue, adherent slough, fibrin, and hyperkeratotic rim. Also base is a majority granular tissue. There is no surrounding cellulitis. No increase in warmth. No purulence. No malodor. No probing. No tracking. No undermining. Wound Measurements and Assessment - Nurse 1 - General Ulcer Measurement Start: 05/23/17 08:49 Freq: Status: Active Protocol: Activity Type Activity Date Activity User E-Sign Co-Sign Detail Recorded Client Recorded Date Recorded By Document 06/13/17 08:20 DL [id number] 06/13/17 08:27 DL 06/13/17 08:20 Wound Center Nurse 1 [Ulcer Assessment] #1 right lateral le trauma ulcer -Current Size (cm) - Length 1.9 -Current Size (cm) - Width 1 -Current Size (cm) - Depth 0.3 -Total Square Cm 1.9 -Photo Taken No -Exudate Amt Small (1-33%) -Exudate Type Serosanguineous -Wound Margin Distinct, Outline Attached -Granulation Amt Medium (34-66%) -Granulation Quality [place] -Necrosis Amt Medium (34-66%) -Necrotic Tissue Type Adherent Slough -Structure Exposed N/A -Texture (Olamide-wound Skin Appearance) Scarring -Moisture (Olamide-wound Skin Appearance No Abnormality ) -Color (Olamide-wound Skin Appearance) No Abnormality -Temperature (Olamide-wound Skin No Abnormality Appearance) (Pt Warm) -Tenderness on Palpation (Olamide-wound No Skin Appearance) -Ulcer Cleansing Wound Cleanser -Foul Odor after Cleansing No -Anesthetic Used 4% Lidocaine Solution [Edema Assessment] -Right Calf (cm) 34.8 -Right Ankle (cm) 25.4 - Nurse 2 - General Ulcer CM Notes Start: 05/23/17 08:49 Freq: Status: Active Protocol: Activity Type Activity Date Activity User E-Sign Co-Sign Detail Recorded Client Recorded Date Recorded By Document 06/13/17 08:50 MW [id number] 06/13/17 08:52 MW 06/13/17 08:50 Wound Center Nurse 2 [Procedure/Treatment] #1 right lateral le trauma ulcer -Time 08:40 -Correct Patient Yes -Correct Side, Site, Position Yes -Correct Procedure Yes -Procedure Performed Yes -Type of Procedure Debridement -Clinical Debridement Subcutaneous -Post Debridement Size (cm) - Length 2.3 -Post Debridement Size (cm) - Width 1.1 -Post Debridement Size (cm) - Depth 0.3 -Total Square Cm 2.53 -Wound/Ulcer Outcome Not Healed -Ulcer Cleansing Rinsed/ Irrigated with Saline -Foul Odor after Cleansing No -Type of bioengineered Tissue EPIFIX -Expiration Date 03/25/22 -Product Lot Number [id number] -Percent Used 100 -Saline Lot Number [id number] -Bleeding Controlled with Pressure -Treatment Response Procedure Tolerated Well [See Physician Procedure note for Specifics] Pain Scale: 0-10 Numeric [Pain] -Is Patient Pain Free? Yes Musculoskeletal: Tenderness - tenderness to aforementioned ulcer Neurological: Sensory exam intact to light touch and pain Psych/Mental Status: Normal Affect, Appropriate Debridement Note Post-Debridement Measurements/Treatment WC - Nurse 2 - General Ulcer CM Notes Start: 05/23/17 08:49 Freq: Status: Active Protocol: Activity Type Activity Date Activity User E-Sign Co-Sign Detail Recorded Client Recorded Date Recorded By Document 05/23/17 09:07 MW [id number] 05/23/17 09:18 MW Document 05/30/17 10:28 MW [id number] 05/30/17 10:32 MW Document 06/06/17 09:40 MW [id number] 06/06/17 09:47 MW Document 06/13/17 08:50 MW [id number] 06/13/17 08:52 MW 05/23/17 05/30/17 06/06/17 09:07 10:28 09:40 Wound Center Nurse 2 #2 RIGHT MEDIAL LE -Time 09:07 -Correct Patient Yes -Correct Side, Site, Position Yes -Correct Procedure Yes -Procedure Performed Yes -Type of Procedure Debridement -Clinical Debridement Subcutaneous -Post Debridement Size (cm) - Length 1.8 -Post Debridement Size (cm) - Width 0.8 -Post Debridement Size (cm) - Depth 0.1 -Total Square Cm 1.44 -Wound/Ulcer Outcome Not Healed -Ulcer Cleansing Rinsed/ Irrigated with Saline -Foul Odor after Cleansing No -Bioengineered Tissue No -Type of bioengineered Tissue EPIFIX -Bleeding Controlled with Pressure -Treatment Response Procedure Tolerated Well #1 right lateral le trauma ulcer -Time 09:07 10:29 09:40 -Correct Patient Yes Yes Yes -Correct Side, Site, Position Yes Yes Yes -Correct Procedure Yes Yes Yes -Procedure Performed Yes Yes Yes -Type of Procedure Debridement Debridement Debridement -Clinical Debridement Subcutaneous Subcutaneous Subcutaneous -Post Debridement Size (cm) - Length 3.8 2.7 2.7 -Post Debridement Size (cm) - Width 1.7 1.5 1.4 -Post Debridement Size (cm) - Depth 0.3 0.3 0.3 -Total Square Cm 6.46 4.05 3.78 -Wound/Ulcer Outcome Not Healed Not Healed Not Healed -Ulcer Cleansing Rinsed/ Not Cleansed Rinsed/ Irrigated with Irrigated with Saline Saline -Foul Odor after Cleansing No No No -Bioengineered Tissue Yes Yes -Type of bioengineered Tissue EPIFIX EPIFIX EPIFIX -Expiration Date 02/22/22 03/25/22 -Product Lot Number [id number] -Percent Used 100 100 -Saline Lot Number [id number] -Bleeding Controlled with Pressure Pressure Pressure -Treatment Response Procedure Procedure Procedure Tolerated Well Tolerated Well Tolerated Well Pain Scale: 0-10 Numeric Is Patient Pain Free? Yes Yes Yes 06/13/17 08:50 Wound Center Nurse 2 #2 RIGHT MEDIAL LE -Time -Correct Patient -Correct Side, Site, Position -Correct Procedure -Procedure Performed -Type of Procedure -Clinical Debridement -Post Debridement Size (cm) - Length -Post Debridement Size (cm) - Width -Post Debridement Size (cm) - Depth -Total Square Cm -Wound/Ulcer Outcome -Ulcer Cleansing -Foul Odor after Cleansing -Bioengineered Tissue -Type of bioengineered Tissue -Bleeding Controlled with -Treatment Response #1 right lateral le trauma ulcer -Time 08:40 -Correct Patient Yes -Correct Side, Site, Position Yes -Correct Procedure Yes -Procedure Performed Yes -Type of Procedure Debridement -Clinical Debridement Subcutaneous -Post Debridement Size (cm) - Length 2.3 -Post Debridement Size (cm) - Width 1.1 -Post Debridement Size (cm) - Depth 0.3 -Total Square Cm 2.53 -Wound/Ulcer Outcome Not Healed -Ulcer Cleansing Rinsed/ Irrigated with Saline -Foul Odor after Cleansing No -Bioengineered Tissue -Type of bioengineered Tissue EPIFIX -Expiration Date 03/25/22 -Product Lot Number [id number] -Percent Used 100 -Saline Lot Number [id number] -Bleeding Controlled with Pressure -Treatment Response Procedure Tolerated Well Pain Scale: 0-10 Numeric Is Patient Pain Free? Yes Wound debrided: Right anterior lateral lower leg Laterality: Right Wound Grade/Stage: 2 Type of Debridement: Excisional debridement Anesthesia Used: 4% Lidocaine Solution Depth: in the subcutaneous layer Percentage of wound debrided: 100 Instrument Used: 5mm curette Tissue Removed: adherent slough, fibrin, hyperkeratotic rim Severity: Fat Layer Exposed Amount of bleeding with debridement: Mild Bleeding Controlled with: Pressure Patient tolerated procedure well Assessment/Plan Assessment: Chronic nonhealing ulcer to right anterior lateral lower leg. DM with neuropathy. PVD. Lower extremity edema. Malnutrition Plan: Patient was again examined and evaluated today. Debridement was performed as noted in the clinical panel. Patient received his seventh epi fix to the ulcer site. Ulcer site was then covered with wound veil, steri strips and dry sterile dressing. Epifix is to stay on for the next week and should not be removed. Patient understands this. No clinical signs of infection appreciated. Patient is already established with a vascular surgeon and has a follow-up appointment with him in [place]. I again recommended to continue high-protein diet to help optimize wound healing. Patient was educated on all signs and symptoms of local and systemic infection and were instructed to go to the ER immediately should he notice any. All other questions were answered to the patient's satisfaction. Patient will follow-up in clinic in 1 week for further evaluation.
--- NOTE | 2017-06-13 09:11 | PN.PCM_ITS ---
(1) Non-pressure chronic ulcer of right lower leg with fat layer exposed Status: Acute Current Visit: No Code(s): L97.912 - Non-pressure chronic ulcer of unspecified part of right lower leg with fat layer exposed (2) Type 2 diabetes mellitus with diabetic polyneuropathy Status: Acute Current Visit: No Code(s): E11.42 - Type 2 diabetes mellitus with diabetic polyneuropathy (3) Malnutrition Status: Suspected Current Visit: No Code(s): E46 - Unspecified protein- calorie malnutrition (4) Edema, lower extremity Status: Acute Current Visit: No Code(s): R60.0 - Localized edema Type of Wound Date of Service: 06/13/17 Chief Complaint: non healing ulcer to right lower leg with fat layer exposed History of Wound: This 82-year-old diabetic male presents to the wound healing center today with for follow up of nonhealing ulcer to the anterior lateral aspect of the right lower leg. Patient states approximately 2-1/2 months ago the corner of the car door caught his leg and tore some skin. The ulcer slowly started to develop and get worse until it got to the state it is now. Denies any purulence or extending reddness surrounding ulcer. Patient finished his antibiotic prescription from Dr. Nicole. He currently denies any feelings of nausea, vomiting, fever, or chills. Progress of Wound: Ulcer continues to show improvement since last week. There is a decrease in size and ulcer base appearance. The ulcer continues to show a decrease in slough and was debrided again today. Patient was approved for epi fix and will receive #7 today - Physical Exam Vital Signs Temp Pulse Resp BP 97.5 F L 82 18 151/68 H 06/13/17 08:20 06/13/17 08:20 06/13/17 08:20 06/13/17 08:20 General: Alert, Oriented x3, Cooperative, No apparent distress Extremities: Capillary Refill Less than 3 Seconds, No Calf Tenderness - negative salas and rosales sign, Diminished Peripheral Pulses - DP and PT pulses faintly palpable, Edema - slight lower extremity edema Skin: Ulcer/ Wound - Chronic nonhealing ulcer noted to the right proximal anterior lateral lower leg measurements are noted below. Ulcer is improved in size and appearance today. Ulcer base is a mixture of granular tissue, adherent slough, fibrin, and hyperkeratotic rim. Also base is a majority granular tissue. There is no surrounding cellulitis. No increase in warmth. No purulence. No malodor. No probing. No tracking. No undermining. Wound Measurements and Assessment - Nurse 1 - General Ulcer Measurement Start: 05/23/17 08:49 Freq: Status: Active Protocol: Activity Type Activity Date Activity User E-Sign Co-Sign Detail Recorded Client Recorded Date Recorded By Document 06/13/17 08:20 DL [id number] 06/13/17 08:27 DL 06/13/17 08:20 Wound Center Nurse 1 [Ulcer Assessment] #1 right lateral le trauma ulcer -Current Size (cm) - Length 1.9 -Current Size (cm) - Width 1 -Current Size (cm) - Depth 0.3 -Total Square Cm 1.9 -Photo Taken No -Exudate Amt Small (1-33%) -Exudate Type Serosanguineous -Wound Margin Distinct, Outline Attached -Granulation Amt Medium (34-66%) -Granulation Quality [place] -Necrosis Amt Medium (34-66%) -Necrotic Tissue Type Adherent Slough -Structure Exposed N/A -Texture (Olamide-wound Skin Appearance) Scarring -Moisture (Olamide-wound Skin Appearance No Abnormality ) -Color (Olamide-wound Skin Appearance) No Abnormality -Temperature (Olamide-wound Skin No Abnormality Appearance) (Pt Warm) -Tenderness on Palpation (Olamide-wound No Skin Appearance) -Ulcer Cleansing Wound Cleanser -Foul Odor after Cleansing No -Anesthetic Used 4% Lidocaine Solution [Edema Assessment] -Right Calf (cm) 34.8 -Right Ankle (cm) 25.4 - Nurse 2 - General Ulcer CM Notes Start: 05/23/17 08:49 Freq: Status: Active Protocol: Activity Type Activity Date Activity User E-Sign Co-Sign Detail Recorded Client Recorded Date Recorded By Document 06/13/17 08:50 MW [id number] 06/13/17 08:52 MW 06/13/17 08:50 Wound Center Nurse 2 [Procedure/Treatment] #1 right lateral le trauma ulcer -Time 08:40 -Correct Patient Yes -Correct Side, Site, Position Yes -Correct Procedure Yes -Procedure Performed Yes -Type of Procedure Debridement -Clinical Debridement Subcutaneous -Post Debridement Size (cm) - Length 2.3 -Post Debridement Size (cm) - Width 1.1 -Post Debridement Size (cm) - Depth 0.3 -Total Square Cm 2.53 -Wound/Ulcer Outcome Not Healed -Ulcer Cleansing Rinsed/ Irrigated with Saline -Foul Odor after Cleansing No -Type of bioengineered Tissue EPIFIX -Expiration Date 03/25/22 -Product Lot Number [id number] -Percent Used 100 -Saline Lot Number [id number] -Bleeding Controlled with Pressure -Treatment Response Procedure Tolerated Well [See Physician Procedure note for Specifics] Pain Scale: 0-10 Numeric [Pain] -Is Patient Pain Free? Yes Musculoskeletal: Tenderness - tenderness to aforementioned ulcer Neurological: Sensory exam intact to light touch and pain Psych/Mental Status: Normal Affect, Appropriate Debridement Note Post-Debridement Measurements/Treatment WC - Nurse 2 - General Ulcer CM Notes Start: 05/23/17 08:49 Freq: Status: Active Protocol: Activity Type Activity Date Activity User E-Sign Co-Sign Detail Recorded Client Recorded Date Recorded By Document 05/23/17 09:07 MW [id number] 05/23/17 09:18 MW Document 05/30/17 10:28 MW [id number] 05/30/17 10:32 MW Document 06/06/17 09:40 MW [id number] 06/06/17 09:47 MW Document 06/13/17 08:50 MW [id number] 06/13/17 08:52 MW 05/23/17 05/30/17 06/06/17 09:07 10:28 09:40 Wound Center Nurse 2 #2 RIGHT MEDIAL LE -Time 09:07 -Correct Patient Yes -Correct Side, Site, Position Yes -Correct Procedure Yes -Procedure Performed Yes -Type of Procedure Debridement -Clinical Debridement Subcutaneous -Post Debridement Size (cm) - Length 1.8 -Post Debridement Size (cm) - Width 0.8 -Post Debridement Size (cm) - Depth 0.1 -Total Square Cm 1.44 -Wound/Ulcer Outcome Not Healed -Ulcer Cleansing Rinsed/ Irrigated with Saline -Foul Odor after Cleansing No -Bioengineered Tissue No -Type of bioengineered Tissue EPIFIX -Bleeding Controlled with Pressure -Treatment Response Procedure Tolerated Well #1 right lateral le trauma ulcer -Time 09:07 10:29 09:40 -Correct Patient Yes Yes Yes -Correct Side, Site, Position Yes Yes Yes -Correct Procedure Yes Yes Yes -Procedure Performed Yes Yes Yes -Type of Procedure Debridement Debridement Debridement -Clinical Debridement Subcutaneous Subcutaneous Subcutaneous -Post Debridement Size (cm) - Length 3.8 2.7 2.7 -Post Debridement Size (cm) - Width 1.7 1.5 1.4 -Post Debridement Size (cm) - Depth 0.3 0.3 0.3 -Total Square Cm 6.46 4.05 3.78 -Wound/Ulcer Outcome Not Healed Not Healed Not Healed -Ulcer Cleansing Rinsed/ Not Cleansed Rinsed/ Irrigated with Irrigated with Saline Saline -Foul Odor after Cleansing No No No -Bioengineered Tissue Yes Yes -Type of bioengineered Tissue EPIFIX EPIFIX EPIFIX -Expiration Date 02/22/22 03/25/22 -Product Lot Number [id number] -Percent Used 100 100 -Saline Lot Number [id number] -Bleeding Controlled with Pressure Pressure Pressure -Treatment Response Procedure Procedure Procedure Tolerated Well Tolerated Well Tolerated Well Pain Scale: 0-10 Numeric Is Patient Pain Free? Yes Yes Yes 06/13/17 08:50 Wound Center Nurse 2 #2 RIGHT MEDIAL LE -Time -Correct Patient -Correct Side, Site, Position -Correct Procedure -Procedure Performed -Type of Procedure -Clinical Debridement -Post Debridement Size (cm) - Length -Post Debridement Size (cm) - Width -Post Debridement Size (cm) - Depth -Total Square Cm -Wound/Ulcer Outcome -Ulcer Cleansing -Foul Odor after Cleansing -Bioengineered Tissue -Type of bioengineered Tissue -Bleeding Controlled with -Treatment Response #1 right lateral le trauma ulcer -Time 08:40 -Correct Patient Yes -Correct Side, Site, Position Yes -Correct Procedure Yes -Procedure Performed Yes -Type of Procedure Debridement -Clinical Debridement Subcutaneous -Post Debridement Size (cm) - Length 2.3 -Post Debridement Size (cm) - Width 1.1 -Post Debridement Size (cm) - Depth 0.3 -Total Square Cm 2.53 -Wound/Ulcer Outcome Not Healed -Ulcer Cleansing Rinsed/ Irrigated with Saline -Foul Odor after Cleansing No -Bioengineered Tissue -Type of bioengineered Tissue EPIFIX -Expiration Date 03/25/22 -Product Lot Number [id number] -Percent Used 100 -Saline Lot Number [id number] -Bleeding Controlled with Pressure -Treatment Response Procedure Tolerated Well Pain Scale: 0-10 Numeric Is Patient Pain Free? Yes Wound debrided: Right anterior lateral lower leg Laterality: Right Wound Grade/Stage: 2 Type of Debridement: Excisional debridement Anesthesia Used: 4% Lidocaine Solution Depth: in the subcutaneous layer Percentage of wound debrided: 100 Instrument Used: 5mm curette Tissue Removed: adherent slough, fibrin, hyperkeratotic rim Severity: Fat Layer Exposed Amount of bleeding with debridement: Mild Bleeding Controlled with: Pressure Patient tolerated procedure well Assessment/Plan Assessment: Chronic nonhealing ulcer to right anterior lateral lower leg. DM with neuropathy. PVD. Lower extremity edema. Malnutrition Plan: Patient was again examined and evaluated today. Debridement was performed as noted in the clinical panel. Patient received his seventh epi fix to the ulcer site. Ulcer site was then covered with wound veil, steri strips and dry sterile dressing. Epifix is to stay on for the next week and should not be removed. Patient understands this. No clinical signs of infection appreciated. Patient is already established with a vascular surgeon and has a follow-up appointment with him in [place]. I again recommended to continue high- protein diet to help optimize wound healing. Patient was educated on all signs and symptoms of local and systemic infection and were instructed to go to the ER immediately should he notice any. All other questions were answered to the patient's satisfaction. Patient will follow-up in clinic in 1 week for further evaluation.
[2017-06-20 08:44] VITALS: BP 156/61; PULSE 81; RESP 18; TEMP 36.5; BMI 32.0
--- NOTE | 2017-06-20 09:44 | PCM.WC.PN ---
(1) Non-pressure chronic ulcer of right lower leg with fat layer exposed Status: Acute Current Visit: No Code(s): L97.912 - Non-pressure chronic ulcer of unspecified part of right lower leg with fat layer exposed (2) Type 2 diabetes mellitus with diabetic polyneuropathy Status: Acute Current Visit: No Code(s): E11.42 - Type 2 diabetes mellitus with diabetic polyneuropathy (3) Malnutrition Status: Suspected Current Visit: No Code(s): E46 - Unspecified protein-calorie malnutrition (4) Edema, lower extremity Status: Acute Current Visit: No Code(s): R60.0 - Localized edema Type of Wound Date of Service: 06/20/17 Chief Complaint: non healing ulcer to right lower leg with fat layer exposed History of Wound: This 82-year-old diabetic male presents to the wound healing center today with for follow up of nonhealing ulcer to the anterior lateral aspect of the right lower leg. Patient states approximately 2-1/2 months ago the corner of the car door caught his leg and tore some skin. The ulcer slowly started to develop and get worse until it got to the state it is now. Denies any purulence or extending reddness surrounding ulcer. Patient finished his antibiotic prescription from Dr. Nicole. He currently denies any feelings of nausea, vomiting, fever, or chills. Progress of Wound: Ulcer continues to show improvement this week. There is a slight decrease in size. The ulcer continues to show a decrease in slough and was debrided again today. Patient was approved for epi fix and will receive #8 today - Physical Exam Vital Signs Temp Pulse Resp BP 97.7 F L 81 18 156/61 H 06/20/17 08:44 06/20/17 08:44 06/20/17 08:44 06/20/17 08:44 General: Alert, Oriented x3, Cooperative, No apparent distress Skin: Ulcer/ Wound - Chronic ulcer noted to the right proximal anterior lateral lower leg measurements are noted below. Ulcer is improved in size and appearance again today. Ulcer base is a mixture of granular tissue, adherent slough, fibrin, and hyperkeratotic rim. Also base remains a majority granular tissue. There is no surrounding cellulitis, no increase in warmth, no purulence, no malodor, no probing, no tracking, no undermining. Wound Measurements and Assessment WC - Nurse 1 - General Ulcer Measurement Start: 05/23/17 08:49 Freq: Status: Active Protocol: Activity Type Activity Date Activity User E-Sign Co-Sign Detail Recorded Client Recorded Date Recorded By Document 06/20/17 08:44 DL [id number] 06/20/17 08:55 DL 06/20/17 08:44 Wound Center Nurse 1 [Ulcer Assessment] #1 right lateral le trauma ulcer -Current Size (cm) - Length 1.7 -Current Size (cm) - Width 0.8 -Current Size (cm) - Depth 0.2 -Total Square Cm 1.36 -Photo Taken No -Exudate Amt Small (1-33%) -Exudate Type Yellow/Green -Wound Margin Distinct, Outline Attached -Granulation Amt Small (1-33%) -Granulation Quality [place] -Necrosis Amt Large (67-100%) -Necrotic Tissue Type Adherent Slough -Structure Exposed N/A -Texture (Olamide-wound Skin Appearance) Scarring -Moisture (Olamide-wound Skin Appearance Dry/Scaly ) -Color (Olamide-wound Skin Appearance) Hemosiderin Staining -Temperature (Olamide-wound Skin No Abnormality Appearance) (Pt Warm) -Ulcer Cleansing Rinsed/ Irrigated with Saline -Foul Odor after Cleansing No -Anesthetic Used 4% Lidocaine Solution [Edema Assessment] -Right Calf (cm) 32.5 -Right Ankle (cm) 25 - Nurse 2 - General Ulcer CM Notes Start: 05/23/17 08:49 Freq: Status: Active Protocol: Activity Type Activity Date Activity User E-Sign Co-Sign Detail Recorded Client Recorded Date Recorded By Document 06/20/17 09:14 MW [id number] 06/20/17 09:19 MW 06/20/17 09:14 Wound Center Nurse 2 [Procedure/Treatment] #1 right lateral le trauma ulcer -Time 09:16 -Correct Patient Yes -Correct Side, Site, Position Yes -Correct Procedure Yes -Procedure Performed Yes -Type of Procedure Debridement -Clinical Debridement Subcutaneous -Post Debridement Size (cm) - Length 2.2 -Post Debridement Size (cm) - Width 1.1 -Post Debridement Size (cm) - Depth 0.3 -Total Square Cm 2.42 -Wound/Ulcer Outcome Not Healed -Ulcer Cleansing Rinsed/ Irrigated with Saline -Foul Odor after Cleansing No -Type of bioengineered Tissue EPIFIX -Expiration Date 03/25/22 -Product Lot Number [id number] -Percent Used 100 -Bleeding Controlled with Pressure -Treatment Response Procedure Tolerated Well [See Physician Procedure note for Specifics] Pain Scale: 0-10 Numeric [Pain] -Is Patient Pain Free? Yes Musculoskeletal: Tenderness - to aforementioned ulcer site Neurological: Sensory exam intact to light touch and pain Psych/Mental Status: Normal Affect, Appropriate Debridement Note Post-Debridement Measurements/Treatment WC - Nurse 2 - General Ulcer CM Notes Start: 05/23/17 08:49 Freq: Status: Active Protocol: Activity Type Activity Date Activity User E-Sign Co-Sign Detail Recorded Client Recorded Date Recorded By Document 05/23/17 09:07 MW [id number] 05/23/17 09:18 MW Document 05/30/17 10:28 MW [id number] 05/30/17 10:32 MW Document 06/06/17 09:40 MW [id number] 06/06/17 09:47 MW Document 06/13/17 08:50 MW [id number] 06/13/17 08:52 MW Document 06/20/17 09:14 MW [id number] 06/20/17 09:19 MW 05/23/17 05/30/17 06/06/17 09:07 10:28 09:40 Wound Center Nurse 2 #2 RIGHT MEDIAL LE -Time 09:07 -Correct Patient Yes -Correct Side, Site, Position Yes -Correct Procedure Yes -Procedure Performed Yes -Type of Procedure Debridement -Clinical Debridement Subcutaneous -Post Debridement Size (cm) - Length 1.8 -Post Debridement Size (cm) - Width 0.8 -Post Debridement Size (cm) - Depth 0.1 -Total Square Cm 1.44 -Wound/Ulcer Outcome Not Healed -Ulcer Cleansing Rinsed/ Irrigated with Saline -Foul Odor after Cleansing No -Bioengineered Tissue No -Type of bioengineered Tissue EPIFIX -Bleeding Controlled with Pressure -Treatment Response Procedure Tolerated Well #1 right lateral le trauma ulcer -Time 09:07 10:29 09:40 -Correct Patient Yes Yes Yes -Correct Side, Site, Position Yes Yes Yes -Correct Procedure Yes Yes Yes -Procedure Performed Yes Yes Yes -Type of Procedure Debridement Debridement Debridement -Clinical Debridement Subcutaneous Subcutaneous Subcutaneous -Post Debridement Size (cm) - Length 3.8 2.7 2.7 -Post Debridement Size (cm) - Width 1.7 1.5 1.4 -Post Debridement Size (cm) - Depth 0.3 0.3 0.3 -Total Square Cm 6.46 4.05 3.78 -Wound/Ulcer Outcome Not Healed Not Healed Not Healed -Ulcer Cleansing Rinsed/ Not Cleansed Rinsed/ Irrigated with Irrigated with Saline Saline -Foul Odor after Cleansing No No No -Bioengineered Tissue Yes Yes -Type of bioengineered Tissue EPIFIX EPIFIX EPIFIX -Expiration Date 02/22/22 03/25/22 -Product Lot Number [id number] -Percent Used 100 100 -Saline Lot Number [id number] -Bleeding Controlled with Pressure Pressure Pressure -Treatment Response Procedure Procedure Procedure Tolerated Well Tolerated Well Tolerated Well Pain Scale: 0-10 Numeric Is Patient Pain Free? Yes Yes Yes 06/13/17 06/20/17 08:50 09:14 Wound Center Nurse 2 #2 RIGHT MEDIAL LE -Time -Correct Patient -Correct Side, Site, Position -Correct Procedure -Procedure Performed -Type of Procedure -Clinical Debridement -Post Debridement Size (cm) - Length -Post Debridement Size (cm) - Width -Post Debridement Size (cm) - Depth -Total Square Cm -Wound/Ulcer Outcome -Ulcer Cleansing -Foul Odor after Cleansing -Bioengineered Tissue -Type of bioengineered Tissue -Bleeding Controlled with -Treatment Response #1 right lateral le trauma ulcer -Time 08:40 09:16 -Correct Patient Yes Yes -Correct Side, Site, Position Yes Yes -Correct Procedure Yes Yes -Procedure Performed Yes Yes -Type of Procedure Debridement Debridement -Clinical Debridement Subcutaneous Subcutaneous -Post Debridement Size (cm) - Length 2.3 2.2 -Post Debridement Size (cm) - Width 1.1 1.1 -Post Debridement Size (cm) - Depth 0.3 0.3 -Total Square Cm 2.53 2.42 -Wound/Ulcer Outcome Not Healed Not Healed -Ulcer Cleansing Rinsed/ Rinsed/ Irrigated with Irrigated with Saline Saline -Foul Odor after Cleansing No No -Bioengineered Tissue -Type of bioengineered Tissue EPIFIX EPIFIX -Expiration Date 03/25/22 03/25/22 -Product Lot Number [id number] -Percent Used 100 100 -Saline Lot Number [id number] -Bleeding Controlled with Pressure Pressure -Treatment Response Procedure Procedure Tolerated Well Tolerated Well Pain Scale: 0-10 Numeric Is Patient Pain Free? Yes Yes Wound debrided: right anterior lateral lower leg Laterality: Right Wound Grade/Stage: 2 Type of Debridement: Excisional debridement Anesthesia Used: 4% Lidocaine Solution Depth: in the subcutaneous layer Percentage of wound debrided: 100 Instrument Used: 5mm curette Tissue Removed: adherent slough, fibrin, hyperkeratotic rim Severity: Fat Layer Exposed Amount of bleeding with debridement: Mild Bleeding Controlled with: Pressure Patient tolerated procedure well Assessment/Plan Assessment: Chronic nonhealing ulcer to right anterior lateral lower leg. DM with neuropathy. PVD. Lower extremity edema. Malnutrition Plan: Patient was again examined and evaluated today. Debridement was performed as noted in the clinical panel. Patient received his eighth epi fix today. Ulcer site was then covered with wound veil, steri strips and dry sterile dressing. Epifix is to stay on for the next week and should not be removed. Patient understands this. No clinical signs of infection appreciated. Patient is already established with a vascular surgeon and has a follow-up appointment with him in [place]. I again recommended to continue high-protein diet to help optimize wound healing. Patient was educated on all signs and symptoms of local and systemic infection and were instructed to go to the ER immediately should he notice any. All other questions were answered to the patient's satisfaction. Patient will follow-up in clinic in 1 week for further evaluation.
--- NOTE | 2017-06-20 09:55 | PN.PCM_ITS ---
(1) Non-pressure chronic ulcer of right lower leg with fat layer exposed Status: Acute Current Visit: No Code(s): L97.912 - Non-pressure chronic ulcer of unspecified part of right lower leg with fat layer exposed (2) Type 2 diabetes mellitus with diabetic polyneuropathy Status: Acute Current Visit: No Code(s): E11.42 - Type 2 diabetes mellitus with diabetic polyneuropathy (3) Malnutrition Status: Suspected Current Visit: No Code(s): E46 - Unspecified protein- calorie malnutrition (4) Edema, lower extremity Status: Acute Current Visit: No Code(s): R60.0 - Localized edema Type of Wound Date of Service: 06/20/17 Chief Complaint: non healing ulcer to right lower leg with fat layer exposed History of Wound: This 82-year-old diabetic male presents to the wound healing center today with for follow up of nonhealing ulcer to the anterior lateral aspect of the right lower leg. Patient states approximately 2-1/2 months ago the corner of the car door caught his leg and tore some skin. The ulcer slowly started to develop and get worse until it got to the state it is now. Denies any purulence or extending reddness surrounding ulcer. Patient finished his antibiotic prescription from Dr. Nicole. He currently denies any feelings of nausea, vomiting, fever, or chills. Progress of Wound: Ulcer continues to show improvement this week. There is a slight decrease in size. The ulcer continues to show a decrease in slough and was debrided again today. Patient was approved for epi fix and will receive #8 today - Physical Exam Vital Signs Temp Pulse Resp BP 97.7 F L 81 18 156/61 H 06/20/17 08:44 06/20/17 08:44 06/20/17 08:44 06/20/17 08:44 General: Alert, Oriented x3, Cooperative, No apparent distress Skin: Ulcer/ Wound - Chronic ulcer noted to the right proximal anterior lateral lower leg measurements are noted below. Ulcer is improved in size and appearance again today. Ulcer base is a mixture of granular tissue, adherent slough, fibrin, and hyperkeratotic rim. Also base remains a majority granular tissue. There is no surrounding cellulitis, no increase in warmth, no purulence , no malodor, no probing, no tracking, no undermining. Wound Measurements and Assessment WC - Nurse 1 - General Ulcer Measurement Start: 05/23/17 08:49 Freq: Status: Active Protocol: Activity Type Activity Date Activity User E-Sign Co-Sign Detail Recorded Client Recorded Date Recorded By Document 06/20/17 08:44 DL [id number] 06/20/17 08:55 DL 06/20/17 08:44 Wound Center Nurse 1 [Ulcer Assessment] #1 right lateral le trauma ulcer -Current Size (cm) - Length 1.7 -Current Size (cm) - Width 0.8 -Current Size (cm) - Depth 0.2 -Total Square Cm 1.36 -Photo Taken No -Exudate Amt Small (1-33%) -Exudate Type Yellow/Green -Wound Margin Distinct, Outline Attached -Granulation Amt Small (1-33%) -Granulation Quality [place] -Necrosis Amt Large (67-100%) -Necrotic Tissue Type Adherent Slough -Structure Exposed N/A -Texture (Olamide-wound Skin Appearance) Scarring -Moisture (Olamide-wound Skin Appearance Dry/Scaly ) -Color (Olamide-wound Skin Appearance) Hemosiderin Staining -Temperature (Olamide-wound Skin No Abnormality Appearance) (Pt Warm) -Ulcer Cleansing Rinsed/ Irrigated with Saline -Foul Odor after Cleansing No -Anesthetic Used 4% Lidocaine Solution [Edema Assessment] -Right Calf (cm) 32.5 -Right Ankle (cm) 25 - Nurse 2 - General Ulcer CM Notes Start: 05/23/17 08:49 Freq: Status: Active Protocol: Activity Type Activity Date Activity User E-Sign Co-Sign Detail Recorded Client Recorded Date Recorded By Document 06/20/17 09:14 MW [id number] 06/20/17 09:19 MW 06/20/17 09:14 Wound Center Nurse 2 [Procedure/Treatment] #1 right lateral le trauma ulcer -Time 09:16 -Correct Patient Yes -Correct Side, Site, Position Yes -Correct Procedure Yes -Procedure Performed Yes -Type of Procedure Debridement -Clinical Debridement Subcutaneous -Post Debridement Size (cm) - Length 2.2 -Post Debridement Size (cm) - Width 1.1 -Post Debridement Size (cm) - Depth 0.3 -Total Square Cm 2.42 -Wound/Ulcer Outcome Not Healed -Ulcer Cleansing Rinsed/ Irrigated with Saline -Foul Odor after Cleansing No -Type of bioengineered Tissue EPIFIX -Expiration Date 03/25/22 -Product Lot Number [id number] -Percent Used 100 -Bleeding Controlled with Pressure -Treatment Response Procedure Tolerated Well [See Physician Procedure note for Specifics] Pain Scale: 0-10 Numeric [Pain] -Is Patient Pain Free? Yes Musculoskeletal: Tenderness - to aforementioned ulcer site Neurological: Sensory exam intact to light touch and pain Psych/Mental Status: Normal Affect, Appropriate Debridement Note Post-Debridement Measurements/Treatment WC - Nurse 2 - General Ulcer CM Notes Start: 05/23/17 08:49 Freq: Status: Active Protocol: Activity Type Activity Date Activity User E-Sign Co-Sign Detail Recorded Client Recorded Date Recorded By Document 05/23/17 09:07 MW [id number] 05/23/17 09:18 MW Document 05/30/17 10:28 MW [id number] 05/30/17 10:32 MW Document 06/06/17 09:40 MW [id number] 06/06/17 09:47 MW Document 06/13/17 08:50 MW [id number] 06/13/17 08:52 MW Document 06/20/17 09:14 MW [id number] 06/20/17 09:19 MW 05/23/17 05/30/17 06/06/17 09:07 10:28 09:40 Wound Center Nurse 2 #2 RIGHT MEDIAL LE -Time 09:07 -Correct Patient Yes -Correct Side, Site, Position Yes -Correct Procedure Yes -Procedure Performed Yes -Type of Procedure Debridement -Clinical Debridement Subcutaneous -Post Debridement Size (cm) - Length 1.8 -Post Debridement Size (cm) - Width 0.8 -Post Debridement Size (cm) - Depth 0.1 -Total Square Cm 1.44 -Wound/Ulcer Outcome Not Healed -Ulcer Cleansing Rinsed/ Irrigated with Saline -Foul Odor after Cleansing No -Bioengineered Tissue No -Type of bioengineered Tissue EPIFIX -Bleeding Controlled with Pressure -Treatment Response Procedure Tolerated Well #1 right lateral le trauma ulcer -Time 09:07 10:29 09:40 -Correct Patient Yes Yes Yes -Correct Side, Site, Position Yes Yes Yes -Correct Procedure Yes Yes Yes -Procedure Performed Yes Yes Yes -Type of Procedure Debridement Debridement Debridement -Clinical Debridement Subcutaneous Subcutaneous Subcutaneous -Post Debridement Size (cm) - Length 3.8 2.7 2.7 -Post Debridement Size (cm) - Width 1.7 1.5 1.4 -Post Debridement Size (cm) - Depth 0.3 0.3 0.3 -Total Square Cm 6.46 4.05 3.78 -Wound/Ulcer Outcome Not Healed Not Healed Not Healed -Ulcer Cleansing Rinsed/ Not Cleansed Rinsed/ Irrigated with Irrigated with Saline Saline -Foul Odor after Cleansing No No No -Bioengineered Tissue Yes Yes -Type of bioengineered Tissue EPIFIX EPIFIX EPIFIX -Expiration Date 02/22/22 03/25/22 -Product Lot Number [id number] -Percent Used 100 100 -Saline Lot Number [id number] -Bleeding Controlled with Pressure Pressure Pressure -Treatment Response Procedure Procedure Procedure Tolerated Well Tolerated Well Tolerated Well Pain Scale: 0-10 Numeric Is Patient Pain Free? Yes Yes Yes 06/13/17 06/20/17 08:50 09:14 Wound Center Nurse 2 #2 RIGHT MEDIAL LE -Time -Correct Patient -Correct Side, Site, Position -Correct Procedure -Procedure Performed -Type of Procedure -Clinical Debridement -Post Debridement Size (cm) - Length -Post Debridement Size (cm) - Width -Post Debridement Size (cm) - Depth -Total Square Cm -Wound/Ulcer Outcome -Ulcer Cleansing -Foul Odor after Cleansing -Bioengineered Tissue -Type of bioengineered Tissue -Bleeding Controlled with -Treatment Response #1 right lateral le trauma ulcer -Time 08:40 09:16 -Correct Patient Yes Yes -Correct Side, Site, Position Yes Yes -Correct Procedure Yes Yes -Procedure Performed Yes Yes -Type of Procedure Debridement Debridement -Clinical Debridement Subcutaneous Subcutaneous -Post Debridement Size (cm) - Length 2.3 2.2 -Post Debridement Size (cm) - Width 1.1 1.1 -Post Debridement Size (cm) - Depth 0.3 0.3 -Total Square Cm 2.53 2.42 -Wound/Ulcer Outcome Not Healed Not Healed -Ulcer Cleansing Rinsed/ Rinsed/ Irrigated with Irrigated with Saline Saline -Foul Odor after Cleansing No No -Bioengineered Tissue -Type of bioengineered Tissue EPIFIX EPIFIX -Expiration Date 03/25/22 03/25/22 -Product Lot Number [id number] -Percent Used 100 100 -Saline Lot Number [id number] -Bleeding Controlled with Pressure Pressure -Treatment Response Procedure Procedure Tolerated Well Tolerated Well Pain Scale: 0-10 Numeric Is Patient Pain Free? Yes Yes Wound debrided: right anterior lateral lower leg Laterality: Right Wound Grade/Stage: 2 Type of Debridement: Excisional debridement Anesthesia Used: 4% Lidocaine Solution Depth: in the subcutaneous layer Percentage of wound debrided: 100 Instrument Used: 5mm curette Tissue Removed: adherent slough, fibrin, hyperkeratotic rim Severity: Fat Layer Exposed Amount of bleeding with debridement: Mild Bleeding Controlled with: Pressure Patient tolerated procedure well Assessment/Plan Assessment: Chronic nonhealing ulcer to right anterior lateral lower leg. DM with neuropathy. PVD. Lower extremity edema. Malnutrition Plan: Patient was again examined and evaluated today. Debridement was performed as noted in the clinical panel. Patient received his eighth epi fix today. Ulcer site was then covered with wound veil, steri strips and dry sterile dressing. Epifix is to stay on for the next week and should not be removed. Patient understands this. No clinical signs of infection appreciated. Patient is already established with a vascular surgeon and has a follow-up appointment with him in [place]. I again recommended to continue high-protein diet to help optimize wound healing. Patient was educated on all signs and symptoms of local and systemic infection and were instructed to go to the ER immediately should he notice any. All other questions were answered to the patient's satisfaction. Patient will follow-up in clinic in 1 week for further evaluation.
== END 2017-06-22 23:59 ==
LOC: WC 09:00
PROVIDERS: Family Provider Family Medicine; PCP Family Medicine; Visit Provider Podiatrist
DX: E11.622 Type 2 diabetes mellitus with other skin ulcer (principal); E11.42 Type 2 diabetes mellitus with diabetic polyneuropathy; L97.812 Non-pressure chronic ulcer of other part of right lower leg with fat layer exposed; R60.0 Localized edema; R09.89 Other specified symptoms and signs involving the circulatory and respiratory systems; L97.811 Non-pressure chronic ulcer of other part of right lower leg limited to breakdown of skin
CPT/HCPCS: 15271; Q4131

== ENCOUNTER 2017-07-18 08:30 | Outpatient (RCR) | payer MEDICARE, OTHER, SELFPAY ==
[2017-06-23 00:46] VITALS: BP 149/72; PULSE 81; RESP 18; TEMP 36.5; BMI 32.0
[2017-06-27 08:32] VITALS: BP 149/89; PULSE 69; RESP 20; TEMP 36.6; BMI 32.0
--- NOTE | 2017-06-27 09:27 | PCM.WC.PN ---
(1) Non-pressure chronic ulcer of right lower leg with fat layer exposed Status: Acute Current Visit: No Code(s): L97.912 - Non-pressure chronic ulcer of unspecified part of right lower leg with fat layer exposed (2) Edema, lower extremity Status: Acute Current Visit: No Code(s): R60.0 - Localized edema (3) Type 2 diabetes mellitus with diabetic polyneuropathy Status: Acute Current Visit: No Code(s): E11.42 - Type 2 diabetes mellitus with diabetic polyneuropathy (4) Malnutrition Status: Suspected Current Visit: No Code(s): E46 - Unspecified protein-calorie malnutrition Type of Wound Date of Service: 06/27/17 Chief Complaint: non healing ulcer to right lower leg with fat layer exposed History of Wound: This 82-year-old diabetic male presents to the wound healing center today with for follow up of nonhealing ulcer to the anterior lateral aspect of the right lower leg. Patient states approximately 2-1/2 months ago the corner of the car door caught his leg and tore some skin. The ulcer slowly started to develop and get worse until it got to the state it is now. Denies any purulence or extending reddness surrounding ulcer. Patient finished his antibiotic prescription from Dr. Nicole. He currently denies any feelings of nausea, vomiting, fever, or chills. Progress of Wound: Ulcer continues to show improvement this week. There is a slight decrease in size again this week. The ulcer continues to show a decrease in slough and was debrided again today. Patient was approved for epi fix and will receive #9 today - Physical Exam Vital Signs Temp Pulse Resp BP 97.8 F 69 20 H 149/89 H 06/27/17 08:32 06/27/17 08:32 06/27/17 08:32 06/27/17 08:32 General: Alert, Oriented x3, Cooperative, No apparent distress Extremities: Capillary Refill Less than 3 Seconds, No Calf Tenderness - negative salas and rosales sign, Diminished Peripheral Pulses, Edema - slight lower extremity edema Skin: Ulcer/ Wound - Chronic ulcer note to the right proximal anterior lateral lower leg with measurements noted below. Ulcer continues to show slight improvement weekly in both size and dept in most areas of the ulcer. Still same dept as last week at its deepest area. Ulcer base is a mixture of granular tissue, adherent slough, fibrin, and hyperkeratotic rim. Base is majority granular tissue. There is no surrounding cellulitis, no inc in warmth, no purulence, no malodor, no probing, no tracking, and no undermining appreciated. Wound Measurements and Assessment WC - Nurse 1 - General Ulcer Measurement Start: 06/27/17 08:32 Freq: Status: Active Protocol: Activity Type Activity Date Activity User E-Sign Co-Sign Detail Recorded Client Recorded Date Recorded By Document 06/27/17 08:32 DL [id number] 06/27/17 08:40 DL 06/27/17 08:32 Wound Center Nurse 1 [Ulcer Assessment] #1 right lateral le trauma ulcer -Current Size (cm) - Length 2 -Current Size (cm) - Width 0.8 -Current Size (cm) - Depth 0.2 -Total Square Cm 1.6 -Photo Taken No -Exudate Amt Small (1-33%) -Exudate Type Serosanguineous -Wound Margin Distinct, Outline Attached -Granulation Amt Medium (34-66%) -Granulation Quality [place] -Necrosis Amt Medium (34-66%) -Necrotic Tissue Type Adherent Slough -Structure Exposed N/A -Texture (Olamied-wound Skin Appearance) Scarring -Moisture (Olamide-wound Skin Appearance No Abnormality ) -Color (Olamide-wound Skin Appearance) Rubor -Temperature (Olamide-wound Skin No Abnormality Appearance) (Pt Warm) -Ulcer Cleansing Wound Cleanser -Foul Odor after Cleansing No -Anesthetic Used 4% Lidocaine Solution [Edema Assessment] -Right Calf (cm) 32.5 -Right Ankle (cm) 23.5 WC - Nurse 2 - General Ulcer CM Notes Start: 06/27/17 08:32 Freq: Status: Active Protocol: Activity Type Activity Date Activity User E-Sign Co-Sign Detail Recorded Client Recorded Date Recorded By Document 06/27/17 09:04 MW [id number] 06/27/17 09:10 MW 06/27/17 09:04 Wound Center Nurse 2 [Procedure/Treatment] #1 right lateral le trauma ulcer -Time 09:08 -Correct Patient Yes -Correct Side, Site, Position Yes -Correct Procedure Yes -Procedure Performed Yes -Type of Procedure Debridement -Clinical Debridement Subcutaneous -Post Debridement Size (cm) - Length 2.0 -Post Debridement Size (cm) - Width 0.9 -Post Debridement Size (cm) - Depth 0.3 -Total Square Cm 1.80 -Wound/Ulcer Outcome Not Healed -Ulcer Cleansing Rinsed/ Irrigated with Saline -Foul Odor after Cleansing No -Type of bioengineered Tissue EPIFIX -Expiration Date 03/25/22 -Product Lot Number [id number] -Percent Used 100 -Saline Lot Number [id number] -Bleeding Controlled with Pressure -Treatment Response Procedure Tolerated Well [See Physician Procedure note for Specifics] Pain Scale: 0-10 Numeric [Pain] -Is Patient Pain Free? Yes Musculoskeletal: Tenderness - slight tenderness to ulcer site Neurological: Sensory exam intact to light touch and pain Psych/Mental Status: Normal Affect, Appropriate Debridement Note Post-Debridement Measurements/Treatment WC - Nurse 2 - General Ulcer CM Notes Start: 06/27/17 08:32 Freq: Status: Active Protocol: Activity Type Activity Date Activity User E-Sign Co-Sign Detail Recorded Client Recorded Date Recorded By Document 06/27/17 09:04 MW [id number] 06/27/17 09:10 MW 06/27/17 09:04 Wound Center Nurse 2 #1 right lateral le trauma ulcer -Time 09:08 -Correct Patient Yes -Correct Side, Site, Position Yes -Correct Procedure Yes -Procedure Performed Yes -Type of Procedure Debridement -Clinical Debridement Subcutaneous -Post Debridement Size (cm) - Length 2.0 -Post Debridement Size (cm) - Width 0.9 -Post Debridement Size (cm) - Depth 0.3 -Total Square Cm 1.80 -Wound/Ulcer Outcome Not Healed -Ulcer Cleansing Rinsed/ Irrigated with Saline -Foul Odor after Cleansing No -Type of bioengineered Tissue EPIFIX -Expiration Date 03/25/22 -Product Lot Number [id number] -Percent Used 100 -Saline Lot Number [id number] -Bleeding Controlled with Pressure -Treatment Response Procedure Tolerated Well Pain Scale: 0-10 Numeric Is Patient Pain Free? Yes Wound debrided: right anterior lateral lower leg Laterality: Right Wound Grade/Stage: 2 Type of Debridement: Excisional debridement Anesthesia Used: 4% Lidocaine Solution Depth: in the subcutaneous layer Percentage of wound debrided: 100 Instrument Used: 3mm curette Tissue Removed: adherent slough, fibrin, hyperkeratotic tissue Severity: Fat Layer Exposed Amount of bleeding with debridement: Mild Bleeding Controlled with: Pressure Patient tolerated procedure well Assessment/Plan Assessment: Chronic nonhealing ulcer to right anterior lateral lower leg. DM with neuropathy. PVD. Lower extremity edema. Malnutrition Plan: Patient was again examined and evaluated today. Debridement was performed as noted in the clinical panel. Patient received his ninth epi fix today. Ulcer site was then covered with wound veil, steri strips and dry sterile dressing. Epifix is to stay on for the next week and should not be removed. Patient understands this. We will check to see if we can get an extension on his epifix as he has shown weekly progress while using the product. No clinical signs of infection appreciated. Patient is already established with a vascular surgeon and has a follow-up appointment with him in [place]. I again recommended to continue high-protein diet to help optimize wound healing. Patient was educated on all signs and symptoms of local and systemic infection and were instructed to go to the ER immediately should he notice any. All other questions were answered to the patient's satisfaction. Patient will follow-up in clinic in 1 week for further evaluation.
--- NOTE | 2017-06-27 09:35 | PN.PCM_ITS ---
(1) Non-pressure chronic ulcer of right lower leg with fat layer exposed Status: Acute Current Visit: No Code(s): L97.912 - Non-pressure chronic ulcer of unspecified part of right lower leg with fat layer exposed (2) Edema, lower extremity Status: Acute Current Visit: No Code(s): R60.0 - Localized edema (3) Type 2 diabetes mellitus with diabetic polyneuropathy Status: Acute Current Visit: No Code(s): E11.42 - Type 2 diabetes mellitus with diabetic polyneuropathy (4) Malnutrition Status: Suspected Current Visit: No Code(s): E46 - Unspecified protein- calorie malnutrition Type of Wound Date of Service: 06/27/17 Chief Complaint: non healing ulcer to right lower leg with fat layer exposed History of Wound: This 82-year-old diabetic male presents to the wound healing center today with for follow up of nonhealing ulcer to the anterior lateral aspect of the right lower leg. Patient states approximately 2-1/2 months ago the corner of the car door caught his leg and tore some skin. The ulcer slowly started to develop and get worse until it got to the state it is now. Denies any purulence or extending reddness surrounding ulcer. Patient finished his antibiotic prescription from Dr. Nicole. He currently denies any feelings of nausea, vomiting, fever, or chills. Progress of Wound: Ulcer continues to show improvement this week. There is a slight decrease in size again this week. The ulcer continues to show a decrease in slough and was debrided again today. Patient was approved for epi fix and will receive #9 today - Physical Exam Vital Signs Temp Pulse Resp BP 97.8 F 69 20 H 149/89 H 06/27/17 08:32 06/27/17 08:32 06/27/17 08:32 06/27/17 08:32 General: Alert, Oriented x3, Cooperative, No apparent distress Extremities: Capillary Refill Less than 3 Seconds, No Calf Tenderness - negative salas and rosales sign, Diminished Peripheral Pulses, Edema - slight lower extremity edema Skin: Ulcer/ Wound - Chronic ulcer note to the right proximal anterior lateral lower leg with measurements noted below. Ulcer continues to show slight improvement weekly in both size and dept in most areas of the ulcer. Still same dept as last week at its deepest area. Ulcer base is a mixture of granular tissue, adherent slough, fibrin, and hyperkeratotic rim. Base is majority granular tissue. There is no surrounding cellulitis, no inc in warmth, no purulence, no malodor, no probing, no tracking, and no undermining appreciated. Wound Measurements and Assessment WC - Nurse 1 - General Ulcer Measurement Start: 06/27/17 08:32 Freq: Status: Active Protocol: Activity Type Activity Date Activity User E-Sign Co-Sign Detail Recorded Client Recorded Date Recorded By Document 06/27/17 08:32 DL [id number] 06/27/17 08:40 DL 06/27/17 08:32 Wound Center Nurse 1 [Ulcer Assessment] #1 right lateral le trauma ulcer -Current Size (cm) - Length 2 -Current Size (cm) - Width 0.8 -Current Size (cm) - Depth 0.2 -Total Square Cm 1.6 -Photo Taken No -Exudate Amt Small (1-33%) -Exudate Type Serosanguineous -Wound Margin Distinct, Outline Attached -Granulation Amt Medium (34-66%) -Granulation Quality [place] -Necrosis Amt Medium (34-66%) -Necrotic Tissue Type Adherent Slough -Structure Exposed N/A -Texture (Olamide-wound Skin Appearance) Scarring -Moisture (Olamide-wound Skin Appearance No Abnormality ) -Color (Olamide-wound Skin Appearance) Rubor -Temperature (Olamide-wound Skin No Abnormality Appearance) (Pt Warm) -Ulcer Cleansing Wound Cleanser -Foul Odor after Cleansing No -Anesthetic Used 4% Lidocaine Solution [Edema Assessment] -Right Calf (cm) 32.5 -Right Ankle (cm) 23.5 WC - Nurse 2 - General Ulcer CM Notes Start: 06/27/17 08:32 Freq: Status: Active Protocol: Activity Type Activity Date Activity User E-Sign Co-Sign Detail Recorded Client Recorded Date Recorded By Document 06/27/17 09:04 MW [id number] 06/27/17 09:10 MW 06/27/17 09:04 Wound Center Nurse 2 [Procedure/Treatment] #1 right lateral le trauma ulcer -Time 09:08 -Correct Patient Yes -Correct Side, Site, Position Yes -Correct Procedure Yes -Procedure Performed Yes -Type of Procedure Debridement -Clinical Debridement Subcutaneous -Post Debridement Size (cm) - Length 2.0 -Post Debridement Size (cm) - Width 0.9 -Post Debridement Size (cm) - Depth 0.3 -Total Square Cm 1.80 -Wound/Ulcer Outcome Not Healed -Ulcer Cleansing Rinsed/ Irrigated with Saline -Foul Odor after Cleansing No -Type of bioengineered Tissue EPIFIX -Expiration Date 03/25/22 -Product Lot Number [id number] -Percent Used 100 -Saline Lot Number [id number] -Bleeding Controlled with Pressure -Treatment Response Procedure Tolerated Well [See Physician Procedure note for Specifics] Pain Scale: 0-10 Numeric [Pain] -Is Patient Pain Free? Yes Musculoskeletal: Tenderness - slight tenderness to ulcer site Neurological: Sensory exam intact to light touch and pain Psych/Mental Status: Normal Affect, Appropriate Debridement Note Post-Debridement Measurements/Treatment WC - Nurse 2 - General Ulcer CM Notes Start: 06/27/17 08:32 Freq: Status: Active Protocol: Activity Type Activity Date Activity User E-Sign Co-Sign Detail Recorded Client Recorded Date Recorded By Document 06/27/17 09:04 MW [id number] 06/27/17 09:10 MW 06/27/17 09:04 Wound Center Nurse 2 #1 right lateral le trauma ulcer -Time 09:08 -Correct Patient Yes -Correct Side, Site, Position Yes -Correct Procedure Yes -Procedure Performed Yes -Type of Procedure Debridement -Clinical Debridement Subcutaneous -Post Debridement Size (cm) - Length 2.0 -Post Debridement Size (cm) - Width 0.9 -Post Debridement Size (cm) - Depth 0.3 -Total Square Cm 1.80 -Wound/Ulcer Outcome Not Healed -Ulcer Cleansing Rinsed/ Irrigated with Saline -Foul Odor after Cleansing No -Type of bioengineered Tissue EPIFIX -Expiration Date 03/25/22 -Product Lot Number [id number] -Percent Used 100 -Saline Lot Number [id number] -Bleeding Controlled with Pressure -Treatment Response Procedure Tolerated Well Pain Scale: 0-10 Numeric Is Patient Pain Free? Yes Wound debrided: right anterior lateral lower leg Laterality: Right Wound Grade/Stage: 2 Type of Debridement: Excisional debridement Anesthesia Used: 4% Lidocaine Solution Depth: in the subcutaneous layer Percentage of wound debrided: 100 Instrument Used: 3mm curette Tissue Removed: adherent slough, fibrin, hyperkeratotic tissue Severity: Fat Layer Exposed Amount of bleeding with debridement: Mild Bleeding Controlled with: Pressure Patient tolerated procedure well Assessment/Plan Assessment: Chronic nonhealing ulcer to right anterior lateral lower leg. DM with neuropathy. PVD. Lower extremity edema. Malnutrition Plan: Patient was again examined and evaluated today. Debridement was performed as noted in the clinical panel. Patient received his ninth epi fix today. Ulcer site was then covered with wound veil, steri strips and dry sterile dressing. Epifix is to stay on for the next week and should not be removed. Patient understands this. We will check to see if we can get an extension on his epifix as he has shown weekly progress while using the product. No clinical signs of infection appreciated. Patient is already established with a vascular surgeon and has a follow-up appointment with him in [place]. I again recommended to continue high-protein diet to help optimize wound healing. Patient was educated on all signs and symptoms of local and systemic infection and were instructed to go to the ER immediately should he notice any. All other questions were answered to the patient's satisfaction. Patient will follow-up in clinic in 1 week for further evaluation.
[2017-07-04 09:53] VITALS: BP 129/71; PULSE 79; RESP 18; TEMP 36.6; BMI 32.0
--- NOTE | 2017-07-04 14:41 | PCM.WC.PN ---
(1) Non-pressure chronic ulcer of right lower leg with fat layer exposed Status: Acute Current Visit: No Code(s): L97.912 - Non-pressure chronic ulcer of unspecified part of right lower leg with fat layer exposed (2) Edema, lower extremity Status: Acute Current Visit: No Code(s): R60.0 - Localized edema (3) Type 2 diabetes mellitus with diabetic polyneuropathy Status: Acute Current Visit: No Code(s): E11.42 - Type 2 diabetes mellitus with diabetic polyneuropathy (4) Malnutrition Status: Suspected Current Visit: No Code(s): E46 - Unspecified protein-calorie malnutrition Type of Wound Date of Service: 07/04/17 Chief Complaint: non healing ulcer to right lower leg with fat layer exposed History of Wound: This 82-year-old diabetic male presents to the wound healing center today with for follow up of nonhealing ulcer to the anterior lateral aspect of the right lower leg. Patient states approximately 2-1/2 months ago the corner of the car door caught his leg and tore some skin. The ulcer slowly started to develop and get worse until it got to the state it is now. Denies any purulence or extending reddness surrounding ulcer. Patient finished his antibiotic prescription from Dr. Nicole. He currently denies any feelings of nausea, vomiting, fever, or chills. Progress of Wound: Ulcer continues to show improvement this week. There is a slight decrease in size again this week. The ulcer continues to show a decrease in slough and was debrided again today. Patient was approved for epi fix and will receive #10 today - Physical Exam Vital Signs Temp Pulse Resp BP 98 F 79 18 129/71 H 07/04/17 09:53 07/04/17 09:53 07/04/17 09:53 07/04/17 09:53 General: Alert, Oriented x3, Cooperative, No apparent distress Extremities: Capillary Refill Less than 3 Seconds, No Calf Tenderness - negative salas and rosales sign, Diminished Peripheral Pulses, Edema - slight lower extremity edema Skin: Ulcer/ Wound - Chronic ulcer noted to the right proximal anterior lateral lower leg with measurements noted below. Ulcer continues to show slight improvement weekly in both size and dept in most areas of the ulcer. Still same dept as last week at its deepest area. Ulcer base is a mixture of granular tissue, adherent slough, fibrin, and hyperkeratotic rim. Base is majority granular tissue. There is no surrounding cellulitis, no inc in warmth, no purulence, no malodor, no probing, no tracking, and no undermining appreciated. Wound Measurements and Assessment - Nurse 1 - General Ulcer Measurement Start: 06/27/17 08:32 Freq: Status: Active Protocol: Activity Type Activity Date Activity User E-Sign Co-Sign Detail Recorded Client Recorded Date Recorded By Document 07/04/17 09:53 [facility] [id number] 07/04/17 10:02 BMF 07/04/17 09:53 Wound Center Nurse 1 [Ulcer Assessment] #1 right lateral le trauma ulcer -Combined with other wound No -Current Size (cm) - Length 1.8 -Current Size (cm) - Width 0.7 -Current Size (cm) - Depth 0.1 -Total Square Cm 1.26 -Date of Last Picture (Recall this 07/04/17 field) -Photo Taken Yes -Epithelialization None Present -Tunneling No -Undermining/Tunneling No -Circular Undermining No -Exudate Amt None Present (0 %) -Wound Margin Distinct, Outline Attached -Granulation Amt None Present (0 %) -Slough/Fibrin Yes -Necrosis Amt Large (67-100%) -Necrotic Tissue Type Adherent Slough -Structure Exposed N/A -Texture (Olamide-wound Skin Appearance) Scarring -Moisture (Olamide-wound Skin Appearance Dry/Scaly ) -Color (Olamide-wound Skin Appearance) Assessed -Temperature (Olamide-wound Skin No Abnormality Appearance) (Pt Warm) -Tenderness on Palpation (Olamide-wound No Skin Appearance) -Ulcer Cleansing Rinsed/ Irrigated with Saline -Foul Odor after Cleansing No -Anesthetic Used 5% Lidocaine Gel [Edema Assessment] -Lower Limb Edema Present Yes -Right Calf (cm) 36.5 -Right Ankle (cm) 26 - Nurse 2 - General Ulcer CM Notes Start: 06/27/17 08:32 Freq: Status: Active Protocol: Activity Type Activity Date Activity User E-Sign Co-Sign Detail Recorded Client Recorded Date Recorded By Document 07/04/17 10:15 MW [id number] 07/04/17 10:22 MW 07/04/17 10:15 Wound Center Nurse 2 [Procedure/Treatment] #1 right lateral le trauma ulcer -Time 10:16 -Correct Patient Yes -Correct Side, Site, Position Yes -Correct Procedure Yes -Procedure Performed Yes -Type of Procedure Debridement -Clinical Debridement Subcutaneous -Post Debridement Size (cm) - Length 1.8 -Post Debridement Size (cm) - Width 0.8 -Post Debridement Size (cm) - Depth 0.3 -Total Square Cm 1.44 -Wound/Ulcer Outcome Not Healed -Ulcer Cleansing Rinsed/ Irrigated with Saline -Foul Odor after Cleansing No -Bioengineered Tissue Yes -Type of bioengineered Tissue EPIFIX -Expiration Date 03/25/22 -Product Lot Number [id number] -Percent Used 100 -Saline Lot Number [id number] -Bleeding Controlled with Pressure -Treatment Response Procedure Tolerated Well [See Physician Procedure note for Specifics] Pain Scale: 0-10 Numeric [Pain] -Is Patient Pain Free? Yes Musculoskeletal: Tenderness - to ulcer site Neurological: Sensory exam intact to light touch and pain Psych/Mental Status: Normal Affect, Appropriate Debridement Note Post-Debridement Measurements/Treatment WC - Nurse 2 - General Ulcer CM Notes Start: 06/27/17 08:32 Freq: Status: Active Protocol: Activity Type Activity Date Activity User E-Sign Co-Sign Detail Recorded Client Recorded Date Recorded By Document 06/27/17 09:04 MW [id number] 06/27/17 09:10 MW Document 07/04/17 10:15 MW [id number] 07/04/17 10:22 MW 06/27/17 07/04/17 09:04 10:15 Wound Center Nurse 2 #1 right lateral le trauma ulcer -Time 09:08 10:16 -Correct Patient Yes Yes -Correct Side, Site, Position Yes Yes -Correct Procedure Yes Yes -Procedure Performed Yes Yes -Type of Procedure Debridement Debridement -Clinical Debridement Subcutaneous Subcutaneous -Post Debridement Size (cm) - Length 2.0 1.8 -Post Debridement Size (cm) - Width 0.9 0.8 -Post Debridement Size (cm) - Depth 0.3 0.3 -Total Square Cm 1.80 1.44 -Wound/Ulcer Outcome Not Healed Not Healed -Ulcer Cleansing Rinsed/ Rinsed/ Irrigated with Irrigated with Saline Saline -Foul Odor after Cleansing No No -Bioengineered Tissue Yes -Type of bioengineered Tissue EPIFIX EPIFIX -Expiration Date 03/25/22 03/25/22 -Product Lot Number [id number] -Percent Used 100 100 -Saline Lot Number [id number] -Bleeding Controlled with Pressure Pressure -Treatment Response Procedure Procedure Tolerated Well Tolerated Well Pain Scale: 0-10 Numeric Is Patient Pain Free? Yes Yes Wound debrided: right anterior lateral lower leg Laterality: Right Wound Grade/Stage: 2 Type of Debridement: Excisional debridement Anesthesia Used: 4% Lidocaine Solution Depth: in the subcutaneous layer Percentage of wound debrided: 100 Instrument Used: 5mm curette Tissue Removed: adherent slough, fibrin, hyperkeratotic tissue Severity: Fat Layer Exposed Amount of bleeding with debridement: Mild Bleeding Controlled with: Pressure Patient tolerated procedure well Assessment/Plan Assessment: Chronic nonhealing ulcer to right anterior lateral lower leg. DM with neuropathy. PVD. Lower extremity edema. Malnutrition Plan: Patient was again examined and evaluated today. Subcutaneous debridement was performed as noted in the clinical panel. Patient received his tenth epi fix today. Ulcer site was then covered with wound veil, steri strips and dry sterile dressing. Epifix is to stay on for the next week and should not be removed. Patient understands this. We will check to see if we can get an extension on his epifix as he has shown weekly progress while using the product. No clinical signs of infection appreciated. Patient is already established with a vascular surgeon and has a follow-up appointment with him in [place]. I again recommended to continue high-protein diet to help optimize wound healing. Patient was educated on all signs and symptoms of local and systemic infection and were instructed to go to the ER immediately should he notice any. All other questions were answered to the patient's satisfaction. Patient will follow-up in clinic in 1 week for further evaluation.
--- NOTE | 2017-07-04 14:44 | PN.PCM_ITS ---
(1) Non-pressure chronic ulcer of right lower leg with fat layer exposed Status: Acute Current Visit: No Code(s): L97.912 - Non-pressure chronic ulcer of unspecified part of right lower leg with fat layer exposed (2) Edema, lower extremity Status: Acute Current Visit: No Code(s): R60.0 - Localized edema (3) Type 2 diabetes mellitus with diabetic polyneuropathy Status: Acute Current Visit: No Code(s): E11.42 - Type 2 diabetes mellitus with diabetic polyneuropathy (4) Malnutrition Status: Suspected Current Visit: No Code(s): E46 - Unspecified protein- calorie malnutrition Type of Wound Date of Service: 07/04/17 Chief Complaint: non healing ulcer to right lower leg with fat layer exposed History of Wound: This 82-year-old diabetic male presents to the wound healing center today with for follow up of nonhealing ulcer to the anterior lateral aspect of the right lower leg. Patient states approximately 2-1/2 months ago the corner of the car door caught his leg and tore some skin. The ulcer slowly started to develop and get worse until it got to the state it is now. Denies any purulence or extending reddness surrounding ulcer. Patient finished his antibiotic prescription from Dr. Nicole. He currently denies any feelings of nausea, vomiting, fever, or chills. Progress of Wound: Ulcer continues to show improvement this week. There is a slight decrease in size again this week. The ulcer continues to show a decrease in slough and was debrided again today. Patient was approved for epi fix and will receive #10 today - Physical Exam Vital Signs Temp Pulse Resp BP 98 F 79 18 129/71 H 07/04/17 09:53 07/04/17 09:53 07/04/17 09:53 07/04/17 09:53 General: Alert, Oriented x3, Cooperative, No apparent distress Extremities: Capillary Refill Less than 3 Seconds, No Calf Tenderness - negative salas and rosales sign, Diminished Peripheral Pulses, Edema - slight lower extremity edema Skin: Ulcer/ Wound - Chronic ulcer noted to the right proximal anterior lateral lower leg with measurements noted below. Ulcer continues to show slight improvement weekly in both size and dept in most areas of the ulcer. Still same dept as last week at its deepest area. Ulcer base is a mixture of granular tissue, adherent slough, fibrin, and hyperkeratotic rim. Base is majority granular tissue. There is no surrounding cellulitis, no inc in warmth, no purulence, no malodor, no probing, no tracking, and no undermining appreciated. Wound Measurements and Assessment - Nurse 1 - General Ulcer Measurement Start: 06/27/17 08:32 Freq: Status: Active Protocol: Activity Type Activity Date Activity User E-Sign Co-Sign Detail Recorded Client Recorded Date Recorded By Document 07/04/17 09:53 [facility] [id number] 07/04/17 10:02 BMF 07/04/17 09:53 Wound Center Nurse 1 [Ulcer Assessment] #1 right lateral le trauma ulcer -Combined with other wound No -Current Size (cm) - Length 1.8 -Current Size (cm) - Width 0.7 -Current Size (cm) - Depth 0.1 -Total Square Cm 1.26 -Date of Last Picture (Recall this 07/04/17 field) -Photo Taken Yes -Epithelialization None Present -Tunneling No -Undermining/Tunneling No -Circular Undermining No -Exudate Amt None Present (0 %) -Wound Margin Distinct, Outline Attached -Granulation Amt None Present (0 %) -Slough/Fibrin Yes -Necrosis Amt Large (67-100%) -Necrotic Tissue Type Adherent Slough -Structure Exposed N/A -Texture (Olamide-wound Skin Appearance) Scarring -Moisture (Olamide-wound Skin Appearance Dry/Scaly ) -Color (Olamide-wound Skin Appearance) Assessed -Temperature (Olamide-wound Skin No Abnormality Appearance) (Pt Warm) -Tenderness on Palpation (Olamide-wound No Skin Appearance) -Ulcer Cleansing Rinsed/ Irrigated with Saline -Foul Odor after Cleansing No -Anesthetic Used 5% Lidocaine Gel [Edema Assessment] -Lower Limb Edema Present Yes -Right Calf (cm) 36.5 -Right Ankle (cm) 26 - Nurse 2 - General Ulcer CM Notes Start: 06/27/17 08:32 Freq: Status: Active Protocol: Activity Type Activity Date Activity User E-Sign Co-Sign Detail Recorded Client Recorded Date Recorded By Document 07/04/17 10:15 MW [id number] 07/04/17 10:22 MW 07/04/17 10:15 Wound Center Nurse 2 [Procedure/Treatment] #1 right lateral le trauma ulcer -Time 10:16 -Correct Patient Yes -Correct Side, Site, Position Yes -Correct Procedure Yes -Procedure Performed Yes -Type of Procedure Debridement -Clinical Debridement Subcutaneous -Post Debridement Size (cm) - Length 1.8 -Post Debridement Size (cm) - Width 0.8 -Post Debridement Size (cm) - Depth 0.3 -Total Square Cm 1.44 -Wound/Ulcer Outcome Not Healed -Ulcer Cleansing Rinsed/ Irrigated with Saline -Foul Odor after Cleansing No -Bioengineered Tissue Yes -Type of bioengineered Tissue EPIFIX -Expiration Date 03/25/22 -Product Lot Number [id number] -Percent Used 100 -Saline Lot Number [id number] -Bleeding Controlled with Pressure -Treatment Response Procedure Tolerated Well [See Physician Procedure note for Specifics] Pain Scale: 0-10 Numeric [Pain] -Is Patient Pain Free? Yes Musculoskeletal: Tenderness - to ulcer site Neurological: Sensory exam intact to light touch and pain Psych/Mental Status: Normal Affect, Appropriate Debridement Note Post-Debridement Measurements/Treatment WC - Nurse 2 - General Ulcer CM Notes Start: 06/27/17 08:32 Freq: Status: Active Protocol: Activity Type Activity Date Activity User E-Sign Co-Sign Detail Recorded Client Recorded Date Recorded By Document 06/27/17 09:04 MW [id number] 06/27/17 09:10 MW Document 07/04/17 10:15 MW [id number] 07/04/17 10:22 MW 06/27/17 07/04/17 09:04 10:15 Wound Center Nurse 2 #1 right lateral le trauma ulcer -Time 09:08 10:16 -Correct Patient Yes Yes -Correct Side, Site, Position Yes Yes -Correct Procedure Yes Yes -Procedure Performed Yes Yes -Type of Procedure Debridement Debridement -Clinical Debridement Subcutaneous Subcutaneous -Post Debridement Size (cm) - Length 2.0 1.8 -Post Debridement Size (cm) - Width 0.9 0.8 -Post Debridement Size (cm) - Depth 0.3 0.3 -Total Square Cm 1.80 1.44 -Wound/Ulcer Outcome Not Healed Not Healed -Ulcer Cleansing Rinsed/ Rinsed/ Irrigated with Irrigated with Saline Saline -Foul Odor after Cleansing No No -Bioengineered Tissue Yes -Type of bioengineered Tissue EPIFIX EPIFIX -Expiration Date 03/25/22 03/25/22 -Product Lot Number [id number] -Percent Used 100 100 -Saline Lot Number [id number] -Bleeding Controlled with Pressure Pressure -Treatment Response Procedure Procedure Tolerated Well Tolerated Well Pain Scale: 0-10 Numeric Is Patient Pain Free? Yes Yes Wound debrided: right anterior lateral lower leg Laterality: Right Wound Grade/Stage: 2 Type of Debridement: Excisional debridement Anesthesia Used: 4% Lidocaine Solution Depth: in the subcutaneous layer Percentage of wound debrided: 100 Instrument Used: 5mm curette Tissue Removed: adherent slough, fibrin, hyperkeratotic tissue Severity: Fat Layer Exposed Amount of bleeding with debridement: Mild Bleeding Controlled with: Pressure Patient tolerated procedure well Assessment/Plan Assessment: Chronic nonhealing ulcer to right anterior lateral lower leg. DM with neuropathy. PVD. Lower extremity edema. Malnutrition Plan: Patient was again examined and evaluated today. Subcutaneous debridement was performed as noted in the clinical panel. Patient received his tenth epi fix today. Ulcer site was then covered with wound veil, steri strips and dry sterile dressing. Epifix is to stay on for the next week and should not be removed. Patient understands this. We will check to see if we can get an extension on his epifix as he has shown weekly progress while using the product. No clinical signs of infection appreciated. Patient is already established with a vascular surgeon and has a follow-up appointment with him in [place]. I again recommended to continue high-protein diet to help optimize wound healing. Patient was educated on all signs and symptoms of local and systemic infection and were instructed to go to the ER immediately should he notice any. All other questions were answered to the patient's satisfaction. Patient will follow-up in clinic in 1 week for further evaluation.
[2017-07-11 08:38] VITALS: BP 152/79; PULSE 81; RESP 20; TEMP 36.6; BMI 32.0
--- NOTE | 2017-07-11 13:00 | PCM.WC.PN ---
(1) Non-pressure chronic ulcer of right lower leg with fat layer exposed Status: Acute Current Visit: No Code(s): L97.912 - Non-pressure chronic ulcer of unspecified part of right lower leg with fat layer exposed (2) Edema, lower extremity Status: Acute Current Visit: No Code(s): R60.0 - Localized edema (3) Type 2 diabetes mellitus with diabetic polyneuropathy Status: Acute Current Visit: No Code(s): E11.42 - Type 2 diabetes mellitus with diabetic polyneuropathy (4) Malnutrition Status: Suspected Current Visit: No Code(s): E46 - Unspecified protein-calorie malnutrition Type of Wound Date of Service: 07/11/17 Chief Complaint: non healing ulcer to right lower leg with fat layer exposed History of Wound: This 82-year-old diabetic male presents to the wound healing center today with for follow up of nonhealing ulcer to the anterior lateral aspect of the right lower leg. Patient states approximately 2-1/2 months ago the corner of the car door caught his leg and tore some skin. The ulcer slowly started to develop and get worse until it got to the state it is now. Denies any purulence or extending reddness surrounding ulcer. Patient finished his antibiotic prescription from Dr. Nicole. He currently denies any feelings of nausea, vomiting, fever, or chills. Progress of Wound: Dressing taken down to wound veil layer this week. The tenth epifix was left in place for a second week. There was no significant drainage or any other signs of infection appreciated. Patient continues to be pleased with his progress with the epifix so far. Patient currently denies any feelings of nausea, vomiting, fever, chills, or shortness of breath. - Physical Exam Vital Signs Temp Pulse Resp BP 97.9 F 81 20 H 152/79 H 07/11/17 08:38 07/11/17 08:38 07/11/17 08:38 07/11/17 08:38 General: Alert, Oriented x3, Cooperative, No apparent distress Extremities: Capillary Refill Less than 3 Seconds, No Calf Tenderness - negative salas and rosales sign, Diminished Peripheral Pulses, Edema - slight lower extremity edema Skin: Ulcer/ Wound Wound Measurements and Assessment WC - Nurse 1 - General Ulcer Measurement Start: 06/27/17 08:32 Freq: Status: Active Protocol: Activity Type Activity Date Activity User E-Sign Co-Sign Detail Recorded Client Recorded Date Recorded By Document 07/11/17 08:38 JS [id number] 07/11/17 08:45 JS 07/11/17 08:38 Wound Center Nurse 1 [Ulcer Assessment] #1 right lateral le trauma ulcer -Combined with other wound No -Current Size (cm) - Length 2.3 -Current Size (cm) - Width 1.5 -Current Size (cm) - Depth 0.2 -Total Square Cm 3.45 -Date of Last Picture (Recall this 07/04/17 field) -Photo Taken No -Epithelialization None Present -Tunneling No -Undermining/Tunneling No -Circular Undermining No -Classification - Thickness Full Thickness without Exposed Support Structure -Exudate Amt Small (1-33%) -Exudate Type Serosanguineous -Wound Margin Distinct, Outline Attached -Granulation Amt Small (1-33%) -Granulation Quality Pale Red -Slough/Fibrin Yes -Necrosis Amt None Present (0 %) -Necrotic Tissue Type Adherent Slough -Structure Exposed N/A -Texture (Olamide-wound Skin Appearance) Not Assessed -Moisture (Olamide-wound Skin Appearance Not Assessed ) -Color (Olamide-wound Skin Appearance) No Abnormality -Temperature (Olamide-wound Skin No Abnormality Appearance) (Pt Warm) -Tenderness on Palpation (Olamide-wound No Skin Appearance) -Ulcer Cleansing Not Cleansed -Foul Odor after Cleansing No -Anesthetic Used 4% Lidocaine Solution [Edema Assessment] -Right Calf (cm) 34.7 -Right Ankle (cm) 25.5 WC - Nurse 2 - General Ulcer CM Notes Start: 06/27/17 08:32 Freq: Status: Active Protocol: Activity Type Activity Date Activity User E-Sign Co-Sign Detail Recorded Client Recorded Date Recorded By Document 07/11/17 09:30 MW [id number] 07/11/17 09:31 MW 07/11/17 09:30 Wound Center Nurse 2 [Procedure/Treatment] #1 right lateral le trauma ulcer -Time 09:30 -Correct Patient Yes -Correct Side, Site, Position Yes -Correct Procedure Yes -Procedure Performed No -Wound/Ulcer Outcome Not Healed -Ulcer Cleansing Not Cleansed -Foul Odor after Cleansing No -Bioengineered Tissue Yes -Type of bioengineered Tissue EPIFIX -Bleeding Controlled with NA -Other EPIFIX LEFT IN PLACE -Treatment Response Procedure Tolerated Well [See Physician Procedure note for Specifics] Pain Scale: 0-10 Numeric [Pain] -Is Patient Pain Free? Yes Musculoskeletal: Tenderness - slight tenderness to ulcer site Neurological: Sensory exam intact to light touch and pain Psych/Mental Status: Normal Affect, Appropriate Debridement Note Post-Debridement Measurements/Treatment WC - Nurse 2 - General Ulcer CM Notes Start: 06/27/17 08:32 Freq: Status: Active Protocol: Activity Type Activity Date Activity User E-Sign Co-Sign Detail Recorded Client Recorded Date Recorded By Document 06/27/17 09:04 MW [id number] 06/27/17 09:10 MW Document 07/04/17 10:15 MW [id number] 07/04/17 10:22 MW Document 07/11/17 09:30 MW [id number] 07/11/17 09:31 MW 06/27/17 07/04/17 07/11/17 09:04 10:15 09:30 Wound Center Nurse 2 #1 right lateral le trauma ulcer -Time 09:08 10:16 09:30 -Correct Patient Yes Yes Yes -Correct Side, Site, Position Yes Yes Yes -Correct Procedure Yes Yes Yes -Procedure Performed Yes Yes No -Type of Procedure Debridement Debridement -Clinical Debridement Subcutaneous Subcutaneous -Post Debridement Size (cm) - Length 2.0 1.8 -Post Debridement Size (cm) - Width 0.9 0.8 -Post Debridement Size (cm) - Depth 0.3 0.3 -Total Square Cm 1.80 1.44 -Wound/Ulcer Outcome Not Healed Not Healed Not Healed -Ulcer Cleansing Rinsed/ Rinsed/ Not Cleansed Irrigated with Irrigated with Saline Saline -Foul Odor after Cleansing No No No -Bioengineered Tissue Yes Yes -Type of bioengineered Tissue EPIFIX EPIFIX EPIFIX -Expiration Date 03/25/22 03/25/22 -Product Lot Number [id number] -Percent Used 100 100 -Saline Lot Number [id number] -Bleeding Controlled with Pressure Pressure NA -Other EPIFIX LEFT IN PLACE -Treatment Response Procedure Procedure Procedure Tolerated Well Tolerated Well Tolerated Well Pain Scale: 0-10 Numeric Is Patient Pain Free? Yes Yes Yes No debridement was completed today Assessment/Plan Assessment: Chronic nonhealing ulcer to right anterior lateral lower leg. DM with neuropathy. PVD. Lower extremity edema. Malnutrition Plan: Patient was again examined and evaluated today. No debridment was performed today. Epifix from last visit was left in place for a second week. Patient received his tenth epi fix last week. Site was evaluated through wound veil layer today, and was then redressed with dry sterile dressing. Epifix is to stay on for the next week and should not be removed. Patient understands this. We will check to see if we can get an extension on his epifix as he has shown weekly progress while using the product. No clinical signs of infection appreciated. Patient is already established with a vascular surgeon and has a follow-up appointment with him in [place]. I again recommended to continue high-protein diet to help optimize wound healing. Patient was educated on all signs and symptoms of local and systemic infection and were instructed to go to the ER immediately should he notice any. All other questions were answered to the patient's satisfaction. Patient will follow-up in clinic in 1 week for further evaluation.
--- NOTE | 2017-07-11 13:06 | PN.PCM_ITS ---
(1) Non-pressure chronic ulcer of right lower leg with fat layer exposed Status: Acute Current Visit: No Code(s): L97.912 - Non-pressure chronic ulcer of unspecified part of right lower leg with fat layer exposed (2) Edema, lower extremity Status: Acute Current Visit: No Code(s): R60.0 - Localized edema (3) Type 2 diabetes mellitus with diabetic polyneuropathy Status: Acute Current Visit: No Code(s): E11.42 - Type 2 diabetes mellitus with diabetic polyneuropathy (4) Malnutrition Status: Suspected Current Visit: No Code(s): E46 - Unspecified protein- calorie malnutrition Type of Wound Date of Service: 07/11/17 Chief Complaint: non healing ulcer to right lower leg with fat layer exposed History of Wound: This 82-year-old diabetic male presents to the wound healing center today with for follow up of nonhealing ulcer to the anterior lateral aspect of the right lower leg. Patient states approximately 2-1/2 months ago the corner of the car door caught his leg and tore some skin. The ulcer slowly started to develop and get worse until it got to the state it is now. Denies any purulence or extending reddness surrounding ulcer. Patient finished his antibiotic prescription from Dr. Nicole. He currently denies any feelings of nausea, vomiting, fever, or chills. Progress of Wound: Dressing taken down to wound veil layer this week. The tenth epifix was left in place for a second week. There was no significant drainage or any other signs of infection appreciated. Patient continues to be pleased with his progress with the epifix so far. Patient currently denies any feelings of nausea, vomiting, fever, chills, or shortness of breath. - Physical Exam Vital Signs Temp Pulse Resp BP 97.9 F 81 20 H 152/79 H 07/11/17 08:38 07/11/17 08:38 07/11/17 08:38 07/11/17 08:38 General: Alert, Oriented x3, Cooperative, No apparent distress Extremities: Capillary Refill Less than 3 Seconds, No Calf Tenderness - negative salas and rosales sign, Diminished Peripheral Pulses, Edema - slight lower extremity edema Skin: Ulcer/ Wound Wound Measurements and Assessment WC - Nurse 1 - General Ulcer Measurement Start: 06/27/17 08:32 Freq: Status: Active Protocol: Activity Type Activity Date Activity User E-Sign Co-Sign Detail Recorded Client Recorded Date Recorded By Document 07/11/17 08:38 JS [id number] 07/11/17 08:45 JS 07/11/17 08:38 Wound Center Nurse 1 [Ulcer Assessment] #1 right lateral le trauma ulcer -Combined with other wound No -Current Size (cm) - Length 2.3 -Current Size (cm) - Width 1.5 -Current Size (cm) - Depth 0.2 -Total Square Cm 3.45 -Date of Last Picture (Recall this 07/04/17 field) -Photo Taken No -Epithelialization None Present -Tunneling No -Undermining/Tunneling No -Circular Undermining No -Classification - Thickness Full Thickness without Exposed Support Structure -Exudate Amt Small (1-33%) -Exudate Type Serosanguineous -Wound Margin Distinct, Outline Attached -Granulation Amt Small (1-33%) -Granulation Quality Pale Red -Slough/Fibrin Yes -Necrosis Amt None Present (0 %) -Necrotic Tissue Type Adherent Slough -Structure Exposed N/A -Texture (Olamide-wound Skin Appearance) Not Assessed -Moisture (Olamide-wound Skin Appearance Not Assessed ) -Color (Olamide-wound Skin Appearance) No Abnormality -Temperature (Olamide-wound Skin No Abnormality Appearance) (Pt Warm) -Tenderness on Palpation (Olamide-wound No Skin Appearance) -Ulcer Cleansing Not Cleansed -Foul Odor after Cleansing No -Anesthetic Used 4% Lidocaine Solution [Edema Assessment] -Right Calf (cm) 34.7 -Right Ankle (cm) 25.5 WC - Nurse 2 - General Ulcer CM Notes Start: 06/27/17 08:32 Freq: Status: Active Protocol: Activity Type Activity Date Activity User E-Sign Co-Sign Detail Recorded Client Recorded Date Recorded By Document 07/11/17 09:30 MW [id number] 07/11/17 09:31 MW 07/11/17 09:30 Wound Center Nurse 2 [Procedure/Treatment] #1 right lateral le trauma ulcer -Time 09:30 -Correct Patient Yes -Correct Side, Site, Position Yes -Correct Procedure Yes -Procedure Performed No -Wound/Ulcer Outcome Not Healed -Ulcer Cleansing Not Cleansed -Foul Odor after Cleansing No -Bioengineered Tissue Yes -Type of bioengineered Tissue EPIFIX -Bleeding Controlled with NA -Other EPIFIX LEFT IN PLACE -Treatment Response Procedure Tolerated Well [See Physician Procedure note for Specifics] Pain Scale: 0-10 Numeric [Pain] -Is Patient Pain Free? Yes Musculoskeletal: Tenderness - slight tenderness to ulcer site Neurological: Sensory exam intact to light touch and pain Psych/Mental Status: Normal Affect, Appropriate Debridement Note Post-Debridement Measurements/Treatment WC - Nurse 2 - General Ulcer CM Notes Start: 06/27/17 08:32 Freq: Status: Active Protocol: Activity Type Activity Date Activity User E-Sign Co-Sign Detail Recorded Client Recorded Date Recorded By Document 06/27/17 09:04 MW [id number] 06/27/17 09:10 MW Document 07/04/17 10:15 MW [id number] 07/04/17 10:22 MW Document 07/11/17 09:30 MW [id number] 07/11/17 09:31 MW 06/27/17 07/04/17 07/11/17 09:04 10:15 09:30 Wound Center Nurse 2 #1 right lateral le trauma ulcer -Time 09:08 10:16 09:30 -Correct Patient Yes Yes Yes -Correct Side, Site, Position Yes Yes Yes -Correct Procedure Yes Yes Yes -Procedure Performed Yes Yes No -Type of Procedure Debridement Debridement -Clinical Debridement Subcutaneous Subcutaneous -Post Debridement Size (cm) - Length 2.0 1.8 -Post Debridement Size (cm) - Width 0.9 0.8 -Post Debridement Size (cm) - Depth 0.3 0.3 -Total Square Cm 1.80 1.44 -Wound/Ulcer Outcome Not Healed Not Healed Not Healed -Ulcer Cleansing Rinsed/ Rinsed/ Not Cleansed Irrigated with Irrigated with Saline Saline -Foul Odor after Cleansing No No No -Bioengineered Tissue Yes Yes -Type of bioengineered Tissue EPIFIX EPIFIX EPIFIX -Expiration Date 03/25/22 03/25/22 -Product Lot Number [id number] -Percent Used 100 100 -Saline Lot Number [id number] -Bleeding Controlled with Pressure Pressure NA -Other EPIFIX LEFT IN PLACE -Treatment Response Procedure Procedure Procedure Tolerated Well Tolerated Well Tolerated Well Pain Scale: 0-10 Numeric Is Patient Pain Free? Yes Yes Yes No debridement was completed today Assessment/Plan Assessment: Chronic nonhealing ulcer to right anterior lateral lower leg. DM with neuropathy. PVD. Lower extremity edema. Malnutrition Plan: Patient was again examined and evaluated today. No debridment was performed today. Epifix from last visit was left in place for a second week. Patient received his tenth epi fix last week. Site was evaluated through wound veil layer today, and was then redressed with dry sterile dressing. Epifix is to stay on for the next week and should not be removed. Patient understands this. We will check to see if we can get an extension on his epifix as he has shown weekly progress while using the product. No clinical signs of infection appreciated. Patient is already established with a vascular surgeon and has a follow-up appointment with him in [place]. I again recommended to continue high- protein diet to help optimize wound healing. Patient was educated on all signs and symptoms of local and systemic infection and were instructed to go to the ER immediately should he notice any. All other questions were answered to the patient's satisfaction. Patient will follow-up in clinic in 1 week for further evaluation.
[2017-07-18 08:43] VITALS: BP 149/63; PULSE 75; RESP 18; TEMP 36.4; BMI 32.0
--- NOTE | 2017-07-18 09:51 | PCM.WC.PN ---
(1) Non-pressure chronic ulcer of right lower leg with fat layer exposed Status: Acute Current Visit: No Code(s): L97.912 - Non-pressure chronic ulcer of unspecified part of right lower leg with fat layer exposed (2) Edema, lower extremity Status: Acute Current Visit: No Code(s): R60.0 - Localized edema (3) Type 2 diabetes mellitus with diabetic polyneuropathy Status: Acute Current Visit: No Code(s): E11.42 - Type 2 diabetes mellitus with diabetic polyneuropathy (4) Malnutrition Status: Suspected Current Visit: No Code(s): E46 - Unspecified protein-calorie malnutrition Type of Wound Date of Service: 07/18/17 Chief Complaint: non healing ulcer to right lower leg with fat layer exposed History of Wound: This 82-year-old diabetic male presents to the wound healing center today with for follow up of nonhealing ulcer to the anterior lateral aspect of the right lower leg. Patient states approximately 2-1/2 months ago the corner of the car door caught his leg and tore some skin. The ulcer slowly started to develop and get worse until it got to the state it is now. Denies any purulence or extending reddness surrounding ulcer. Patient finished his antibiotic prescription from Dr. Nicole. He currently denies any feelings of nausea, vomiting, fever, or chills. Progress of Wound: Patient presents today after his tenth epifix was left in place for a second week. There was no significant drainage or any other signs of infection appreciated. Patient continues to be pleased with his progress with the epifix so far. Patient currently denies any feelings of nausea, vomiting, fever, chills, or shortness of breath. - Physical Exam Vital Signs Temp Pulse Resp BP 97.5 F L 75 18 149/63 H 07/18/17 08:43 07/18/17 08:43 07/18/17 08:43 07/18/17 08:43 General: Alert, Oriented x3, Cooperative, No apparent distress Extremities: Capillary Refill Less than 3 Seconds, No Calf Tenderness - negative salas and rosales sign, Diminished Peripheral Pulses, Edema - slight lower extremity edema noted Skin: Ulcer/ Wound - Chronic ulcer noted to the right proximal anterior lateral lower leg with measurements noted below. Ulcer continues to show improvement in both size and depth over a majority of the ulcer site. A significant improvement has been noted since measurements were taken 2 weeks ago. The ulcer base is a mixture of granular tissue, adherent slough, fibrin, with a slight hyperkeratotic rim. There continues to be no surrounding cellulitis, no increased warmth, no purulence, no malodor, no probing to bone, no tracking, and no undermining. Wound Measurements and Assessment WC - Nurse 1 - General Ulcer Measurement Start: 06/27/17 08:32 Freq: Status: Active Protocol: Activity Type Activity Date Activity User E-Sign Co-Sign Detail Recorded Client Recorded Date Recorded By Document 07/18/17 08:43 TN [id number] 07/18/17 08:52 TN 07/18/17 08:43 Wound Center Nurse 1 [Ulcer Assessment] #1 right lateral le trauma ulcer -Combined with other wound No -Current Size (cm) - Length 2.3 -Current Size (cm) - Width 1.2 -Current Size (cm) - Depth 0.1 -Total Square Cm 2.76 -Photo Taken No -Epithelialization None Present -Tunneling No -Undermining/Tunneling No -Circular Undermining No -Classification - Thickness Full Thickness without Exposed Support Structure -Change in Wound Grade/Stage No Query Text:If change please identify the Stage/Grade in the comment (ie. S2 G3) -Exudate Amt None Present (0 %) -Wound Margin Indistinct, Non -Visible -Granulation Amt None Present (0 %) -Slough/Fibrin Yes -Necrosis Amt None Present (0 %) -Necrotic Tissue Type Adherent Slough -Structure Exposed None/Limited to Skin Breakdown -Texture (Olamide-wound Skin Appearance) Assessed Scarring -Moisture (Olamide-wound Skin Appearance Assessed ) Dry/Scaly -Color (Olamide-wound Skin Appearance) No Abnormality Assessed -Temperature (Olamide-wound Skin No Abnormality Appearance) (Pt Warm) -Tenderness on Palpation (Olamide-wound No Skin Appearance) -Ulcer Cleansing Rinsed/ Irrigated with Saline -Foul Odor after Cleansing No -Anesthetic Used 5% Lidocaine Gel [Edema Assessment] -Lower Limb Edema Present No -Right Calf (cm) 37.1 -Right Ankle (cm) 25.7 WC - Nurse 2 - General Ulcer CM Notes Start: 06/27/17 08:32 Freq: Status: Active Protocol: Activity Type Activity Date Activity User E-Sign Co-Sign Detail Recorded Client Recorded Date Recorded By Document 07/18/17 09:07 MW [id number] 07/18/17 09:10 MW 07/18/17 09:07 Wound Center Nurse 2 [Procedure/Treatment] #1 right lateral le trauma ulcer -Time 09:08 -Correct Patient Yes -Correct Side, Site, Position Yes -Correct Procedure Yes -Procedure Performed Yes -Type of Procedure Debridement -Clinical Debridement Subcutaneous -Post Debridement Size (cm) - Length 1.5 -Post Debridement Size (cm) - Width 1.1 -Post Debridement Size (cm) - Depth 0.3 -Total Square Cm 1.65 -Wound/Ulcer Outcome Not Healed -Ulcer Cleansing Rinsed/ Irrigated with Saline -Foul Odor after Cleansing No -Bioengineered Tissue No -Bleeding Controlled with Pressure -Treatment Response Procedure Tolerated Well [See Physician Procedure note for Specifics] Pain Scale: 0-10 Numeric [Pain] -Is Patient Pain Free? Yes Musculoskeletal: Tenderness - Slight tenderness appreciated ulcer site Neurological: Sensory exam intact to light touch and pain Psych/Mental Status: Normal Affect, Appropriate Debridement Note Post-Debridement Measurements/Treatment WC - Nurse 2 - General Ulcer CM Notes Start: 06/27/17 08:32 Freq: Status: Active Protocol: Activity Type Activity Date Activity User E-Sign Co-Sign Detail Recorded Client Recorded Date Recorded By Document 06/27/17 09:04 MW [id number] 06/27/17 09:10 MW Document 07/04/17 10:15 MW [id number] 07/04/17 10:22 MW Document 07/11/17 09:30 MW [id number] 07/11/17 09:31 MW Document 07/18/17 09:07 MW [id number] 07/18/17 09:10 MW 06/27/17 07/04/17 07/11/17 09:04 10:15 09:30 Wound Center Nurse 2 #1 right lateral le trauma ulcer -Time 09:08 10:16 09:30 -Correct Patient Yes Yes Yes -Correct Side, Site, Position Yes Yes Yes -Correct Procedure Yes Yes Yes -Procedure Performed Yes Yes No -Type of Procedure Debridement Debridement -Clinical Debridement Subcutaneous Subcutaneous -Post Debridement Size (cm) - Length 2.0 1.8 -Post Debridement Size (cm) - Width 0.9 0.8 -Post Debridement Size (cm) - Depth 0.3 0.3 -Total Square Cm 1.80 1.44 -Wound/Ulcer Outcome Not Healed Not Healed Not Healed -Ulcer Cleansing Rinsed/ Rinsed/ Not Cleansed Irrigated with Irrigated with Saline Saline -Foul Odor after Cleansing No No No -Bioengineered Tissue Yes Yes -Type of bioengineered Tissue EPIFIX EPIFIX EPIFIX -Expiration Date 03/25/22 03/25/22 -Product Lot Number [id number] -Percent Used 100 100 -Saline Lot Number [id number] -Bleeding Controlled with Pressure Pressure NA -Other EPIFIX LEFT IN PLACE -Treatment Response Procedure Procedure Procedure Tolerated Well Tolerated Well Tolerated Well Pain Scale: 0-10 Numeric Is Patient Pain Free? Yes Yes Yes 07/18/17 09:07 Wound Center Nurse 2 #1 right lateral le trauma ulcer -Time 09:08 -Correct Patient Yes -Correct Side, Site, Position Yes -Correct Procedure Yes -Procedure Performed Yes -Type of Procedure Debridement -Clinical Debridement Subcutaneous -Post Debridement Size (cm) - Length 1.5 -Post Debridement Size (cm) - Width 1.1 -Post Debridement Size (cm) - Depth 0.3 -Total Square Cm 1.65 -Wound/Ulcer Outcome Not Healed -Ulcer Cleansing Rinsed/ Irrigated with Saline -Foul Odor after Cleansing No -Bioengineered Tissue No -Type of bioengineered Tissue -Expiration Date -Product Lot Number -Percent Used -Saline Lot Number -Bleeding Controlled with Pressure -Other -Treatment Response Procedure Tolerated Well Pain Scale: 0-10 Numeric Is Patient Pain Free? Yes Wound debrided: Right anterior lateral lower leg Laterality: Right Wound Grade/Stage: 2 Type of Debridement: Excisional debridement Anesthesia Used: 4% Lidocaine Solution Depth: in the subcutaneous layer Percentage of wound debrided: 100 Instrument Used: 5mm curette Tissue Removed: Adherent slough, fibrin, hyperkeratotic tissue Severity: Fat Layer Exposed Amount of bleeding with debridement: Mild Bleeding Controlled with: Pressure Patient tolerated procedure well Assessment/Plan Assessment: Chronic nonhealing ulcer to right anterior lateral lower leg. DM with neuropathy. PVD. Lower extremity edema. Malnutrition Plan: Patient was again examined and evaluated today. Subcutaneous debridement was performed as noted in the clinical panel. Significant improvement was noted this week. Patient has used 10 epifix up to this point. Today we dressed the ulcer with slightly moistened tai, followed by a dry sterile dressing. Patient is to have dressings changed in this manner every other day. We will check to see if we can get an extension on his epifix as he has shown weekly progress while using the product, should we see no progress using the tai. No clinical signs of infection appreciated. Patient is already established with a vascular surgeon and has a follow-up appointment with him in [place]. I again recommended to continue high-protein diet to help optimize wound healing. Patient was educated on all signs and symptoms of local and systemic infection and were instructed to go to the ER immediately should he notice any. All other questions were answered to the patient's satisfaction. Patient will follow-up in clinic in 1 week for further evaluation.
--- NOTE | 2017-07-18 09:59 | PN.PCM_ITS ---
(1) Non-pressure chronic ulcer of right lower leg with fat layer exposed Status: Acute Current Visit: No Code(s): L97.912 - Non-pressure chronic ulcer of unspecified part of right lower leg with fat layer exposed (2) Edema, lower extremity Status: Acute Current Visit: No Code(s): R60.0 - Localized edema (3) Type 2 diabetes mellitus with diabetic polyneuropathy Status: Acute Current Visit: No Code(s): E11.42 - Type 2 diabetes mellitus with diabetic polyneuropathy (4) Malnutrition Status: Suspected Current Visit: No Code(s): E46 - Unspecified protein- calorie malnutrition Type of Wound Date of Service: 07/18/17 Chief Complaint: non healing ulcer to right lower leg with fat layer exposed History of Wound: This 82-year-old diabetic male presents to the wound healing center today with for follow up of nonhealing ulcer to the anterior lateral aspect of the right lower leg. Patient states approximately 2-1/2 months ago the corner of the car door caught his leg and tore some skin. The ulcer slowly started to develop and get worse until it got to the state it is now. Denies any purulence or extending reddness surrounding ulcer. Patient finished his antibiotic prescription from Dr. Nicole. He currently denies any feelings of nausea, vomiting, fever, or chills. Progress of Wound: Patient presents today after his tenth epifix was left in place for a second week. There was no significant drainage or any other signs of infection appreciated. Patient continues to be pleased with his progress with the epifix so far. Patient currently denies any feelings of nausea, vomiting, fever, chills, or shortness of breath. - Physical Exam Vital Signs Temp Pulse Resp BP 97.5 F L 75 18 149/63 H 07/18/17 08:43 07/18/17 08:43 07/18/17 08:43 07/18/17 08:43 General: Alert, Oriented x3, Cooperative, No apparent distress Extremities: Capillary Refill Less than 3 Seconds, No Calf Tenderness - negative salas and rosales sign, Diminished Peripheral Pulses, Edema - slight lower extremity edema noted Skin: Ulcer/ Wound - Chronic ulcer noted to the right proximal anterior lateral lower leg with measurements noted below. Ulcer continues to show improvement in both size and depth over a majority of the ulcer site. A significant improvement has been noted since measurements were taken 2 weeks ago. The ulcer base is a mixture of granular tissue, adherent slough, fibrin, with a slight hyperkeratotic rim. There continues to be no surrounding cellulitis, no increased warmth, no purulence, no malodor, no probing to bone, no tracking, and no undermining. Wound Measurements and Assessment WC - Nurse 1 - General Ulcer Measurement Start: 06/27/17 08:32 Freq: Status: Active Protocol: Activity Type Activity Date Activity User E-Sign Co-Sign Detail Recorded Client Recorded Date Recorded By Document 07/18/17 08:43 TN [id number] 07/18/17 08:52 TN 07/18/17 08:43 Wound Center Nurse 1 [Ulcer Assessment] #1 right lateral le trauma ulcer -Combined with other wound No -Current Size (cm) - Length 2.3 -Current Size (cm) - Width 1.2 -Current Size (cm) - Depth 0.1 -Total Square Cm 2.76 -Photo Taken No -Epithelialization None Present -Tunneling No -Undermining/Tunneling No -Circular Undermining No -Classification - Thickness Full Thickness without Exposed Support Structure -Change in Wound Grade/Stage No Query Text:If change please identify the Stage/Grade in the comment (ie. S2 G3) -Exudate Amt None Present (0 %) -Wound Margin Indistinct, Non -Visible -Granulation Amt None Present (0 %) -Slough/Fibrin Yes -Necrosis Amt None Present (0 %) -Necrotic Tissue Type Adherent Slough -Structure Exposed None/Limited to Skin Breakdown -Texture (Olamide-wound Skin Appearance) Assessed Scarring -Moisture (Olamide-wound Skin Appearance Assessed ) Dry/Scaly -Color (Olamide-wound Skin Appearance) No Abnormality Assessed -Temperature (Olamide-wound Skin No Abnormality Appearance) (Pt Warm) -Tenderness on Palpation (Olamide-wound No Skin Appearance) -Ulcer Cleansing Rinsed/ Irrigated with Saline -Foul Odor after Cleansing No -Anesthetic Used 5% Lidocaine Gel [Edema Assessment] -Lower Limb Edema Present No -Right Calf (cm) 37.1 -Right Ankle (cm) 25.7 WC - Nurse 2 - General Ulcer CM Notes Start: 06/27/17 08:32 Freq: Status: Active Protocol: Activity Type Activity Date Activity User E-Sign Co-Sign Detail Recorded Client Recorded Date Recorded By Document 07/18/17 09:07 MW [id number] 07/18/17 09:10 MW 07/18/17 09:07 Wound Center Nurse 2 [Procedure/Treatment] #1 right lateral le trauma ulcer -Time 09:08 -Correct Patient Yes -Correct Side, Site, Position Yes -Correct Procedure Yes -Procedure Performed Yes -Type of Procedure Debridement -Clinical Debridement Subcutaneous -Post Debridement Size (cm) - Length 1.5 -Post Debridement Size (cm) - Width 1.1 -Post Debridement Size (cm) - Depth 0.3 -Total Square Cm 1.65 -Wound/Ulcer Outcome Not Healed -Ulcer Cleansing Rinsed/ Irrigated with Saline -Foul Odor after Cleansing No -Bioengineered Tissue No -Bleeding Controlled with Pressure -Treatment Response Procedure Tolerated Well [See Physician Procedure note for Specifics] Pain Scale: 0-10 Numeric [Pain] -Is Patient Pain Free? Yes Musculoskeletal: Tenderness - Slight tenderness appreciated ulcer site Neurological: Sensory exam intact to light touch and pain Psych/Mental Status: Normal Affect, Appropriate Debridement Note Post-Debridement Measurements/Treatment WC - Nurse 2 - General Ulcer CM Notes Start: 06/27/17 08:32 Freq: Status: Active Protocol: Activity Type Activity Date Activity User E-Sign Co-Sign Detail Recorded Client Recorded Date Recorded By Document 06/27/17 09:04 MW [id number] 06/27/17 09:10 MW Document 07/04/17 10:15 MW [id number] 07/04/17 10:22 MW Document 07/11/17 09:30 MW [id number] 07/11/17 09:31 MW Document 07/18/17 09:07 MW [id number] 07/18/17 09:10 MW 06/27/17 07/04/17 07/11/17 09:04 10:15 09:30 Wound Center Nurse 2 #1 right lateral le trauma ulcer -Time 09:08 10:16 09:30 -Correct Patient Yes Yes Yes -Correct Side, Site, Position Yes Yes Yes -Correct Procedure Yes Yes Yes -Procedure Performed Yes Yes No -Type of Procedure Debridement Debridement -Clinical Debridement Subcutaneous Subcutaneous -Post Debridement Size (cm) - Length 2.0 1.8 -Post Debridement Size (cm) - Width 0.9 0.8 -Post Debridement Size (cm) - Depth 0.3 0.3 -Total Square Cm 1.80 1.44 -Wound/Ulcer Outcome Not Healed Not Healed Not Healed -Ulcer Cleansing Rinsed/ Rinsed/ Not Cleansed Irrigated with Irrigated with Saline Saline -Foul Odor after Cleansing No No No -Bioengineered Tissue Yes Yes -Type of bioengineered Tissue EPIFIX EPIFIX EPIFIX -Expiration Date 03/25/22 03/25/22 -Product Lot Number [id number] -Percent Used 100 100 -Saline Lot Number [id number] -Bleeding Controlled with Pressure Pressure NA -Other EPIFIX LEFT IN PLACE -Treatment Response Procedure Procedure Procedure Tolerated Well Tolerated Well Tolerated Well Pain Scale: 0-10 Numeric Is Patient Pain Free? Yes Yes Yes 07/18/17 09:07 Wound Center Nurse 2 #1 right lateral le trauma ulcer -Time 09:08 -Correct Patient Yes -Correct Side, Site, Position Yes -Correct Procedure Yes -Procedure Performed Yes -Type of Procedure Debridement -Clinical Debridement Subcutaneous -Post Debridement Size (cm) - Length 1.5 -Post Debridement Size (cm) - Width 1.1 -Post Debridement Size (cm) - Depth 0.3 -Total Square Cm 1.65 -Wound/Ulcer Outcome Not Healed -Ulcer Cleansing Rinsed/ Irrigated with Saline -Foul Odor after Cleansing No -Bioengineered Tissue No -Type of bioengineered Tissue -Expiration Date -Product Lot Number -Percent Used -Saline Lot Number -Bleeding Controlled with Pressure -Other -Treatment Response Procedure Tolerated Well Pain Scale: 0-10 Numeric Is Patient Pain Free? Yes Wound debrided: Right anterior lateral lower leg Laterality: Right Wound Grade/Stage: 2 Type of Debridement: Excisional debridement Anesthesia Used: 4% Lidocaine Solution Depth: in the subcutaneous layer Percentage of wound debrided: 100 Instrument Used: 5mm curette Tissue Removed: Adherent slough, fibrin, hyperkeratotic tissue Severity: Fat Layer Exposed Amount of bleeding with debridement: Mild Bleeding Controlled with: Pressure Patient tolerated procedure well Assessment/Plan Assessment: Chronic nonhealing ulcer to right anterior lateral lower leg. DM with neuropathy. PVD. Lower extremity edema. Malnutrition Plan: Patient was again examined and evaluated today. Subcutaneous debridement was performed as noted in the clinical panel. Significant improvement was noted this week. Patient has used 10 epifix up to this point. Today we dressed the ulcer with slightly moistened tai, followed by a dry sterile dressing. Patient is to have dressings changed in this manner every other day. We will check to see if we can get an extension on his epifix as he has shown weekly progress while using the product, should we see no progress using the tai. No clinical signs of infection appreciated. Patient is already established with a vascular surgeon and has a follow-up appointment with him in [place]. I again recommended to continue high-protein diet to help optimize wound healing. Patient was educated on all signs and symptoms of local and systemic infection and were instructed to go to the ER immediately should he notice any. All other questions were answered to the patient's satisfaction. Patient will follow-up in clinic in 1 week for further evaluation.
== END 2017-07-22 23:59 ==
LOC: WC 08:30
PROVIDERS: Family Provider Family Medicine; PCP Family Medicine; Visit Provider Podiatrist
DX: E11.622 Type 2 diabetes mellitus with other skin ulcer (principal); E11.42 Type 2 diabetes mellitus with diabetic polyneuropathy; R60.0 Localized edema; L97.822 Non-pressure chronic ulcer of other part of left lower leg with fat layer exposed
CPT/HCPCS: 11042; 15271; 99212; Q4131; G0463

== ENCOUNTER 2017-08-15 09:30 | Outpatient (RCR) | payer MEDICARE, OTHER, SELFPAY ==
[2017-07-23 00:39] VITALS: BP 149/72; PULSE 75; RESP 18; TEMP 36.4; BMI 32.0
[2017-07-25 09:17] VITALS: BP 138/66; PULSE 73; RESP 18; TEMP 36.6; BMI 32.0
--- NOTE | 2017-07-25 13:22 | PN.PCM_ITS ---
(1) Malnutrition Status: Suspected Current Visit: No Code(s): E46 - Unspecified protein- calorie malnutrition (2) Edema, lower extremity Status: Acute Current Visit: No Code(s): R60.0 - Localized edema (3) PVD (peripheral vascular disease) Status: Suspected Current Visit: No Code(s): I73.9 - Peripheral vascular disease, unspecified (4) Type 2 diabetes mellitus with diabetic polyneuropathy Status: Acute Current Visit: No Code(s): E11.42 - Type 2 diabetes mellitus with diabetic polyneuropathy (5) Non-pressure chronic ulcer of right lower leg with fat layer exposed Status: Acute Current Visit: No Code(s): L97.912 - Non-pressure chronic ulcer of unspecified part of right lower leg with fat layer exposed Type of Wound Date of Service: 07/25/17 Chief Complaint: non healing ulcer to right lower leg with fat layer exposed History of Wound: This 82-year-old diabetic male presents to the wound healing center today with for follow up of nonhealing ulcer to the anterior lateral aspect of the right lower leg. Patient states approximately 2-1/2 months ago the corner of the car door caught his leg and tore some skin. The ulcer slowly started to develop and get worse until it got to the state it is now. Denies any purulence or extending reddness surrounding ulcer. Patient finished his antibiotic prescription from Dr. Nicole. He currently denies any feelings of nausea, vomiting, fever, or chills. Progress of Wound: Patient presents today after having tai applied to his ulcer every other day for the last week. There was no significant drainage or any other signs of infection appreciated. Patient currently denies any feelings of nausea, vomiting, fever, chills, or shortness of breath. - Physical Exam Vital Signs Temp Pulse Resp BP 97.8 F 73 18 138/66 H 07/25/17 09:17 07/25/17 09:17 07/25/17 09:17 07/25/17 09:17 General: Alert, Oriented x3, Cooperative, No apparent distress Extremities: Capillary Refill Less than 3 Seconds, No Calf Tenderness - Negative Arslan and Raines sign, Diminished Peripheral Pulses, Edema - Slight lower extremity edema Skin: Ulcer/ Wound - Chronic ulcer noted in the right proximal anterior lateral lower leg with measurements noted below. Ulcer continues to show improvement in size and depth over majority of the ulcer site. Improvement has been noted again. The base of the ulcer is majority granular tissue as well as adherent slough, fibrin, and slight hyperkeratotic rim. There continues to be no extending cellulitis, no increase in warmth, no purulence, no malodor, no probing to bone, no tracking and no undermining. Wound Measurements and Assessment WC - Nurse 1 - General Ulcer Measurement Start: 07/25/17 09:17 Freq: Status: Active Protocol: Activity Type Activity Date Activity User E-Sign Co-Sign Detail Recorded Client Recorded Date Recorded By Document 07/25/17 09:17 TM [id number] 07/25/17 09:19 TM 07/25/17 09:17 Wound Center Nurse 1 [Ulcer Assessment] #1 right lateral le trauma ulcer -Combined with other wound No -Current Size (cm) - Length 1.5 -Current Size (cm) - Width 1.0 -Current Size (cm) - Depth 0.2 -Total Square Cm 1.50 -Photo Taken No -Epithelialization Small 1-33% -Tunneling No -Undermining/Tunneling No -Circular Undermining No -Classification - Thickness Full Thickness without Exposed Support Structure -Exudate Amt Small (1-33%) -Exudate Type Serosanguineous -Wound Margin Distinct, Outline Attached -Granulation Amt Large (67-100%) -Granulation Quality Red -Slough/Fibrin Yes -Necrosis Amt Small (1-33%) -Necrotic Tissue Type Adherent Slough -Structure Exposed Fascia Fat Layer Exposed -Texture (Olamide-wound Skin Appearance) No Abnormality -Moisture (Olamide-wound Skin Appearance No Abnormality ) -Color (Olamide-wound Skin Appearance) Erythema Hemosiderin Staining -Temperature (Olamide-wound Skin No Abnormality Appearance) (Pt Warm) -Tenderness on Palpation (Olamide-wound No Skin Appearance) -Ulcer Cleansing Rinsed/ Irrigated with Saline -Foul Odor after Cleansing No -Anesthetic Used 5% Lidocaine Gel [Edema Assessment] -Lower Limb Edema Present Yes -Right Calf (cm) 36.5 -Right Ankle (cm) 25.5 WC - Nurse 2 - General Ulcer CM Notes Start: 07/25/17 09:17 Freq: Status: Active Protocol: Activity Type Activity Date Activity User E-Sign Co-Sign Detail Recorded Client Recorded Date Recorded By Document 07/25/17 09:32 MW [id number] 07/25/17 09:33 MW 07/25/17 09:32 Wound Center Nurse 2 [Procedure/Treatment] #1 right lateral le trauma ulcer -Time 09:32 -Correct Patient Yes -Correct Side, Site, Position Yes -Correct Procedure Yes -Procedure Performed Yes -Type of Procedure Debridement -Clinical Debridement Subcutaneous -Post Debridement Size (cm) - Length 0.9 -Post Debridement Size (cm) - Width 0.9 -Post Debridement Size (cm) - Depth 0.3 -Total Square Cm 0.81 -Wound/Ulcer Outcome Not Healed -Ulcer Cleansing Rinsed/ Irrigated with Saline -Foul Odor after Cleansing No -Bioengineered Tissue No -Bleeding Controlled with Pressure -Treatment Response Procedure Tolerated Well [See Physician Procedure note for Specifics] Pain Scale: 0-10 Numeric [Pain] -Is Patient Pain Free? Yes Musculoskeletal: Tenderness - Slight tenderness to ulcer site Neurological: Sensory exam intact to light touch and pain Psych/Mental Status: Normal Affect, Appropriate Debridement Note Post-Debridement Measurements/Treatment WC - Nurse 2 - General Ulcer CM Notes Start: 07/25/17 09:17 Freq: Status: Active Protocol: Activity Type Activity Date Activity User E-Sign Co-Sign Detail Recorded Client Recorded Date Recorded By Document 07/25/17 09:32 MW [id number] 07/25/17 09:33 MW 07/25/17 09:32 Wound Center Nurse 2 #1 right lateral le trauma ulcer -Time 09:32 -Correct Patient Yes -Correct Side, Site, Position Yes -Correct Procedure Yes -Procedure Performed Yes -Type of Procedure Debridement -Clinical Debridement Subcutaneous -Post Debridement Size (cm) - Length 0.9 -Post Debridement Size (cm) - Width 0.9 -Post Debridement Size (cm) - Depth 0.3 -Total Square Cm 0.81 -Wound/Ulcer Outcome Not Healed -Ulcer Cleansing Rinsed/ Irrigated with Saline -Foul Odor after Cleansing No -Bioengineered Tissue No -Bleeding Controlled with Pressure -Treatment Response Procedure Tolerated Well Pain Scale: 0-10 Numeric Is Patient Pain Free? Yes Wound debrided: Right anterior lateral lower leg Laterality: Right Wound Grade/Stage: 2 Type of Debridement: Excisional debridement Anesthesia Used: 4% Lidocaine Solution Depth: in the subcutaneous layer Percentage of wound debrided: 100 Instrument Used: 5mm curette Tissue Removed: Adherent slough, fibrin, hyperkeratotic tissue Severity: Fat Layer Exposed Amount of bleeding with debridement: Mild Patient tolerated procedure well Assessment/Plan Assessment: Chronic nonhealing ulcer to right anterior lateral lower leg. DM with neuropathy. PVD. Lower extremity edema. Malnutrition Plan: Patient was again examined and evaluated today. Subcutaneous debridement was performed as noted in the clinical panel. Improvement noted again this week. Today we dressed the ulcer with slightly moistened tai, followed by a dry sterile dressing. Patient is to have dressings changed in this manner every other day again for the next week. No clinical signs of infection appreciated. Patient is already established with a vascular surgeon and has a follow-up appointment with him in [place]. I again recommended to continue high-protein diet to help optimize wound healing. Patient was educated on all signs and symptoms of local and systemic infection and were instructed to go to the ER immediately should he notice any. All other questions were answered to the patient's satisfaction. Patient will follow-up in clinic in 1 week for further evaluation.
[2017-08-01 09:30] VITALS: BP 129/64; PULSE 84; RESP 18; TEMP 36.6; BMI 32.0
--- NOTE | 2017-08-01 09:48 | PCM.WC.PN ---
(1) Malnutrition Status: Suspected Current Visit: No Code(s): E46 - Unspecified protein-calorie malnutrition (2) Edema, lower extremity Status: Acute Current Visit: No Code(s): R60.0 - Localized edema (3) PVD (peripheral vascular disease) Status: Suspected Current Visit: No Code(s): I73.9 - Peripheral vascular disease, unspecified (4) Type 2 diabetes mellitus with diabetic polyneuropathy Status: Acute Current Visit: No Code(s): E11.42 - Type 2 diabetes mellitus with diabetic polyneuropathy (5) Non-pressure chronic ulcer of right lower leg with fat layer exposed Status: Acute Current Visit: No Code(s): L97.912 - Non-pressure chronic ulcer of unspecified part of right lower leg with fat layer exposed Type of Wound Date of Service: 08/01/17 Chief Complaint: non healing ulcer to right lower leg with fat layer exposed History of Wound: This 82-year-old diabetic male presents to the wound healing center today with for follow up of nonhealing ulcer to the anterior lateral aspect of the right lower leg. Patient states approximately 2-1/2 months ago the corner of the car door caught his leg and tore some skin. The ulcer slowly started to develop and get worse until it got to the state it is now. Denies any purulence or extending reddness surrounding ulcer. Patient finished his antibiotic prescription from Dr. Nicole. He currently denies any feelings of nausea, vomiting, fever, or chills. Progress of Wound: Patient presents today after second week of having tai applied to his ulcer every other day for the last week. There was no significant drainage or any other signs of infection appreciated. He said the skin around the area itched and has some slight excoriation noted. Patient currently denies any feelings of nausea, vomiting, fever, chills, or shortness of breath. - Physical Exam Vital Signs Temp Pulse Resp BP 97.8 F 84 18 129/64 H 08/01/17 09:30 08/01/17 09:30 08/01/17 09:30 08/01/17 09:30 General: Alert, Oriented x3, Cooperative, No apparent distress Extremities: Capillary Refill Less than 3 Seconds, No Calf Tenderness - Negative Arslan and Raines sign, Diminished Peripheral Pulses, Edema - Slight lower extremity edema Skin: Ulcer/ Wound - Ulcer to the right proximal anterior lateral lower leg with measurements noted below. Ulcer has shown another improvement in both size and depth this week. The base of the ulcer is majority of granular tissue as well as adherent slough, fibrin and some slight hyperkeratotic tissue. There continues to be no extending cellulitis, no increased warmth, no purulence, no malodor, no probing to bone, no tracking, and no undermining. I have Wound Measurements and Assessment WC - Nurse 1 - General Ulcer Measurement Start: 07/25/17 09:17 Freq: Status: Active Protocol: Activity Type Activity Date Activity User E-Sign Co-Sign Detail Recorded Client Recorded Date Recorded By Document 08/01/17 09:30 [id number] 08/01/17 09:32 08/01/17 09:30 Wound Center Nurse 1 [Ulcer Assessment] #1 right lateral le trauma ulcer -Combined with other wound No -Current Size (cm) - Length 0.9 -Current Size (cm) - Width 0.4 -Current Size (cm) - Depth 0.2 -Total Square Cm 0.36 -Photo Taken No -Epithelialization Small 1-33% -Tunneling No -Undermining/Tunneling No -Circular Undermining No -Classification - Thickness Full Thickness without Exposed Support Structure -Exudate Amt Small (1-33%) -Exudate Type Serosanguineous -Wound Margin Distinct, Outline Attached -Granulation Amt Large (67-100%) -Granulation Quality Pale [place] -Slough/Fibrin Yes -Necrosis Amt Small (1-33%) -Necrotic Tissue Type Adherent Slough -Structure Exposed Fascia Fat Layer Exposed -Texture (Olamide-wound Skin Appearance) Localized Edema Scarring -Moisture (Olamide-wound Skin Appearance Dry/Scaly ) -Color (Olamide-wound Skin Appearance) Erythema -Temperature (Olamide-wound Skin No Abnormality Appearance) (Pt Warm) -Tenderness on Palpation (Olamide-wound No Skin Appearance) -Ulcer Cleansing Rinsed/ Irrigated with Saline -Foul Odor after Cleansing No -Anesthetic Used 5% Lidocaine Gel [Edema Assessment] -Lower Limb Edema Present Yes -Right Calf (cm) 32.0 -Right Ankle (cm) 26.0 -Left Calf (cm) 36.0 -Left Ankle (cm) 27.0 WC - Nurse 2 - General Ulcer CM Notes Start: 05/03/18 09:17 Freq: Status: Active Protocol: Activity Type Activity Date Activity User E-Sign Co-Sign Detail Recorded Client Recorded Date Recorded By Document 08/01/17 09:41 MW [id number] 08/01/17 09:44 MW 08/01/17 09:41 Wound Center Nurse 2 [Procedure/Treatment] #1 right lateral le trauma ulcer -Time 09:41 -Correct Patient Yes -Correct Side, Site, Position Yes -Correct Procedure Yes -Procedure Performed Yes -Type of Procedure Debridement -Clinical Debridement Subcutaneous -Post Debridement Size (cm) - Length 0.8 -Post Debridement Size (cm) - Width 0.5 -Post Debridement Size (cm) - Depth 0.2 -Total Square Cm 0.40 -Wound/Ulcer Outcome Not Healed -Ulcer Cleansing Rinsed/ Irrigated with Saline -Foul Odor after Cleansing No -Bioengineered Tissue No -Bleeding Controlled with Pressure -Treatment Response Procedure Tolerated Well [See Physician Procedure note for Specifics] Pain Scale: 0-10 Numeric [Pain] -Is Patient Pain Free? Yes Musculoskeletal: Tenderness - Slight tenderness to ulcer site Neurological: Sensory exam intact to light touch and pain Psych/Mental Status: Normal Affect, Appropriate Debridement Note Post-Debridement Measurements/Treatment WC - Nurse 2 - General Ulcer CM Notes Start: 07/25/17 09:17 Freq: Status: Active Protocol: Activity Type Activity Date Activity User E-Sign Co-Sign Detail Recorded Client Recorded Date Recorded By Document 07/25/17 09:32 MW [id number] 07/25/17 09:33 MW Document 08/01/17 09:41 MW [id number] 08/01/17 09:44 MW 07/25/17 08/01/17 09:32 09:41 Wound Center Nurse 2 #1 right lateral le trauma ulcer -Time 09:32 09:41 -Correct Patient Yes Yes -Correct Side, Site, Position Yes Yes -Correct Procedure Yes Yes -Procedure Performed Yes Yes -Type of Procedure Debridement Debridement -Clinical Debridement Subcutaneous Subcutaneous -Post Debridement Size (cm) - Length 0.9 0.8 -Post Debridement Size (cm) - Width 0.9 0.5 -Post Debridement Size (cm) - Depth 0.3 0.2 -Total Square Cm 0.81 0.40 -Wound/Ulcer Outcome Not Healed Not Healed -Ulcer Cleansing Rinsed/ Rinsed/ Irrigated with Irrigated with Saline Saline -Foul Odor after Cleansing No No -Bioengineered Tissue No No -Bleeding Controlled with Pressure Pressure -Treatment Response Procedure Procedure Tolerated Well Tolerated Well Pain Scale: 0-10 Numeric Is Patient Pain Free? Yes Yes Wound debrided: Right anterior lateral lower leg Laterality: Right Wound Grade/Stage: 2 Type of Debridement: Excisional debridement Anesthesia Used: 4% Lidocaine Solution Depth: in the subcutaneous layer Percentage of wound debrided: 100 Instrument Used: 3mm curette Tissue Removed: Adherent slough, fibrin, hyperkeratotic tissue Severity: Fat Layer Exposed Amount of bleeding with debridement: Mild Bleeding Controlled with: Pressure Patient tolerated procedure well Assessment/Plan Assessment: Chronic nonhealing ulcer to right anterior lateral lower leg. DM with neuropathy. PVD. Lower extremity edema. Malnutrition Plan: Patient was again examined and evaluated today. Subcutaneous debridement was performed as noted in the clinical panel. Another improvement noted again this week. Today we dressed the ulcer with slightly moistened tai, followed by a dry sterile dressing. Patient is to have dressings changed in this manner every other day again for the next week. He was instructed to lotion around the area to help with some dryness and itching. No clinical signs of infection appreciated. Patient saw his PCP yesterday and was started on keflex for 7 days and was also sent for evaluation of possible left DVT, which results showed were negative for DVT. There is no redness, warmth, or pain to the left leg today. I again recommended to continue high-protein diet to help optimize wound healing. Patient was educated on all signs and symptoms of local and systemic infection and were instructed to go to the ER immediately should he notice any. All other questions were answered to the patient's satisfaction. Patient will follow-up in clinic in 1 week for further evaluation.
--- NOTE | 2017-08-01 09:57 | PN.PCM_ITS ---
(1) Malnutrition Status: Suspected Current Visit: No Code(s): E46 - Unspecified protein- calorie malnutrition (2) Edema, lower extremity Status: Acute Current Visit: No Code(s): R60.0 - Localized edema (3) PVD (peripheral vascular disease) Status: Suspected Current Visit: No Code(s): I73.9 - Peripheral vascular disease, unspecified (4) Type 2 diabetes mellitus with diabetic polyneuropathy Status: Acute Current Visit: No Code(s): E11.42 - Type 2 diabetes mellitus with diabetic polyneuropathy (5) Non-pressure chronic ulcer of right lower leg with fat layer exposed Status: Acute Current Visit: No Code(s): L97.912 - Non-pressure chronic ulcer of unspecified part of right lower leg with fat layer exposed Type of Wound Date of Service: 08/01/17 Chief Complaint: non healing ulcer to right lower leg with fat layer exposed History of Wound: This 82-year-old diabetic male presents to the wound healing center today with for follow up of nonhealing ulcer to the anterior lateral aspect of the right lower leg. Patient states approximately 2-1/2 months ago the corner of the car door caught his leg and tore some skin. The ulcer slowly started to develop and get worse until it got to the state it is now. Denies any purulence or extending reddness surrounding ulcer. Patient finished his antibiotic prescription from Dr. Nicole. He currently denies any feelings of nausea, vomiting, fever, or chills. Progress of Wound: Patient presents today after second week of having tai applied to his ulcer every other day for the last week. There was no significant drainage or any other signs of infection appreciated. He said the skin around the area itched and has some slight excoriation noted. Patient currently denies any feelings of nausea, vomiting, fever, chills, or shortness of breath. - Physical Exam Vital Signs Temp Pulse Resp BP 97.8 F 84 18 129/64 H 08/01/17 09:30 08/01/17 09:30 08/01/17 09:30 08/01/17 09:30 General: Alert, Oriented x3, Cooperative, No apparent distress Extremities: Capillary Refill Less than 3 Seconds, No Calf Tenderness - Negative Arslan and Raines sign, Diminished Peripheral Pulses, Edema - Slight lower extremity edema Skin: Ulcer/ Wound - Ulcer to the right proximal anterior lateral lower leg with measurements noted below. Ulcer has shown another improvement in both size and depth this week. The base of the ulcer is majority of granular tissue as well as adherent slough, fibrin and some slight hyperkeratotic tissue. There continues to be no extending cellulitis, no increased warmth, no purulence , no malodor, no probing to bone, no tracking, and no undermining. I have Wound Measurements and Assessment WC - Nurse 1 - General Ulcer Measurement Start: 07/25/17 09:17 Freq: Status: Active Protocol: Activity Type Activity Date Activity User E-Sign Co-Sign Detail Recorded Client Recorded Date Recorded By Document 08/01/17 09:30 [id number] 08/01/17 09:32 08/01/17 09:30 Wound Center Nurse 1 [Ulcer Assessment] #1 right lateral le trauma ulcer -Combined with other wound No -Current Size (cm) - Length 0.9 -Current Size (cm) - Width 0.4 -Current Size (cm) - Depth 0.2 -Total Square Cm 0.36 -Photo Taken No -Epithelialization Small 1-33% -Tunneling No -Undermining/Tunneling No -Circular Undermining No -Classification - Thickness Full Thickness without Exposed Support Structure -Exudate Amt Small (1-33%) -Exudate Type Serosanguineous -Wound Margin Distinct, Outline Attached -Granulation Amt Large (67-100%) -Granulation Quality Pale [place] -Slough/Fibrin Yes -Necrosis Amt Small (1-33%) -Necrotic Tissue Type Adherent Slough -Structure Exposed Fascia Fat Layer Exposed -Texture (Olamide-wound Skin Appearance) Localized Edema Scarring -Moisture (Olamide-wound Skin Appearance Dry/Scaly ) -Color (Olamide-wound Skin Appearance) Erythema -Temperature (Olamide-wound Skin No Abnormality Appearance) (Pt Warm) -Tenderness on Palpation (Olamide-wound No Skin Appearance) -Ulcer Cleansing Rinsed/ Irrigated with Saline -Foul Odor after Cleansing No -Anesthetic Used 5% Lidocaine Gel [Edema Assessment] -Lower Limb Edema Present Yes -Right Calf (cm) 32.0 -Right Ankle (cm) 26.0 -Left Calf (cm) 36.0 -Left Ankle (cm) 27.0 WC - Nurse 2 - General Ulcer CM Notes Start: 05/03/18 09:17 Freq: Status: Active Protocol: Activity Type Activity Date Activity User E-Sign Co-Sign Detail Recorded Client Recorded Date Recorded By Document 08/01/17 09:41 MW [id number] 08/01/17 09:44 MW 08/01/17 09:41 Wound Center Nurse 2 [Procedure/Treatment] #1 right lateral le trauma ulcer -Time 09:41 -Correct Patient Yes -Correct Side, Site, Position Yes -Correct Procedure Yes -Procedure Performed Yes -Type of Procedure Debridement -Clinical Debridement Subcutaneous -Post Debridement Size (cm) - Length 0.8 -Post Debridement Size (cm) - Width 0.5 -Post Debridement Size (cm) - Depth 0.2 -Total Square Cm 0.40 -Wound/Ulcer Outcome Not Healed -Ulcer Cleansing Rinsed/ Irrigated with Saline -Foul Odor after Cleansing No -Bioengineered Tissue No -Bleeding Controlled with Pressure -Treatment Response Procedure Tolerated Well [See Physician Procedure note for Specifics] Pain Scale: 0-10 Numeric [Pain] -Is Patient Pain Free? Yes Musculoskeletal: Tenderness - Slight tenderness to ulcer site Neurological: Sensory exam intact to light touch and pain Psych/Mental Status: Normal Affect, Appropriate Debridement Note Post-Debridement Measurements/Treatment WC - Nurse 2 - General Ulcer CM Notes Start: 07/25/17 09:17 Freq: Status: Active Protocol: Activity Type Activity Date Activity User E-Sign Co-Sign Detail Recorded Client Recorded Date Recorded By Document 07/25/17 09:32 MW [id number] 07/25/17 09:33 MW Document 08/01/17 09:41 MW [id number] 08/01/17 09:44 MW 07/25/17 08/01/17 09:32 09:41 Wound Center Nurse 2 #1 right lateral le trauma ulcer -Time 09:32 09:41 -Correct Patient Yes Yes -Correct Side, Site, Position Yes Yes -Correct Procedure Yes Yes -Procedure Performed Yes Yes -Type of Procedure Debridement Debridement -Clinical Debridement Subcutaneous Subcutaneous -Post Debridement Size (cm) - Length 0.9 0.8 -Post Debridement Size (cm) - Width 0.9 0.5 -Post Debridement Size (cm) - Depth 0.3 0.2 -Total Square Cm 0.81 0.40 -Wound/Ulcer Outcome Not Healed Not Healed -Ulcer Cleansing Rinsed/ Rinsed/ Irrigated with Irrigated with Saline Saline -Foul Odor after Cleansing No No -Bioengineered Tissue No No -Bleeding Controlled with Pressure Pressure -Treatment Response Procedure Procedure Tolerated Well Tolerated Well Pain Scale: 0-10 Numeric Is Patient Pain Free? Yes Yes Wound debrided: Right anterior lateral lower leg Laterality: Right Wound Grade/Stage: 2 Type of Debridement: Excisional debridement Anesthesia Used: 4% Lidocaine Solution Depth: in the subcutaneous layer Percentage of wound debrided: 100 Instrument Used: 3mm curette Tissue Removed: Adherent slough, fibrin, hyperkeratotic tissue Severity: Fat Layer Exposed Amount of bleeding with debridement: Mild Bleeding Controlled with: Pressure Patient tolerated procedure well Assessment/Plan Assessment: Chronic nonhealing ulcer to right anterior lateral lower leg. DM with neuropathy. PVD. Lower extremity edema. Malnutrition Plan: Patient was again examined and evaluated today. Subcutaneous debridement was performed as noted in the clinical panel. Another improvement noted again this week. Today we dressed the ulcer with slightly moistened tai, followed by a dry sterile dressing. Patient is to have dressings changed in this manner every other day again for the next week. He was instructed to lotion around the area to help with some dryness and itching. No clinical signs of infection appreciated. Patient saw his PCP yesterday and was started on keflex for 7 days and was also sent for evaluation of possible left DVT, which results showed were negative for DVT. There is no redness, warmth, or pain to the left leg today. I again recommended to continue high-protein diet to help optimize wound healing. Patient was educated on all signs and symptoms of local and systemic infection and were instructed to go to the ER immediately should he notice any. All other questions were answered to the patient's satisfaction. Patient will follow-up in clinic in 1 week for further evaluation.
[2017-08-08 09:25] VITALS: BP 160/76; PULSE 87; RESP 16; TEMP 36.3; BMI 32.0
--- NOTE | 2017-08-08 10:06 | PCM.WC.PN ---
(1) Malnutrition Status: Suspected Current Visit: No Code(s): E46 - Unspecified protein-calorie malnutrition (2) Edema, lower extremity Status: Acute Current Visit: No Code(s): R60.0 - Localized edema (3) PVD (peripheral vascular disease) Status: Suspected Current Visit: No Code(s): I73.9 - Peripheral vascular disease, unspecified (4) Type 2 diabetes mellitus with diabetic polyneuropathy Status: Acute Current Visit: No Code(s): E11.42 - Type 2 diabetes mellitus with diabetic polyneuropathy (5) Non-pressure chronic ulcer of right lower leg with fat layer exposed Status: Acute Current Visit: No Code(s): L97.912 - Non-pressure chronic ulcer of unspecified part of right lower leg with fat layer exposed Type of Wound Date of Service: 08/08/17 Chief Complaint: non healing ulcer to right lower leg with fat layer exposed History of Wound: This 82-year-old diabetic male presents to the wound healing center today with for follow up of nonhealing ulcer to the anterior lateral aspect of the right lower leg. Patient states approximately 2-1/2 months ago the corner of the car door caught his leg and tore some skin. The ulcer slowly started to develop and get worse until it got to the state it is now. Denies any purulence or extending reddness surrounding ulcer. Patient finished his antibiotic prescription from Dr. Nicole. He currently denies any feelings of nausea, vomiting, fever, or chills. Progress of Wound: Patient presents today after third week of having tai applied to his ulcer every other day for the last week. There was no significant drainage or any other signs of infection appreciated. There continues to be steady improvement. Patient currently denies any feelings of nausea, vomiting, fever, chills, or shortness of breath. - Physical Exam Vital Signs Temp Pulse Resp BP 97.3 F L 87 16 160/76 H 08/08/17 09:25 08/08/17 09:25 08/08/17 09:25 08/08/17 09:25 General: Alert, Oriented x3, Cooperative, No apparent distress Extremities: Capillary Refill Less than 3 Seconds, No Calf Tenderness - Negative Arslan and Raines sign, Diminished Peripheral Pulses, Edema - Slight lower extremity edema Skin: Ulcer/ Wound - Ulcer to the right proximal anterior lateral lower leg with measurements noted below. Ulcer continues to show steady improvement at this time. Patient continues to be a mixture of granular tissue as well as adherent slough, fibrin and hyperkeratotic tissue. There is no extending cellulitis, no purulence, no malodor, no probing to bone, no tracking, no undermining. Wound Measurements and Assessment WC - Nurse 1 - General Ulcer Measurement Start: 07/25/17 09:17 Freq: Status: Active Protocol: Activity Type Activity Date Activity User E-Sign Co-Sign Detail Recorded Client Recorded Date Recorded By Document 08/08/17 09:25 [facility] [id number] 08/08/17 09:36 [facility] 08/08/17 09:25 Wound Center Nurse 1 [Ulcer Assessment] #1 right lateral le trauma ulcer -Combined with other wound No -Current Size (cm) - Length 0.5 -Current Size (cm) - Width 0.5 -Current Size (cm) - Depth 0.1 -Total Square Cm 0.25 -Date of Last Picture (Recall this 08/08/17 field) -Photo Taken Yes -Epithelialization Small 1-33% -Tunneling No -Undermining/Tunneling No -Circular Undermining No -Exudate Amt Small (1-33%) -Exudate Type Serosanguineous -Wound Margin Distinct, Outline Attached -Granulation Amt Small (1-33%) -Granulation Quality Red -Slough/Fibrin Yes -Necrosis Amt Medium (34-66%) -Necrotic Tissue Type Adherent Slough -Structure Exposed None/Limited to Skin Breakdown -Texture (Olamide-wound Skin Appearance) Scarring -Moisture (Olamide-wound Skin Appearance Dry/Scaly ) -Color (Olamide-wound Skin Appearance) Assessed Hemosiderin Staining -Temperature (Olamide-wound Skin No Abnormality Appearance) (Pt Warm) -Tenderness on Palpation (Olamide-wound No Skin Appearance) -Ulcer Cleansing Rinsed/ Irrigated with Saline -Foul Odor after Cleansing No -Anesthetic Used 4% Lidocaine Solution [Edema Assessment] -Lower Limb Edema Present Yes -Right Calf (cm) 38.6 -Right Ankle (cm) 25 - Nurse 2 - General Ulcer CM Notes Start: 07/25/17 09:17 Freq: Status: Active Protocol: Activity Type Activity Date Activity User E-Sign Co-Sign Detail Recorded Client Recorded Date Recorded By Document 08/08/17 10:01 [id number] 08/08/17 10:06 08/08/17 10:01 Wound Center Nurse 2 [Procedure/Treatment] #1 right lateral le trauma ulcer -Time 10:01 -Correct Patient Yes -Correct Side, Site, Position Yes -Correct Procedure Yes -Procedure Performed Yes -Type of Procedure Debridement -Clinical Debridement Subcutaneous -Post Debridement Size (cm) - Length 0.4 -Post Debridement Size (cm) - Width 0.7 -Post Debridement Size (cm) - Depth 0.2 -Total Square Cm 0.28 -Wound/Ulcer Outcome Not Healed -Ulcer Cleansing Rinsed/ Irrigated with Saline -Foul Odor after Cleansing No -Bioengineered Tissue No -Topical Lidocaine (%) 4 -Lidocaine (ml) 5 -Bleeding Controlled with NA -Treatment Response Procedure Tolerated Well [See Physician Procedure note for Specifics] Pain Scale: 0-10 Numeric [Pain] -Is Patient Pain Free? Yes Musculoskeletal: Tenderness - Slight tenderness with manipulation of ulcer site Neurological: Sensory exam intact to light touch and pain Psych/Mental Status: Normal Affect, Appropriate Debridement Note Post-Debridement Measurements/Treatment WC - Nurse 2 - General Ulcer CM Notes Start: 07/25/17 09:17 Freq: Status: Active Protocol: Activity Type Activity Date Activity User E-Sign Co-Sign Detail Recorded Client Recorded Date Recorded By Document 07/25/17 09:32 MW [id number] 07/25/17 09:33 MW Document 08/01/17 09:41 MW [id number] 08/01/17 09:44 MW Document 08/08/17 10:01 [id number] 08/08/17 10:06 07/25/17 08/01/17 08/08/17 09:32 09:41 10:01 Wound Center Nurse 2 #1 right lateral le trauma ulcer -Time 09:32 09:41 10:01 -Correct Patient Yes Yes Yes -Correct Side, Site, Position Yes Yes Yes -Correct Procedure Yes Yes Yes -Procedure Performed Yes Yes Yes -Type of Procedure Debridement Debridement Debridement -Clinical Debridement Subcutaneous Subcutaneous Subcutaneous -Post Debridement Size (cm) - Length 0.9 0.8 0.4 -Post Debridement Size (cm) - Width 0.9 0.5 0.7 -Post Debridement Size (cm) - Depth 0.3 0.2 0.2 -Total Square Cm 0.81 0.40 0.28 -Wound/Ulcer Outcome Not Healed Not Healed Not Healed -Ulcer Cleansing Rinsed/ Rinsed/ Rinsed/ Irrigated with Irrigated with Irrigated with Saline Saline Saline -Foul Odor after Cleansing No No No -Bioengineered Tissue No No No -Topical Lidocaine (%) 4 -Lidocaine (ml) 5 -Bleeding Controlled with Pressure Pressure NA -Treatment Response Procedure Procedure Procedure Tolerated Well Tolerated Well Tolerated Well Pain Scale: 0-10 Numeric Is Patient Pain Free? Yes Yes Yes Wound debrided: Right anterior lateral lower leg Laterality: Right Wound Grade/Stage: 2 Type of Debridement: Excisional debridement Anesthesia Used: 4% Lidocaine Solution Depth: in the subcutaneous layer Percentage of wound debrided: 100 Instrument Used: 3mm curette Tissue Removed: Adherent slough, fibrin, hyperkeratotic tissue Severity: Fat Layer Exposed Amount of bleeding with debridement: Mild Bleeding Controlled with: Pressure Patient tolerated procedure well Assessment/Plan Assessment: Chronic nonhealing ulcer to right anterior lateral lower leg. DM with neuropathy. PVD. Lower extremity edema. Malnutrition Plan: Patient was again examined and evaluated today. Subcutaneous debridement was performed as noted in the clinical panel. Another significant improvement was noted again this week. Ulcer was again dressed with slightly moistened tai, followed by a dry sterile dressing. Patient is to have dressings changed in this manner every other day again for the next week. He was instructed to continue to lotion around the area to help with some dryness and itching. No clinical signs of acute infection appreciated. I again recommended to continue high-protein diet to help optimize wound healing. Patient was educated on all signs and symptoms of local and systemic infection and were instructed to go to the ER immediately should he notice any. All other questions were answered to the patient's satisfaction. Patient will follow-up in clinic in 1 week for further evaluation.
--- NOTE | 2017-08-08 10:12 | PN.PCM_ITS ---
(1) Malnutrition Status: Suspected Current Visit: No Code(s): E46 - Unspecified protein- calorie malnutrition (2) Edema, lower extremity Status: Acute Current Visit: No Code(s): R60.0 - Localized edema (3) PVD (peripheral vascular disease) Status: Suspected Current Visit: No Code(s): I73.9 - Peripheral vascular disease, unspecified (4) Type 2 diabetes mellitus with diabetic polyneuropathy Status: Acute Current Visit: No Code(s): E11.42 - Type 2 diabetes mellitus with diabetic polyneuropathy (5) Non-pressure chronic ulcer of right lower leg with fat layer exposed Status: Acute Current Visit: No Code(s): L97.912 - Non-pressure chronic ulcer of unspecified part of right lower leg with fat layer exposed Type of Wound Date of Service: 08/08/17 Chief Complaint: non healing ulcer to right lower leg with fat layer exposed History of Wound: This 82-year-old diabetic male presents to the wound healing center today with for follow up of nonhealing ulcer to the anterior lateral aspect of the right lower leg. Patient states approximately 2-1/2 months ago the corner of the car door caught his leg and tore some skin. The ulcer slowly started to develop and get worse until it got to the state it is now. Denies any purulence or extending reddness surrounding ulcer. Patient finished his antibiotic prescription from Dr. Nicole. He currently denies any feelings of nausea, vomiting, fever, or chills. Progress of Wound: Patient presents today after third week of having tai applied to his ulcer every other day for the last week. There was no significant drainage or any other signs of infection appreciated. There continues to be steady improvement. Patient currently denies any feelings of nausea, vomiting, fever, chills, or shortness of breath. - Physical Exam Vital Signs Temp Pulse Resp BP 97.3 F L 87 16 160/76 H 08/08/17 09:25 08/08/17 09:25 08/08/17 09:25 08/08/17 09:25 General: Alert, Oriented x3, Cooperative, No apparent distress Extremities: Capillary Refill Less than 3 Seconds, No Calf Tenderness - Negative Arslan and Raines sign, Diminished Peripheral Pulses, Edema - Slight lower extremity edema Skin: Ulcer/ Wound - Ulcer to the right proximal anterior lateral lower leg with measurements noted below. Ulcer continues to show steady improvement at this time. Patient continues to be a mixture of granular tissue as well as adherent slough, fibrin and hyperkeratotic tissue. There is no extending cellulitis, no purulence, no malodor, no probing to bone, no tracking, no undermining. Wound Measurements and Assessment WC - Nurse 1 - General Ulcer Measurement Start: 07/25/17 09:17 Freq: Status: Active Protocol: Activity Type Activity Date Activity User E-Sign Co-Sign Detail Recorded Client Recorded Date Recorded By Document 08/08/17 09:25 [facility] [id number] 08/08/17 09:36 [facility] 08/08/17 09:25 Wound Center Nurse 1 [Ulcer Assessment] #1 right lateral le trauma ulcer -Combined with other wound No -Current Size (cm) - Length 0.5 -Current Size (cm) - Width 0.5 -Current Size (cm) - Depth 0.1 -Total Square Cm 0.25 -Date of Last Picture (Recall this 08/08/17 field) -Photo Taken Yes -Epithelialization Small 1-33% -Tunneling No -Undermining/Tunneling No -Circular Undermining No -Exudate Amt Small (1-33%) -Exudate Type Serosanguineous -Wound Margin Distinct, Outline Attached -Granulation Amt Small (1-33%) -Granulation Quality Red -Slough/Fibrin Yes -Necrosis Amt Medium (34-66%) -Necrotic Tissue Type Adherent Slough -Structure Exposed None/Limited to Skin Breakdown -Texture (Olamide-wound Skin Appearance) Scarring -Moisture (Olamide-wound Skin Appearance Dry/Scaly ) -Color (Olamide-wound Skin Appearance) Assessed Hemosiderin Staining -Temperature (Olamide-wound Skin No Abnormality Appearance) (Pt Warm) -Tenderness on Palpation (Olamide-wound No Skin Appearance) -Ulcer Cleansing Rinsed/ Irrigated with Saline -Foul Odor after Cleansing No -Anesthetic Used 4% Lidocaine Solution [Edema Assessment] -Lower Limb Edema Present Yes -Right Calf (cm) 38.6 -Right Ankle (cm) 25 - Nurse 2 - General Ulcer CM Notes Start: 07/25/17 09:17 Freq: Status: Active Protocol: Activity Type Activity Date Activity User E-Sign Co-Sign Detail Recorded Client Recorded Date Recorded By Document 08/08/17 10:01 [id number] 08/08/17 10:06 08/08/17 10:01 Wound Center Nurse 2 [Procedure/Treatment] #1 right lateral le trauma ulcer -Time 10:01 -Correct Patient Yes -Correct Side, Site, Position Yes -Correct Procedure Yes -Procedure Performed Yes -Type of Procedure Debridement -Clinical Debridement Subcutaneous -Post Debridement Size (cm) - Length 0.4 -Post Debridement Size (cm) - Width 0.7 -Post Debridement Size (cm) - Depth 0.2 -Total Square Cm 0.28 -Wound/Ulcer Outcome Not Healed -Ulcer Cleansing Rinsed/ Irrigated with Saline -Foul Odor after Cleansing No -Bioengineered Tissue No -Topical Lidocaine (%) 4 -Lidocaine (ml) 5 -Bleeding Controlled with NA -Treatment Response Procedure Tolerated Well [See Physician Procedure note for Specifics] Pain Scale: 0-10 Numeric [Pain] -Is Patient Pain Free? Yes Musculoskeletal: Tenderness - Slight tenderness with manipulation of ulcer site Neurological: Sensory exam intact to light touch and pain Psych/Mental Status: Normal Affect, Appropriate Debridement Note Post-Debridement Measurements/Treatment WC - Nurse 2 - General Ulcer CM Notes Start: 07/25/17 09:17 Freq: Status: Active Protocol: Activity Type Activity Date Activity User E-Sign Co-Sign Detail Recorded Client Recorded Date Recorded By Document 07/25/17 09:32 MW [id number] 07/25/17 09:33 MW Document 08/01/17 09:41 MW [id number] 08/01/17 09:44 MW Document 08/08/17 10:01 [id number] 08/08/17 10:06 07/25/17 08/01/17 08/08/17 09:32 09:41 10:01 Wound Center Nurse 2 #1 right lateral le trauma ulcer -Time 09:32 09:41 10:01 -Correct Patient Yes Yes Yes -Correct Side, Site, Position Yes Yes Yes -Correct Procedure Yes Yes Yes -Procedure Performed Yes Yes Yes -Type of Procedure Debridement Debridement Debridement -Clinical Debridement Subcutaneous Subcutaneous Subcutaneous -Post Debridement Size (cm) - Length 0.9 0.8 0.4 -Post Debridement Size (cm) - Width 0.9 0.5 0.7 -Post Debridement Size (cm) - Depth 0.3 0.2 0.2 -Total Square Cm 0.81 0.40 0.28 -Wound/Ulcer Outcome Not Healed Not Healed Not Healed -Ulcer Cleansing Rinsed/ Rinsed/ Rinsed/ Irrigated with Irrigated with Irrigated with Saline Saline Saline -Foul Odor after Cleansing No No No -Bioengineered Tissue No No No -Topical Lidocaine (%) 4 -Lidocaine (ml) 5 -Bleeding Controlled with Pressure Pressure NA -Treatment Response Procedure Procedure Procedure Tolerated Well Tolerated Well Tolerated Well Pain Scale: 0-10 Numeric Is Patient Pain Free? Yes Yes Yes Wound debrided: Right anterior lateral lower leg Laterality: Right Wound Grade/Stage: 2 Type of Debridement: Excisional debridement Anesthesia Used: 4% Lidocaine Solution Depth: in the subcutaneous layer Percentage of wound debrided: 100 Instrument Used: 3mm curette Tissue Removed: Adherent slough, fibrin, hyperkeratotic tissue Severity: Fat Layer Exposed Amount of bleeding with debridement: Mild Bleeding Controlled with: Pressure Patient tolerated procedure well Assessment/Plan Assessment: Chronic nonhealing ulcer to right anterior lateral lower leg. DM with neuropathy. PVD. Lower extremity edema. Malnutrition Plan: Patient was again examined and evaluated today. Subcutaneous debridement was performed as noted in the clinical panel. Another significant improvement was noted again this week. Ulcer was again dressed with slightly moistened tai, followed by a dry sterile dressing. Patient is to have dressings changed in this manner every other day again for the next week. He was instructed to continue to lotion around the area to help with some dryness and itching. No clinical signs of acute infection appreciated. I again recommended to continue high-protein diet to help optimize wound healing. Patient was educated on all signs and symptoms of local and systemic infection and were instructed to go to the ER immediately should he notice any. All other questions were answered to the patient's satisfaction. Patient will follow-up in clinic in 1 week for further evaluation.
[2017-08-15 09:58] VITALS: BP 146/71; PULSE 70; RESP 20; TEMP 36.2; BMI 32.0
--- NOTE | 2017-08-15 14:13 | PCM.WC.PN ---
(1) Malnutrition Status: Suspected Current Visit: No Code(s): E46 - Unspecified protein-calorie malnutrition (2) Edema, lower extremity Status: Acute Current Visit: No Code(s): R60.0 - Localized edema (3) PVD (peripheral vascular disease) Status: Suspected Current Visit: No Code(s): I73.9 - Peripheral vascular disease, unspecified (4) Type 2 diabetes mellitus with diabetic polyneuropathy Status: Acute Current Visit: No Code(s): E11.42 - Type 2 diabetes mellitus with diabetic polyneuropathy (5) Non-pressure chronic ulcer of right lower leg with fat layer exposed Status: Acute Current Visit: No Code(s): L97.912 - Non-pressure chronic ulcer of unspecified part of right lower leg with fat layer exposed Type of Wound Date of Service: 08/15/17 Chief Complaint: non healing ulcer to right lower leg with fat layer exposed History of Wound: This 82-year-old diabetic male presents to the wound healing center today with for follow up of nonhealing ulcer to the anterior lateral aspect of the right lower leg. Patient states approximately 2-1/2 months ago the corner of the car door caught his leg and tore some skin. The ulcer slowly started to develop and get worse until it got to the state it is now. Denies any purulence or extending reddness surrounding ulcer. Patient finished his antibiotic prescription from Dr. Nicole. He currently denies any feelings of nausea, vomiting, fever, or chills. Progress of Wound: Patient presents today after fourth week of having tai applied to his ulcer every other day for the last week. There was no significant drainage or any other signs of infection appreciated. Patient feels he made significant improvement again last week and is healed. Patient currently denies any feelings of nausea, vomiting, fever, chills, or shortness of breath. - Physical Exam Vital Signs Temp Pulse Resp BP 97.1 F L 70 20 H 146/71 H 08/15/17 09:58 08/15/17 09:58 08/15/17 09:58 08/15/17 09:58 General: Alert, Oriented x3, Cooperative, No apparent distress Extremities: Capillary Refill Less than 3 Seconds, No Calf Tenderness - Negative Arslan and Raines sign, Diminished Peripheral Pulses, Edema - Slight lower extremity Skin: Ulcer/ Wound - Ulcer to the right proximal anterior lateral lower leg is healed today. There is no signs of local infection appreciated at this time. Wound Measurements and Assessment WC - Nurse 1 - General Ulcer Measurement Start: 07/25/17 09:17 Freq: Status: Active Protocol: Activity Type Activity Date Activity User E-Sign Co-Sign Detail Recorded Client Recorded Date Recorded By Document 08/15/17 09:58 [id number] 08/15/17 10:07 08/15/17 09:58 Wound Center Nurse 1 [Ulcer Assessment] #1 right lateral le trauma ulcer -Current Size (cm) - Length 0 -Current Size (cm) - Width 0 -Current Size (cm) - Depth 0 -Total Square Cm 0 -Photo Taken Yes -Exudate Amt None Present (0 %) -Wound Margin Flat & Intact -Granulation Amt Large (67-100%) -Granulation Quality [place] -Necrosis Amt None Present (0 %) -Structure Exposed N/A -Texture (Olamide-wound Skin Appearance) Scarring -Moisture (Olamide-wound Skin Appearance Dry/Scaly ) -Color (Olamide-wound Skin Appearance) Hemosiderin Staining -Temperature (Olamide-wound Skin No Abnormality Appearance) (Pt Warm) -Ulcer Cleansing Rinsed/ Irrigated with Saline -Foul Odor after Cleansing No -Anesthetic Used 4% Lidocaine Solution [Edema Assessment] -Right Calf (cm) 33 -Right Ankle (cm) 25.6 WC - Nurse 2 - General Ulcer CM Notes Start: 07/25/17 09:17 Freq: Status: Active Protocol: Activity Type Activity Date Activity User E-Sign Co-Sign Detail Recorded Client Recorded Date Recorded By Document 08/15/17 11:20 [id number] 08/15/17 11:22 08/15/17 11:20 Wound Center Nurse 2 [Procedure/Treatment] #1 right lateral le trauma ulcer -Time 11:20 -Correct Patient Yes -Correct Side, Site, Position Yes -Correct Procedure Yes -Procedure Performed No -Post Debridement Size (cm) - Length 0 -Post Debridement Size (cm) - Width 0 -Post Debridement Size (cm) - Depth 0 -Total Square Cm 0 -Wound/Ulcer Outcome Healed- Epithelialized -Ulcer Cleansing Not Cleansed -Foul Odor after Cleansing No -Bioengineered Tissue No -Bleeding Controlled with NA [See Physician Procedure note for Specifics] Pain Scale: 0-10 Numeric [Pain] -Is Patient Pain Free? Yes Musculoskeletal: No Tenderness to Palpation of Joints or Extremities Neurological: Sensory exam intact to light touch and pain Psych/Mental Status: Normal Affect, Appropriate Debridement Note Post-Debridement Measurements/Treatment WC - Nurse 2 - General Ulcer CM Notes Start: 07/25/17 09:17 Freq: Status: Active Protocol: Activity Type Activity Date Activity User E-Sign Co-Sign Detail Recorded Client Recorded Date Recorded By Document 07/25/17 09:32 MW [id number] 07/25/17 09:33 MW Document 08/01/17 09:41 MW [id number] 08/01/17 09:44 MW Document 08/08/17 10:01 JS [id number] 08/08/17 10:06 JS Document 08/15/17 11:20 JS [id number] 08/15/17 11:22 JS 07/25/17 08/01/17 08/08/17 09:32 09:41 10:01 Wound Center Nurse 2 #1 right lateral le trauma ulcer -Time 09:32 09:41 10:01 -Correct Patient Yes Yes Yes -Correct Side, Site, Position Yes Yes Yes -Correct Procedure Yes Yes Yes -Procedure Performed Yes Yes Yes -Type of Procedure Debridement Debridement Debridement -Clinical Debridement Subcutaneous Subcutaneous Subcutaneous -Post Debridement Size (cm) - Length 0.9 0.8 0.4 -Post Debridement Size (cm) - Width 0.9 0.5 0.7 -Post Debridement Size (cm) - Depth 0.3 0.2 0.2 -Total Square Cm 0.81 0.40 0.28 -Wound/Ulcer Outcome Not Healed Not Healed Not Healed -Ulcer Cleansing Rinsed/ Rinsed/ Rinsed/ Irrigated with Irrigated with Irrigated with Saline Saline Saline -Foul Odor after Cleansing No No No -Bioengineered Tissue No No No -Topical Lidocaine (%) 4 -Lidocaine (ml) 5 -Bleeding Controlled with Pressure Pressure NA -Treatment Response Procedure Procedure Procedure Tolerated Well Tolerated Well Tolerated Well Pain Scale: 0-10 Numeric Is Patient Pain Free? Yes Yes Yes 08/15/17 11:20 Wound Center Nurse 2 #1 right lateral le trauma ulcer -Time 11:20 -Correct Patient Yes -Correct Side, Site, Position Yes -Correct Procedure Yes -Procedure Performed No -Type of Procedure -Clinical Debridement -Post Debridement Size (cm) - Length 0 -Post Debridement Size (cm) - Width 0 -Post Debridement Size (cm) - Depth 0 -Total Square Cm 0 -Wound/Ulcer Outcome Healed- Epithelialized -Ulcer Cleansing Not Cleansed -Foul Odor after Cleansing No -Bioengineered Tissue No -Topical Lidocaine (%) -Lidocaine (ml) -Bleeding Controlled with NA -Treatment Response Pain Scale: 0-10 Numeric Is Patient Pain Free? Yes No debridement was completed today Assessment/Plan Assessment: Chronic nonhealing ulcer to right anterior lateral lower leg. DM with neuropathy. PVD. Lower extremity edema. Malnutrition Plan: Patient was again examined and evaluated today. No debridement performed today, as the patient is healed. Patient was instructed to keep an eye on the area and to continue to keep the area protected as the area strenghtens. He was instructed to continue to lotion around the area to help with some dryness and itching. No clinical signs of acute infection appreciated. Patient was educated on all signs and symptoms of local and systemic infection and were instructed to go to the ER immediately should he notice any. All other questions were answered to the patient's satisfaction. At this time the patient will be discharged from the wound healing center, but was instructed to call the office if any issues arise.
--- NOTE | 2017-08-15 14:17 | PN.PCM_ITS ---
(1) Malnutrition Status: Suspected Current Visit: No Code(s): E46 - Unspecified protein- calorie malnutrition (2) Edema, lower extremity Status: Acute Current Visit: No Code(s): R60.0 - Localized edema (3) PVD (peripheral vascular disease) Status: Suspected Current Visit: No Code(s): I73.9 - Peripheral vascular disease, unspecified (4) Type 2 diabetes mellitus with diabetic polyneuropathy Status: Acute Current Visit: No Code(s): E11.42 - Type 2 diabetes mellitus with diabetic polyneuropathy (5) Non-pressure chronic ulcer of right lower leg with fat layer exposed Status: Acute Current Visit: No Code(s): L97.912 - Non-pressure chronic ulcer of unspecified part of right lower leg with fat layer exposed Type of Wound Date of Service: 08/15/17 Chief Complaint: non healing ulcer to right lower leg with fat layer exposed History of Wound: This 82-year-old diabetic male presents to the wound healing center today with for follow up of nonhealing ulcer to the anterior lateral aspect of the right lower leg. Patient states approximately 2-1/2 months ago the corner of the car door caught his leg and tore some skin. The ulcer slowly started to develop and get worse until it got to the state it is now. Denies any purulence or extending reddness surrounding ulcer. Patient finished his antibiotic prescription from Dr. Nicole. He currently denies any feelings of nausea, vomiting, fever, or chills. Progress of Wound: Patient presents today after fourth week of having tai applied to his ulcer every other day for the last week. There was no significant drainage or any other signs of infection appreciated. Patient feels he made significant improvement again last week and is healed. Patient currently denies any feelings of nausea, vomiting, fever, chills, or shortness of breath. - Physical Exam Vital Signs Temp Pulse Resp BP 97.1 F L 70 20 H 146/71 H 08/15/17 09:58 08/15/17 09:58 08/15/17 09:58 08/15/17 09:58 General: Alert, Oriented x3, Cooperative, No apparent distress Extremities: Capillary Refill Less than 3 Seconds, No Calf Tenderness - Negative Arslan and Raines sign, Diminished Peripheral Pulses, Edema - Slight lower extremity Skin: Ulcer/ Wound - Ulcer to the right proximal anterior lateral lower leg is healed today. There is no signs of local infection appreciated at this time. Wound Measurements and Assessment WC - Nurse 1 - General Ulcer Measurement Start: 07/25/17 09:17 Freq: Status: Active Protocol: Activity Type Activity Date Activity User E-Sign Co-Sign Detail Recorded Client Recorded Date Recorded By Document 08/15/17 09:58 [id number] 08/15/17 10:07 08/15/17 09:58 Wound Center Nurse 1 [Ulcer Assessment] #1 right lateral le trauma ulcer -Current Size (cm) - Length 0 -Current Size (cm) - Width 0 -Current Size (cm) - Depth 0 -Total Square Cm 0 -Photo Taken Yes -Exudate Amt None Present (0 %) -Wound Margin Flat & Intact -Granulation Amt Large (67-100%) -Granulation Quality [place] -Necrosis Amt None Present (0 %) -Structure Exposed N/A -Texture (Olamide-wound Skin Appearance) Scarring -Moisture (Olamide-wound Skin Appearance Dry/Scaly ) -Color (Olamide-wound Skin Appearance) Hemosiderin Staining -Temperature (Olamide-wound Skin No Abnormality Appearance) (Pt Warm) -Ulcer Cleansing Rinsed/ Irrigated with Saline -Foul Odor after Cleansing No -Anesthetic Used 4% Lidocaine Solution [Edema Assessment] -Right Calf (cm) 33 -Right Ankle (cm) 25.6 WC - Nurse 2 - General Ulcer CM Notes Start: 07/25/17 09:17 Freq: Status: Active Protocol: Activity Type Activity Date Activity User E-Sign Co-Sign Detail Recorded Client Recorded Date Recorded By Document 08/15/17 11:20 [id number] 08/15/17 11:22 08/15/17 11:20 Wound Center Nurse 2 [Procedure/Treatment] #1 right lateral le trauma ulcer -Time 11:20 -Correct Patient Yes -Correct Side, Site, Position Yes -Correct Procedure Yes -Procedure Performed No -Post Debridement Size (cm) - Length 0 -Post Debridement Size (cm) - Width 0 -Post Debridement Size (cm) - Depth 0 -Total Square Cm 0 -Wound/Ulcer Outcome Healed- Epithelialized -Ulcer Cleansing Not Cleansed -Foul Odor after Cleansing No -Bioengineered Tissue No -Bleeding Controlled with NA [See Physician Procedure note for Specifics] Pain Scale: 0-10 Numeric [Pain] -Is Patient Pain Free? Yes Musculoskeletal: No Tenderness to Palpation of Joints or Extremities Neurological: Sensory exam intact to light touch and pain Psych/Mental Status: Normal Affect, Appropriate Debridement Note Post-Debridement Measurements/Treatment WC - Nurse 2 - General Ulcer CM Notes Start: 07/25/17 09:17 Freq: Status: Active Protocol: Activity Type Activity Date Activity User E-Sign Co-Sign Detail Recorded Client Recorded Date Recorded By Document 07/25/17 09:32 MW [id number] 07/25/17 09:33 MW Document 08/01/17 09:41 MW [id number] 08/01/17 09:44 MW Document 08/08/17 10:01 JS [id number] 08/08/17 10:06 JS Document 08/15/17 11:20 JS [id number] 08/15/17 11:22 JS 07/25/17 08/01/17 08/08/17 09:32 09:41 10:01 Wound Center Nurse 2 #1 right lateral le trauma ulcer -Time 09:32 09:41 10:01 -Correct Patient Yes Yes Yes -Correct Side, Site, Position Yes Yes Yes -Correct Procedure Yes Yes Yes -Procedure Performed Yes Yes Yes -Type of Procedure Debridement Debridement Debridement -Clinical Debridement Subcutaneous Subcutaneous Subcutaneous -Post Debridement Size (cm) - Length 0.9 0.8 0.4 -Post Debridement Size (cm) - Width 0.9 0.5 0.7 -Post Debridement Size (cm) - Depth 0.3 0.2 0.2 -Total Square Cm 0.81 0.40 0.28 -Wound/Ulcer Outcome Not Healed Not Healed Not Healed -Ulcer Cleansing Rinsed/ Rinsed/ Rinsed/ Irrigated with Irrigated with Irrigated with Saline Saline Saline -Foul Odor after Cleansing No No No -Bioengineered Tissue No No No -Topical Lidocaine (%) 4 -Lidocaine (ml) 5 -Bleeding Controlled with Pressure Pressure NA -Treatment Response Procedure Procedure Procedure Tolerated Well Tolerated Well Tolerated Well Pain Scale: 0-10 Numeric Is Patient Pain Free? Yes Yes Yes 08/15/17 11:20 Wound Center Nurse 2 #1 right lateral le trauma ulcer -Time 11:20 -Correct Patient Yes -Correct Side, Site, Position Yes -Correct Procedure Yes -Procedure Performed No -Type of Procedure -Clinical Debridement -Post Debridement Size (cm) - Length 0 -Post Debridement Size (cm) - Width 0 -Post Debridement Size (cm) - Depth 0 -Total Square Cm 0 -Wound/Ulcer Outcome Healed- Epithelialized -Ulcer Cleansing Not Cleansed -Foul Odor after Cleansing No -Bioengineered Tissue No -Topical Lidocaine (%) -Lidocaine (ml) -Bleeding Controlled with NA -Treatment Response Pain Scale: 0-10 Numeric Is Patient Pain Free? Yes No debridement was completed today Assessment/Plan Assessment: Chronic nonhealing ulcer to right anterior lateral lower leg. DM with neuropathy. PVD. Lower extremity edema. Malnutrition Plan: Patient was again examined and evaluated today. No debridement performed today, as the patient is healed. Patient was instructed to keep an eye on the area and to continue to keep the area protected as the area strenghtens. He was instructed to continue to lotion around the area to help with some dryness and itching. No clinical signs of acute infection appreciated. Patient was educated on all signs and symptoms of local and systemic infection and were instructed to go to the ER immediately should he notice any. All other questions were answered to the patient's satisfaction. At this time the patient will be discharged from the wound healing center, but was instructed to call the office if any issues arise.
== END 2017-08-22 23:59 ==
LOC: WC 09:30
PROVIDERS: Family Provider Family Medicine; PCP Family Medicine; Visit Provider Podiatrist
DX: L97.912 Non-pressure chronic ulcer of unspecified part of right lower leg with fat layer exposed (principal); E11.42 Type 2 diabetes mellitus with diabetic polyneuropathy; R60.0 Localized edema; I73.9 Peripheral vascular disease, unspecified; E46 Unspecified protein-calorie malnutrition
CPT/HCPCS: 11042; 99211; G0463